=== PATIENT | male | born 1965 | race Caucasian/White ===

== ENCOUNTER 2024-11-07 04:06 | Inpatient (IN) | payer OTHER, SELFPAY ==
[2024-11-07] VITALS (16 sets, daily range): BP systolic 96–114; BP diastolic 63–82; PULSE 56–107; RESP 12–25; TEMP 36.6–36.9; O2SAT 96–100; BMI 33.3
--- NOTE | 2024-11-07 04:04 | PCM.HP.STD ---
HPI - General General Date of Admission: 11/07/24 Date of Service: 11/07/24 Chief Complaint: A-fib with RVR HPI Narrative AMALIA SERVIN, is a 59 M who presented initially to [facility] ED on the evening of 11/06 with chest discomfort and palpitations. He was found there to have new onset A-fib with RVR with rate in the 140s to 150s. Started on Cardizem drip with improvement in rate to the 90s to 100s but remained in A-fib. 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 I saw the patient at bedside this morning. Patient was laying back comfortably in bed, conversing normally, in no acute distress. He does report mild chest discomfort with palpitations currently and on the monitor he remains in A-fib with rate in the 90s to 100s. He is currently on the Cardizem drip at 5. Patient has no significant past medical history, is on no medications at home. He reports an episode similar to this about 1 month ago that lasted for 10 to 15 minutes and then resolved on its own. He denies any alcohol or tobacco use. At outside ED, his lab workup was benign with troponins negative x 2, normal BNP and normal TSH. CBC and BMP were unremarkable. [facility] Home Medications ?Medication ?Instructions ?Recorded ?Last Taken ?Type NK 11/07/24 Unknown History Allergy/AdvReac Type Severity Reaction Status Date / Time Penicillins Allergy Severe Anaphylaxis Verified 11/07/24 04:07 Social History Smoking Status: Never smoker ROS Constitutional Constitutional: Denies chills, fatigue, fever(s) or weakness Eyes Eyes: Denies change in vision Cardiovascular Cardiovascular: Reports chest pain, palpitations and rapid heart rate; Denies dyspnea on exertion, edema, lightheadedness or orthopnea Respiratory/Chest Respiratory/Chest: Denies cough, shortness of breath at rest or wheezing Gastrointestinal Gastrointestinal: Denies abdominal pain Neurologic Neurologic: Denies dizziness Vital Signs Vital Signs Vital Signs: Weight Weight: 105.3 kg Body Mass Index (BMI) 33.3 Physical Exam Const alert, oriented x3 and no apparent distress Constitutional Narrative: Pleasant middle-age male, class I obesity, sitting back comfortably in bed, conversing normally, in no acute distress. General Appearance: cooperative and comfortable HEENT normocephalic, head/scalp atraumatic, hearing grossly normal bilaterally, nasal mucous membranes and turbinates normal and moist oral mucous membranes Eyes PERRL, EOMs intact bilaterally and conjunctivae normal Neck full ROM Chest inspection of chest normal Resp normal respiratory effort, normal air movement, no use of accessory muscles and clear to auscultation bilaterally Cardio no murmurs and peripheral pulses 2+ throughout Cardio Narrative: A-fib, rate controlled. GI normal to inspection, nondistended, normoactive bowel sounds, soft to palpation, non-tender and non-distended Back/Spine normal ROM Extremity normal to inspection, full ROM and no pedal edema Skin no rashes or lesions noted Psych mental status grossly normal Results Lab / Micro Data 11/07/24 04:25 11/07/24 04:25 Assessment & Plan Assessment/Plan (1) Paroxysmal atrial fibrillation with RVR: PLAN: Plan Patient is a 59-year-old male who initially presented to [facility] ED on 11/06/2024 with chest discomfort and palpitations. Was found to have new onset A-fib with RVR and was transferred to [facility] on 11/07 for further management. 1. New onset A-fib with RVR ? Admit under inpatient status to PCU. Cardiology consulted. No significant past medical history. Presented with A-fib with RVR with rate to the 140s 150s. Rate improved to the 90s to 100s on Cardizem drip but remains in A-fib. Episode of chest discomfort with palpitations started about 30 minutes prior to his arrival to their ED. Appears patient may be a good cardioversion candidate but will defer this to cardiology. Will keep patient n.p.o. for now. Will continue Cardizem and heparin drips. 2. Class I obesity ? BMI 33 on admit. Complicates hospital course, care and prognosis. DVT prophylaxis: Not indicated, on heparin drip CODE STATUS: Full code, verified Expected disposition: Home, TBD Total clinical time spent by myself addressing the patient's medical issues, reviewing all the data, and collaborating with patient's care team: 55 minutes. Charges/Coding Visit Charges Inpatient E&M: 93529 Init Hosp L2
[2024-11-07] MEDS: Diltiazem 125 MG in Dextrose 5%-Water (100mL Bag) 100 ML IV (04:28)
[2024-11-07] MEDS: HEPARIN/D5w 25,000 UNITS 25,000 UNITS/250 ML IV.SOLN. 15 UNITS CONT INF (04:29)
[2024-11-07 04:45] LABS: Hematocrit 45.2 % (40-54); Hemoglobin 15.3 g/dL (13.0-16.5); Immature Granulocytes Count 0.020 X10^3/uL (0.0-0.0); Mean Corp Hgb Conc 33.8 g/dL (32-36); Mean Corpuscular Volume 91.7 fL (80-94); Mean Platelet Vol. 11.9 fl (6.2-12.0); NRBC Flagged by Analyzer 0 % (0-5); Platelet Count 222 K/mm3 (150-450); RBC Distribution Width CV 13.2 % (11.6-14.6); RBC Distribution Width SD 44.6 fl (35.1-43.9); Red Blood Count 4.93 M/mm3 (4.6-6.2); White Blood Count 7.7 K/mm3 (4.4-11.0)
[2024-11-07 05:24] LABS: Anion Gap 11 (5-15); BUN 16 mg/dL (4-19); BUN/Creat Ratio 18.3 RATIO (10-20); Calcium,Total 9.3 mg/dL (7.6-11.0); Carbon Dioxide 21.8 mmol/L (21.0-32.0); Chloride 108 mmol/L (98-108); Estimated Creatinine Clearance 112.40 ml/min (50-250); Glucose 124 mg/dL (70-99); Potassium 4.0 mmol/L (3.3-5.1)
[2024-11-07 05:32] LABS: Partial Thromboplast Time 34.1 Seconds (24.1-36.2)
[2024-11-07] MEDS: Heparin Injection (Vial) 5,000 UNIT/ML VIAL IV (06:19)
--- NOTE | 2024-11-07 07:30 | ECHOD_ITS ---
Reason For Study Reason For Study: Arrhythmia Procedure This was a 2D Doppler, Color Flow transthoracic echocardiogram. Exam performed in department. Left Ventricle Normal LV size. Moderate concentric left ventricular hypertrophy. Left ventricular systolic function is normal. The left ventricular ejection fraction is 55 %. No regional wall motion abnormalities noted. Right Ventricle Normal RV size. Normal systolic function. Atria Normal left atrium. Normal right atrium. Mitral Valve Normal mitral valve. Tricuspid Valve Normal tricuspid valve. Mild tricuspid valve insufficiency. Pulmonary artery systolic pressure is 28 mmHg. Aortic Valve Trisinus/trileaflet aortic valve. Pulmonic Valve Normal pulmonic valve. Great Vessels Mildly dilated aortic root. The pulmonary artery is normal size. Inferior vena cava collapse with respiration. Pericardium/Pleural No pericardial effusion. MMode/2D Measurements & Calculations LVIDd: 5.0 cm IVSd: 1.3 cm Ao root diam: 4.1 cm LVIDs: 3.5 cm LVPWd: 1.3 cm RVDd: 3.5 cm FS: 30.1 % LAV(MOD-bp): 61.1 ml LVAd ap4: 26.5 cm2 SV(MOD-sp4): 38.6 ml LAV(MOD-bp) Indexed: 27.5 ml/m2 LVLd ap4: 7.6 cm SI(MOD-sp4): 17.4 ml/m2 LAV(MOD-sp2): 62.6 ml EDV(MOD-sp4): 75.0 ml LAV(MOD-sp4): 55.3 ml EDV(sp4-el): 78.2 ml LVAs ap4: 16.5 cm2 LVLs ap4: 6.3 cm ESV(MOD-sp4): 36.4 ml ESV(sp4-el): 36.5 ml EF(MOD-sp4): 51.4 % EF(sp4-el): 53.4 % SV(sp4-el): 41.7 ml LA A4 area: 19.7 cm2 LA dimension(2D): 4.3 cm RA A4 area: 16.7 cm2 Doppler Measurements & Calculations MV E max galileo: 103.7 cm/sec MV V2 max: 104.3 cm/sec Ao V2 max: 109.8 cm/sec MV max P.4 mmHg Ao max P.9 mmHg MV V2 mean: 56.5 cm/sec MV mean P.7 mmHg MV V2 VTI: 22.2 cm LV V1 max: 105.1 cm/sec PA V2 max: 90.0 cm/sec TR max galileo: 251.2 cm/sec LV V1 max P.4 mmHg PA V2 mean: 67.7 cm/sec TR max P.2 mmHg ECHO/Echo Complete Interpretation Summary Normal LV size. Left ventricular systolic function is normal. The left ventricular ejection fraction is 55 %. Moderate concentric left ventricular hypertrophy. Ordering Physician: Mickey Jones Performed By: Pedro Cartagena and Student
--- NOTE | 2024-11-07 07:30 | CON.PCM.CA_ITS ---
Assessment & Plan Assessment/Plan (1) Paroxysmal atrial fibrillation with RVR: PLAN: Patient presents with his second episode of atrial fibrillation with rapid ventricular response rate. He was put on intravenous heparin as well as intravenous diltiazem and his rate is better controlled at this time. Recommendation will be to obtain an echocardiogram to assess his ventricular function Transition him to p.o. Eliquis Transition him to p.o. metoprolol and depending on what happens to his rate further recommendations will be made as well as the results of the echocardiogram. Above has been explained to him. At some point he may need interval cardioversion or chance that an ablation. HPI Consult Data Date of Consult: 11/07/24 HPI Narrative HPI Narrative: AMALIA SERVIN, is a 59 M who presents to the emergency room with palpitations and left arm discomfort. He says that he was fine until approximately a month ago when he started experiencing some palpitations as well as left arm discomfort. He waited for a few hours and this resolved and dissipated. He subsequently had another episode yesterday and so decided to present to the emergency room. In the emergency room he was noted to be in atrial fibrillation with a rapid ventricular response rate he was transferred from [place] to here. [facility] Home Medications ?Medication ?Instructions ?Recorded ?Last Taken ?Type NK 11/07/24 Unknown History Allergy/AdvReac Type Severity Reaction Status Date / Time Penicillins Allergy Severe Anaphylaxis Verified 11/07/24 04:07 Social History Smoking Status: Never smoker ROS Constitutional Constitutional: Denies fever(s) or weight loss Eyes Eyes: Reports systems reviewed and no addt'l complaints, except as documented ENT HEENT: Reports systems reviewed and no addt'l complaints, except as documented Cardiovascular Cardiovascular: Reports chest pain at rest, dyspnea at rest and palpitations; Denies chest pain with activity, dyspnea on exertion, edema or paroxysmal nocturnal dyspnea Respiratory/Chest Respiratory/Chest: Denies dyspnea on exertion, productive cough, shortness of breath at rest or shortness of breath with exertion Gastrointestinal Gastrointestinal: Denies change in bowel habits, nausea, vomiting or weight changes Genitourinary Genitourinary: Denies difficulty urinating Musculoskeletal Musculoskeletal: Denies joint stiffness or muscle weakness Integumentary Integumentary: Denies lesions Neurologic Neurologic: Denies dizziness or syncope Psychiatric Psychiatric: Denies anxiety Endocrine Endocrinology: Denies excessive sweating or fatigue Hematologic/Lymphatic Hematologic/Lymphatic: Denies anemia Allergic/Immunologic Allergic/Immunologic: Denies seasonal rhinorrhea Physical Exam Const alert, oriented x3 and no apparent distress General Appearance: cooperative HEENT hearing grossly normal bilaterally Head and Scalp: atraumatic Eyes EOMs intact bilaterally Neck General: normal visual inspection Chest inspection of chest normal and palpation of chest normal Resp normal respiratory effort Auscultation: clear to auscultation bilaterally Cardio S1 normal heart sound and S2 normal heart sound Jugular Venous Distention: JVD Rhythm: abnormal rhythm irregularly irregular GI normal to inspection, nondistended, normoactive bowel sounds Extremity normal capillary refill and no pedal edema Peripheral Pulses: Yes pulses 2+ throughout and femoral pulses present Skin no rashes or lesions noted Neuro oriented x3 and CN's II-XII intact bilaterally Psych Appearance: grossly normal and appropriate Risk Stratification Risk Stratification Applicable: No Objective Data Vital Signs: Vital Signs Temp Pulse Resp BP Pulse Ox O2 Del Method 98.2 F 88 25 H 102/73 97 Room Air 11/07/24 04:30 11/07/24 06:00 11/07/24 06:00 11/07/24 06:00 11/07/24 06:00 11/07/24 06:00 Oxygen Delivery Method Room Air Weight: 232 lb 2.348 oz Body Mass Index (BMI) 33.3 Intake & Output: Intake and Output for Last 24 Hours 11/05/24 11/06/24 11/07/24 23:59 23:59 23:59 Intake Total 35.67 / 35.67 Balance 35.67 / 35.67 Lab / Micro Data 11/07/24 04:25 11/07/24 04:25 Labs: Laboratory Results - last 24 hr 11/07/24 04:25: WBC 7.7, RBC 4.93, Hgb 15.3, Hct 45.2, MCV 91.7, MCH 31.0, MCHC 33.8, RDW Std Deviation 44.6 H, RDW Coeff of Tiffanie 13.2, Plt Count 222, MPV 11.9, Immature Gran % (Auto) 0.300, Neut % (Auto) 51.3, Lymph % (Auto) 38.4, [place] % (Auto) 6.8, Eos % (Auto) 2.0, Baso % (Auto) 1.2 H, Absolute Neuts (auto) 4.0, Absolute Lymphs (auto) 2.95, Nucleated RBC % 0, APTT 34.1, Sodium 140, Potassium 4.0, Chloride 108, Carbon Dioxide 21.8, Anion Gap 11, BUN 16, Creatinine 0.86, Estim Creat Clear Calc 112.40, Est GFR (MDRD) Non-Af 100, BUN/Creatinine Ratio 18.3, Glucose 124 H, Calcium 9.3 Cardiology Labs/Tests 11/07/24 04:25: WBC 7.7, RBC 4.93, Hgb 15.3, Hct 45.2, MCV 91.7, MCH 31.0, MCHC 33.8, Plt Count 222, MPV 11.9, Immature Gran % (Auto) 0.300, Neut % (Auto) 51.3, Lymph % (Auto) 38.4, [place] % (Auto) 6.8, Eos % (Auto) 2.0, Baso % (Auto) 1.2 H, Absolute Neuts (auto) 4.0, Nucleated RBC % 0, APTT 34.1, Sodium 140, Potassium 4.0, Chloride 108, Carbon Dioxide 21.8, Anion Gap 11, BUN 16, Creatinine 0.86, Est GFR (MDRD) Non-Af 100, BUN/Creatinine Ratio 18.3, Glucose 124 H, Calcium 9.3 Rhythm: EKG: ECHO: Stress Test: Cardiac Cath: PCI: CT Surgery: Holter monitor: EPS: PPM: CXR: Chest CT Scan:
--- NOTE | 2024-11-07 07:41 | PN.HOSP_ITS ---
Reason for Visit Reason for Visit: Diagnoses Paroxysmal atrial fibrillation (11/07/24) Subjective Subjective Feeling well. Since converted to NSR. Objective Data Objective Data Vital Signs: Vital Signs Temp Pulse Resp BP Pulse Ox O2 Del Method 36.8 C 88 25 H 102/73 97 Room Air 11/07/24 04:30 11/07/24 06:00 11/07/24 06:00 11/07/24 06:00 11/07/24 06:00 11/07/24 06:00 Oxygen Delivery Method Room Air Weight: 105.3 kg Body Mass Index (BMI) 33.3 Intake & Output: Intake and Output for Last 24 Hours 11/05/24 11/06/24 11/07/24 23:59 23:59 23:59 Intake Total 35.67 / 35.67 Balance 35.67 / 35.67 Lab / Micro Data 11/07/24 04:25 11/07/24 04:25 Labs: Laboratory Results - last 24 hr 11/07/24 04:25: WBC 7.7, RBC 4.93, Hgb 15.3, Hct 45.2, MCV 91.7, MCH 31.0, MCHC 33.8, RDW Std Deviation 44.6 H, RDW Coeff of Tiffanie 13.2, Plt Count 222, MPV 11.9, Immature Gran % (Auto) 0.300, Neut % (Auto) 51.3, Lymph % (Auto) 38.4, [place] % (Auto) 6.8, Eos % (Auto) 2.0, Baso % (Auto) 1.2 H, Absolute Neuts (auto) 4.0, Absolute Lymphs (auto) 2.95, Nucleated RBC % 0, APTT 34.1, Sodium 140, Potassium 4.0, Chloride 108, Carbon Dioxide 21.8, Anion Gap 11, BUN 16, Creatinine 0.86, Estim Creat Clear Calc 112.40, Est GFR (MDRD) Non-Af 100, BUN/Creatinine Ratio 18.3, Glucose 124 H, Calcium 9.3 Physical Exam Const alert and no apparent distress HEENT head/scalp atraumatic and moist oral mucous membranes Resp normal respiratory effort, no retractions, no use of accessory muscles and clear to auscultation bilaterally Cardio regular rate, regular rhythm, S1 normal heart sound and S2 normal heart sound GI normal to inspection, nondistended, normoactive bowel sounds, soft to palpation and non-tender Assessment & Plan Assessment/Plan (1) Paroxysmal atrial fibrillation with RVR: PLAN: converted to NSR. Suspect he has likely had intermittent afib. cardiology consult. check echo on apixaban and metoprolol tartrate 50 BID. PLAN: Plan Obesity class I: complicates care and recovery. VTE prophylaxis: not indicated as already anticoagulated. DW pt's at bedside. Charges/Coding Visit Charges Inpatient E&M: 82633 Subs Hosp L2
--- NOTE | 2024-11-07 09:51 | CASEMGMT ---
Dx: Afib with RVR LACE: 1 6-Clicks: 24 Medical record reviewed and patient evaluated for identification of discharge planning needs. Based on this review, at this time criteria are not present to indicate a need for discharge planning. Will remain available to assist with discharge planning needs as identified or requested.
[2024-11-07] MEDS: APIXABAN 5 MG TABLET PO (10:30)
[2024-11-07] MEDS: 0.9% Saline Lock 10 ML Syringe IV (10:37)
--- NOTE | 2024-11-07 10:53 | NURSING ---
educating patient and onafib converted in conversation called for ekg does not feel any different
--- NOTE | 2024-11-07 12:42 | CASEMGMT ---
Social Work - Initial Care Coordination Assessment SW?to room to meet with patient for initial transition planning/care coordination?assessment.?SW?introduced self and role at [facility].? Pt voices understanding and consents to?assessment.? Pt is A/Ox4 and answers all questions appropriately.?? Care providers, pharmacy, and demographics verified. PCP: Patariraquel Specialists: none Preferred Pharmacy: [facility] Insurance: [employer] Prescription Benefit:? yes Living Will/HPOA:?none. Information provided LNOK: Monica Manjarrez Living Arrangements: Pt lives with his in a one story home with 3 steps to enter. Pt is independent with all ADLs and IADLs. Transportation:? Pt drives, no concerns with transportation DME: ? none HHC/SNF: none prior PLAN: Pt plans to return home at time of discharge and has no discharge needs at this time. Pt present and agreeable with dc plan. MYRTLE Herrera
--- NOTE | 2024-11-07 15:35 | DS.PCM_ITS ---
Providers Date of Admission: 11/07/24 Primary Care Physician: Dr. Shawn Zuluaga MD Consultations 11/07/24 05:47 Consult: Cardiology Routine Consulting Provider: Mickey Jones Reason for Consult: new onset afib w/ rvr, consider DCCV? EMERGENT Consult: No Notified: Yes Date Notified: 11/07/24 Time Notified: 05:47 Method of Notification: Text Method of Consult:: In-Person Reason For Visit: AFIB RVR Diagnosis Discharge Diagnosis (1) Paroxysmal atrial fibrillation with RVR: Status: Acute Code(s): I48.0 - Paroxysmal atrial fibrillation Plan: converted to NSR. Suspect he has likely had intermittent afib. cardiology consult. check echo on apixaban and metoprolol tartrate 50 BID. Plan Obesity class I: complicates care and recovery. VTE prophylaxis: not indicated as already anticoagulated. DW pt's at bedside. Medications at Discharge Home Medications NK 11/07/24 apixaban 5 mg tablet (Eliquis) 5 mg PO BID #60 tabs 11/07/24 metoprolol tartrate 50 mg tablet 50 mg PO BID #60 tabs 11/07/24 Hospital Course Operations None Procedures 2-D Echocardiogram Summary of Care Provided Minutes Spent on Discharge: 32 Weight / BMI Weight Weight: 105.3 kg Body Mass Index (BMI) 33.3 ABG / Lab / Microbiology Data 11/07/24 04:25 11/07/24 04:25 Laboratory: Laboratory Results - last 24 hr 11/07/24 04:25: WBC 7.7, RBC 4.93, Hgb 15.3, Hct 45.2, MCV 91.7, MCH 31.0, MCHC 33.8, RDW Std Deviation 44.6 H, RDW Coeff of Tiffanie 13.2, Plt Count 222, MPV 11.9, Immature Gran % (Auto) 0.300, Neut % (Auto) 51.3, Lymph % (Auto) 38.4, [place] % (Auto) 6.8, Eos % (Auto) 2.0, Baso % (Auto) 1.2 H, Absolute Neuts (auto) 4.0, Absolute Lymphs (auto) 2.95, Nucleated RBC % 0, APTT 34.1, Sodium 140, Potassium 4.0, Chloride 108, Carbon Dioxide 21.8, Anion Gap 11, BUN 16, Creatinine 0.86, Estim Creat Clear Calc 112.40, Est GFR (MDRD) Non-Af 100, BUN/Creatinine Ratio 18.3, Glucose 124 H, Calcium 9.3 Radiography Diagnostic Testing: Radiology Impression Echocardiogram 11/07/24 07:30 Interpretation Summary Normal LV size. Left ventricular systolic function is normal. The left ventricular ejection fraction is 55 %. Moderate concentric left ventricular hypertrophy. Ordering Physician: Mickey Jones Performed By: Pedro Cartagena and Student D/C Instructions Discharge Diet: No restrictions Return to work on: 11/08/24 DC O2, CPAP, BIPAP Needs Home O2 Discharge instructions: No Meaningful Use Info Meaningful Use Meaningful Use Diagnoses (Choose all that apply): None applicable Ischemic Stroke Statin Dosing Therapy Reference: STATIN DOSE THERAPY REFERENCE: * Patients > 75 years receive moderate or high dose statin therapy. * Patients 75 years or YOUNGER should receive HIGH intensity statin dose unless contraindicated. You will be required to document reason for non-treatment if statin daily dose does not meet guidelines. HIGH DOSE STATIN THERAPY DAILY Atorvastatin > than or = to 40 mg Rosuvastatin > than or = to 20 mg Amlodipine + Atorvastatin > than or = to 2.5/40 mg Ezetimibe + Simvastatin 10/80 mg Simvastatin 80mg Discharge Plan Admission Admit Date/Time: 11/07/24 04:06 Primary Reason for Your Visit: atrial fibrillation Attending Provider: Aurelio Raines Primary Care Provider: Shawn Zuluaga Consulting Providers: Mickey Jones; Víctor Villafuerte Discharge Orders/Prescriptions Prescriptions: New metoprolol tartrate 50 mg Tablet 50 mg PO BID Qty: 60 0RF Eliquis 5 mg Tablet 5 mg PO BID Qty: 60 0RF No Action NK Referrals / Follow Up: [facility] [Provider Group] - Within 1 Month Shawn Zuluaga MD [Primary Care Provider] - Within 2 Weeks Disposition Disposition (needs filled in before D/C Order can be placed): Home, Self Care Charges/Coding Visit Charges Inpatient E&M: 35598 Disch Hosp >30min
--- NOTE | 2024-11-07 16:22 | CASEMGMT ---
Patient to discharge on Eliquis. ARTEMIO VILLATORO [facility], copay is $584.07 as patient has deductible. ARTEMIO VILLATORO in to patient's room and provided with $10 copay card. Patient denies further needs or concerns. Patient had no further questions.
== END 2024-11-07 18:07 | disposition home or self-care (01) | DRG 310 ==
PROVIDERS: Admitting Provider Hospitalist; PCP Family Medicine
DX: I48.0 Paroxysmal atrial fibrillation (principal); E66.811 Obesity, class 1; Z68.33 Body mass index [BMI] 33.0-33.9, adult
CPT/HCPCS: 36415; 80048; 85025; 85730; 93005; 93306; 94668; 97802; Q9957; A4216

== ENCOUNTER → 2024-12-27 | Outpatient (CLI) | payer OTHER, SELFPAY ==
--- OUTSIDE RECORDS SUMMARY | 2024-12-27 06:49 | XMS RPT_ITS | CCD ---
Author Organization [facility] [place] Care Team Providers Care Nail Puller Name Role Phone Cherise Mcdonald Unavailable Unavailable Dinh Hennessy Unavailable Unavailable Barb MCDONALD Attending Unavailable YAMILE GALARZA Attending Unavailable SHLOMO BETANCOURT N.P. Attending Unav cherelle Hennessy MD, Dinh Caballero Unavailable Physical Therapy, [facility] [place] Unavailable HlivkoNO LONGER HERE , Dr. Ronen emanuel Unavailable Krystle CIGAR INSPECTOR, Mary Unavailable Kang Sidhu PA-C Unavailable Cyrus CIGAR INSPECTOR, Curry Unavailable Unavailable Zaugg CIGAR INSPECTOR, Janny Unavailable Unavailable Unavailable Unavailable Dr. Dinh Hennessy MD Primary Care Provider Dr. Víctor Villafuerte DO Admit Provider Dr. Víctor Villafuerte DO Other Provider Dr. Mickey Jones MD Other Provider Dr. Aurelio Raines DO Attending Provider Dr. Miceky Jones MD Attending Provider [phone] FÉLIX MURRAY, DR NITA Marinelli Attending Marco Antonio emanuel PHYSICIAN, NONE Primary Care Unavailable DINH HENNESSY Consulting Unavailable SANJU COLON DO Admitting Unavailable DINH HENNESSY Referring Unavailable SANJU COLON DO Attending Unavailable SANJU COLON DO Primary Care Unavailable PROVIDER, UNKNOWN Consulting Unavailable PROVIDER, UNKNOWN Consulting Unavailable PROVIDER, UNKNOWN Consulting Unavailable DINH HENNESSY Consulting Unavailable KANG SIDHU Attending Unavailable KANG SIDHU Primary Care Unavailable KANG SIDHU Admitting Unavailable PROVIDER, UNKNOWN Consulting Unavailable PROVIDER, UNKNOWN Consulting Unavailable PROVIDER, UNKNOWN Consulting Unavailable DINH HENNESSY Consulting Unavailable KANG SIDHU Attending Unavailable KANG SIDHU Primary Care Unavailable KANG SIDHU Admitting Unavailable PROVIDER, UNKNOWN Consulting Unavailable PROVIDER, UNKNOWN Consulting Unavailable PROVIDER, UNKNOWN Consulting Unavailable Orthopedic Provider Unavailable Unavailable Kallie Dey Attending Provider [phone] Dr. Dinh Hennessy MD Referring Provider Dinh Gay Attending Provider [phone] Kang Claudio Primary Care Provider [phone] Víctor Villafuerte Admitting Unavailable Víctor Villafuerte Consulting Unavailable Víctor Villafuerte Attending Unavailable Zan, Dinh Primary Care Unavailable Mickey Jones Attending Unavailable Vacckayleen, Dinh Primary Care Unavailable Kallie Patricia NP Attending Unavailable Dinh Hennessy Primary Care Unavailable Víctor Villafuerte Admitting Unavailable Karen, Mickey Consulting Unavailable Dinh Hennessy Primary Care Unavailable Aurelio Raines Attending Unavailable Víctor Villafuerte Consulting Unavailable Dinh Cabrales NP Attending Unavailable Dinh Hennessy Referring Unavailable Kang Sidhu Primary Care Unavailable Allergies Allergy Classification Reported Allergen(s) Allergy Type Date of Onset Reaction(s) Facility (14 sources) Penicillins [facility]. (2 sources) Penicillins Allergy to substance 11-07-2024 Anaphylaxis [facility] (1 source) Penicillin Drug Allergy [facility] (1 source) Penicillins Drug allergy (disorder) 12-03-2024 [facility] Medications Current Medications Medication Drug Class(es) Dates Sig (Normalized) Sig (Original) apixaban 5 mg oral tablet (7 sources) Factor Xa Inhibitor Start: 11-07-2024 End: 12-03-2024 take 1 tablet by mouth twice daily Apixaban (Eliquis) 5 mg tablet Active 5 mg PO TWICE A DAY 60 1 December 03, 2024 2:49pm ibuprofen 200 mg oral tablet (1 source) Nonsteroidal Anti-inflammatory Drug Start: 12-03-2024 take 2 tablets by mouth once as needed Ibuprofen 200 mg tablet Active 400 mg PO ONCE as needed December 03, 2024 12:00am metoprolol tartrate 50 mg oral tablet (7 sources) beta-Adrenergic Ethan Start: 11-07-2024 End: 12-03-2024 take 1 tablet by mouth twice daily Metoprolol Tartrate 50 mg tablet Active 50 mg PO TWICE A DAY 180 3 December 03, 2024 2:49pm [place] (Nk) (1 source) Start: 11-07-2024 [place] (Nk) Active November 07, 2024 12:00am Completed/Discontinued Medications Medication Drug Class(es) Dates Sig (Normalized) Sig (Original) clindamycin 300 mg oral capsule (14 sources) Lincosamide Antibacterial Start: 10-26-19 End: 11-05-19 clindamycin HCL 300 mg capsule ; 1 Capsule 3 times per day for 10 days Quantity: 30 {Capsule} Refills: 0 Ordered: 25-Oct-2022 KAYLEE Sidhu Start: 25-Oct-2022 End: 04-Nov-2022 Status: Inactive doxycycline hyclate 100 mg oral tablet (13 sources) Tetracycline-clas s Drug Start: 03-01-20 End: 03-08-20 24 doxycycline hyclate 100 mg tablet ; 1 (one) tablet two times daily for 7 days Quantity: 14 {Tablet} Refills: 0 Ordered: 01-Mar-2024 KAYLEE Sidhu Start: 01-Mar-2024 End: 08-Mar-2024 Status: Inactive hydroCHLOROthiazide 25 mg oral tablet (14 sources) Thiazide Diuretic Start: 01-23-20 19 End: 03-01-20 24 hydroCHLOROthiazide 25 mg tablet ; 1 (one) Tablet qam for 0 days Quantity: 30 {Tablet} Refills: 5 Ordered: 01-Mar-2024 ARABELLA Bridges Start: 22-Jan-2019 End: 01-Mar-2024 Status: Inactive lisinopril 20 mg oral tablet (14 sources) Angiotensin Converting Enzyme Inhibitor Start: 12-01-19 18 End: 06-07-19 19 take 1 tablet by mouth once daily Lisinopril 20 MG Oral Tablet ; 1 (one) Tablet Tablet daily for 0 days Quantity: 30 {Tablet} Refills: 11 Ordered: 07-Jun-2018 MD Dinh Hennessy Start: 30-Nov-2017 End: 07-Jun-2018 Status: Inactive nystatin 100 unt/mg topical ointment (14 sources) Polyene Antifungal Start: 10-26-19 End: 03-01-20 24 nystatin 100,000 unit/gram topical ointment ; 1 application 2 times per day for 0 days Quantity: 30 {Gram} Refills: 0 Ordered: 01-Mar-2024 ARABELLA Bridges Start: 25-Oct-2022 End: 01-Mar-2024 Status: Inactive omeprazole 20 mg delayed release oral capsule (14 sources) Proton Pump Inhibitor Start: 09-28-19 End: 03-01-20 omeprazole 20 mg capsule,delayed release ; 1 (one) Capsule daily for 0 days Quantity: 30 {Capsule} Refills: 5 Ordered: 01-Mar-2024 ARABELLA Bridges Start: 27-Sep-2018 End: 01-Mar-2024 Status: Inactive Problems Active Problems Problem Classification Problem Date Documented Da te Episodic/Chronic Cardiac dysrhythmias (14 sources) Paroxysmal atrial fibrillation; Translations: [Paroxysmal atrial fibrillation with rapid ventricular response] Onset: 11-07-2024 Chronic Coronary atherosclerosis and other heart disease (14 sources) Coronary arteriosclerosis 02-29-2024 Chronic Comment on above: grandmother Esophageal disorders (20 sources) Gastroesophageal reflux disease; Translations: [Gastro-esophageal reflux disease without esophagitis] 03-02-2023 Chronic Essential hypertension (20 sources) Hypertensive disorder; Translations: [Essential (primary) hypertension] 03-02-2023 Chronic Genitourinary symptoms and ill-defined conditions (20 sources) Proteinuria; Translations: [Proteinuria, unspecified] 03-02-2023 Episodic Other aftercare (6 sources) Post-discharge follow-up; Translations: [Encounter for follow-up examination after completed treatment for conditions other than malignant neoplasm] 11-23-2024 Episodic Other connective tissue disease (20 sources) Prepatellar bursitis of right knee; Translations: [Prepatellar bursitis, right knee] 03-02-2023 Episodic Other eye disorders (20 sources) Pain of left eye; Translations: [Ocular pain, left eye] 03-02-2023 Episodic Other gastrointestinal disorders (20 sources) Acute constipation; Translations: [Constipation, unspecified] 03-02-2023 Episodic Other inflammatory condition of skin (20 sources) Intertrigo; Translations: [Erythema intertrigo] 03-02-2023 Episodic Other lower respiratory disease (20 sources) Angiotensin-converting -enzyme inhibitor adverse reaction; Translations: [Cough] 03-02-2023 Episodic Other lower respiratory disease (20 sources) Productive cough ; Translations: [Cough] 04-03-2021 Episodic Other lower respiratory disease (20 sources) Dyspnea on exertion; Translations: [Other forms of dyspnea] 03-02-2023 Episodic Other nervous system disorders (20 sources) Numbness of foot ; Translations: [Other disturbances of skin sensation] 03-02-2023 Episodic Other non-traumatic joint disorders (20 sources) Hip pain; Translations: [Pain in right hip] 03-02-2023 Episodic Other non-traumatic joint disorders (20 sources) Pain in left knee; Translations: [Pain in joint, lower leg] 11-30-2017 Episodic Other non-traumatic joint disorders (20 sources) Pain in right shoulder; Translations: [Pain in joint, shoulder region] 03-21-2024 Episodic Other nutritional; endocrine; and metabolic disorders (20 sources) Body mass index 30+ - obesity; Translations: [Body mass index (BMI) 34.0-34.9, adult] 02-29-2024 Chronic Other nutritional; endocrine; and metabolic disorders (20 sources) Obesity; Translations: [Obesity, unspecified] 03-02-2023 Chronic Other nutritional; endocrine; and metabolic disorders (14 sources) Obese class I; Translations: [Obesity, unspecified] 02-29-2024 Chronic Other skin disorders (20 sources) Skin tag; Translations: [Other hypertrophic disorders of the skin] 03-21-2024 Episodic Other upper respiratory infections (20 sources) Sinusitis; Translations: [Chronic sinusitis, unspecified] 03-01-2024 Chronic Other upper respiratory infections (20 sources) Streptococcal sore throat; Translations: [Streptococcal pharyngitis] 03-02-2023 Episodic Residual codes; unclassified (20 sources) Daytime somnolence; Translations: [Other hypersomnia] 03-02-2023 Chronic Residual codes; unclassified (20 sources) Edema of lower extremity; Translations: [Localized edema] 03-02-2023 Episodic Residual codes; unclassified (14 sources) Snuff user; Translations: [Other specified health status] 02-29-2024 Episodic Skin and subcutaneous tissue infections (20 sources) Cellulitis; Translations: [Cellulitis, unspecified] 03-02-2023 Episodic Spondylosis; intervertebral disc disorders; other back problems (1 source) Degeneration of cervical intervertebral disc; Translations: [Other cervical disc degeneration, unspecified cervical region] 12-03-2024 Chronic Spondylosis; intervertebral disc disorders; other back problems (20 sources) Chronic low back pain; Translations: [Lumbago with sciatica, right side] 03-02-2023 Episodic Unclassified (1 source) Unknown / UNK(Unknown) Onset: Unclassified (14 sources) Back pain - The onset of the back pain has been acute and has been occurring in a persistent pattern for 2 months. The course has been increasing. The pain is characterized as piercing, shooting and burning. The pain is located in the lower back and radiates to the right thigh and left thigh. The symptoms are aggravated by exertion and have no relieving factors. The pain has been associated with hip pain. 04-03-2021 Past or Other Problems Problem Classification Problem Date Documented Date Episodic/Chronic Unclassified (1 source) ABD PAIN,ILIAC COMPRESSION~ Onset: 02-11-2018 Unclassified (1 source) PRE CTA HYPERTENSION Onset: 01-26-2018 Unclassified (14 sources) Cough - The cough has been occurring in a persistent pattern for 1 week. The course has been constant. The cough is characterized as productive of mucoid sputum. The amount of sputum is less than a half a cup per day. The cough occurs mostly in the mold filler. The cough is aggravated by exposure to dust. Associated symptoms include hoarseness. 03-01-2024 Unclassified (14 sources) Knee pain - The knee pain has been occurring in a persistent pattern for 1 month. The course has been increasing. The knee pain is moderate to severe in both knees. The knee pain is characterized as a sharp stabbing. The knee pain is described as being located in the entire knee. The knee pain is aggravated by physical activity. There were no relieving factors. The symptoms have been associated with joint swelling. 03-02-2023 Unclassified (2 sources) Multiple c/o - Pt has unhealed sore on left middle finger and is red and gaulded in groin. 10-25-2022 Unclassified (2 sources) [ADDITIONAL REASON] Cold Symptoms - Symptoms include sore throat (Tenderness in back of throat) and dry cough. The onset was 1 week(s) ago. The patient describes this as mild. 10-25-2022 Unclassified (14 sources) Cough - The onset of the cough has been gradual and has been occurring for 6 months. The course has been recurrent. The cough is characterized as dry. The cough occurs all the time. Associated symptoms include dysphagia and a long history of smoking, while there is no chest pain, dyspnea, fever, nasal congestion or runny nose. Note for Cough: -In March tx as GERD. He has tried Tums, Maalox, omeprazole and it is not improving. He reports that his tongue james and it is now hard to swallow. 06-07-2018 Unclassified (14 sources) Cough - The onset of the cough has been gradual and has been occurring for 4 months. The course has been recurrent. The cough is characterized as dry. The cough occurs all the time. Associated symptoms include dysphagia and a long history of smoking, while there is no chest pain, dyspnea, fever, nasal congestion or runny nose. 03-22-2018 Unclassified (13 sources) Leg swelling - The onset of the leg swelling has been gradual and has been occurring in a persistent pattern for weeks. The course has been constant. The leg swelling is described as moderate. The leg swelling is described as being located in the left calf and right calf. The symptoms have been associated with pain, while the symptoms have not been associated with erythema, shortness of breath, chest pain or decreased range of motion. Note for Leg swelling: -His initial pain was in the left knee. No known injury. Now there is edema in the calf and some red itchy areas. He also has pain in the right knee. He did go to [employer] and [facility] told him the right leg was a result of previous surgery and there is nothing she can do for it. 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 Did take blood pressure meds in . 12-01-2017 Unclassified (12 sources) Cold Symptoms - Symptoms include sore throat (Tenderness in back of throat) and dry cough. The onset was 1 week(s) ago. The patient describes this as mild. 10-25-2022 Unclassified (12 sources) [ADDITIONAL REASON] Multiple c/o - Pt has unhealed sore on left middle finger and is red and gaulded in groin. 10-25-2022 Unclassified (11 sources) Shoulder pain - The shoulder pain has been occurring in a persistent pattern for 6 months. The course has been worsening. The pain is characterized as a mild to moderate dull aching. The pain is described as being located in the right shoulder and is aggravated by any movement, overhead activity, lifting and throwing. There are no relieving factors. The symptoms have been associated with painful ROM and decreased ROM. Previous evaluations have been completed by a chiropractor. Note for Shoulder pain: Tingling in fingers on occasion with excessive use. Patient notes a history of rotator cuff repair of the left shoulder surgically in 1990. 03-21-2024 Unclassified (11 sources) [ADDITIONAL REASON] Skin lesion - Note for Skin lesion: Patient notes concern for a large skin tag of his abdomen under his waist line that he would like to have evaluated. He denies pain or dysfunction due to the lesion, he states that it will occasionally get caught while getting dressed but is otherwise not noticeable. Patient denies bleeding. 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 Did take blood pressure meds in . 12-01-2017 Unclassified (1 source) [ADDITIONAL REASON] Leg swelling - The onset of the leg swelling has been gradual and has been occurring in a persistent pattern for weeks. The course has been constant. The leg swelling is described as moderate. The leg swelling is described as being located in the left calf and right calf. The symptoms have been associated with pain, while the symptoms have not been associated with erythema, shortness of breath, chest pain or decreased range of motion. Note for Leg swelling: -His initial pain was in the left knee. No known injury. Now there is edema in the calf and some red itchy areas. He also has pain in the right knee. [facility] told him the right leg was a result of previous surgery and there is nothing she can do for it. 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 11-23-2024 Unclassified (1 source) [ADDITIONAL REASON] Follow up from hospital stay - Name of Hospital: [facility]. Date of Admission: 11/07/24. The patient was hospitalized for AFib. New medications include Eliquis, metoprolol tartrate (Pt compliant with medications). Patient was discharged to home. Current Symptoms: chest pain (Occasional sharp pain and pressure, some anxiety). 11-23-2024 Unclassified (3 sources) [ADDITIONAL REASON] Follow up from hospital stay - Name of Hospital: [facility]. Date of Admission: 11/07/24. The patient was hospitalized for AFib. New medications include Eliquis, metoprolol tartrate (Pt compliant with medications). Patient was discharged to home. Current Symptoms: chest pain (Occasional sharp pain and pressure, some anxiety). Note for Follow up from hospital stay: Patient states that he is feeling well but has experienced increased fatigue and tiredness since hospital discharge and starting new medication. He states that he does get intermittent sharp pain in his chest and shoulder which rapidly resolves and does not seem to be exacerbated by activity. He states that he has not experienced palpitations, dizziness, rapid heart rate, or other symptoms since discharge. 11-23-2024 Unclassified (1 source) Skin lesion - Note for Skin lesion: Patient notes concern for a large skin tag of his abdomen under his waist line that he would like to have evaluated. He denies pain or dysfunction due to the lesion, he states that it will occasionally get caught while getting dressed but is otherwise not noticeable. Patient denies bleeding. 03-21-2024 Unclassified (1 source) [ADDITIONAL REASON] Shoulder pain - The shoulder pain has been occurring in a persistent pattern for 6 months. The course has been worsening. The pain is characterized as a mild to moderate dull aching. The pain is described as being located in the right shoulder and is aggravated by any movement, overhead activity, lifting and throwing. There are no relieving factors. The symptoms have been associated with painful ROM and decreased ROM. Previous evaluations have been completed by a chiropractor. Note for Shoulder pain: Tingling in fingers on occasion with excessive use. Patient notes a history of rotator cuff repair of the left shoulder surgically in 1990. 03-21-2024 Results Test Name Value Interpretation Reference Range Facility Cardiology Visit Reporton Cardiology Visit Report [facility] [address] [place] [address] OFFICE VISIT Date of Service: 12/03/24 MR#: [id number] Acct: [id number] Name: AMALIA SERVIN Rep #: [id number] : 1965 Provider: SINCERE arizmendi Age/Sex: 59/M Location: [facility] [place] Status: Signed HPI HPI History of Present Illness Details: This is a 59-year-old male who presents to the office today for a posthospital follow-up. He was evaluated [facility] in October 2024 for new onset atrial fibrillation with RVR. He presented to the hospital with palpitations and left arm discomfort. A month prior to presentation he had been noting palpitations. He was noted be in atrial fibrillation with RVR. He converted to sinus rhythm. Echocardiogram showed LV function 55%, moderate concentric LVH, normal left atrial size, normal right atrial size, and pulmonary artery systolic pressure of 28 mmHg. He was discharged on Eliquis and metoprolol tartrate. He acknowledges sharp, midsternal chest discomfort 3-4 times since recent hospitalization. This is considered to be brief. He acknowledges palpitation that he describes as pounding. He acknowledges bilateral lower extremity edema. He acknowledges shortness of breath with activity and orthopnea. He denies shortness of breath at rest, cough, or PND. He denies lightheadedness, dizziness, near- syncope, syncope or weakness. He acknowledges fatigue. Intake Vital Signs 11/07/24 11:00 12/03/24 13:56 Height 5 ft 10 in 5 ft 10 in Weight: 234 lb BMI 33.5 BP 124/79 H Blood Pressure Location Lt brachial Position Sitting Respiration 16 Pulse 60 Pulse Source NIBP Intake Visit Reasons: S/P [facility] 11/07 Grinding Supervisor Required: No Accompanied by: Is patient in pain?: No Allergies Penicillins Allergy (Severe, Verified 12/03/24 14:03) Anaphylaxis Medications ???Medication ???Instructions ???Recorded ???Confirmed ???Type apixaban 5 mg tablet (Eliquis) 5 mg PO BID #60 tabs 12/03/2408/24 Rx ibuprofen 200 mg tablet 400 mg PO ONCE PRN 12/03/24 History metoprolol tartrate 50 mg tablet 50 mg PO BID #180 tabs 12/03/24 Rx Ejection fraction %: 55 Have you fallen in the past year?: [facility] (Updated 12/03/24 @ 14:07 by Pamela Contreras) DDD (degenerative disc disease), cervical Paroxysmal atrial fibrillation Paroxysmal atrial fibrillation with RVR Surgical History (Updated 12/03/24 @ 14:07 by Pamela Contreras) History of right knee surgery History of cholecystectomy History of shoulder surgery Family History (Updated 12/03/24 @ 14:09 by Pamela Contreras) Mother Cancer CHF (congestive heart failure) Grandfather Myocardial infarction Grandmother Heart disease Myocardial infarction CVA (cerebral vascular accident) Sister Cardiomyopathy Social History (Updated 12/03/24 @ 14:10 by Pamela Contreras) Smoking Status: Never smoker Smokeless tobacco user: snuff alcohol intake: current substance use type: does not use caffeine: Yes Type: carbonated beverages Number of servings: 4 ROS Const Const: Positive for fatigue and other (3-4 episodes of flushing); Negative for weakness Eyes Eyes: Negative for change in vision ENT ENT: Negative for dizziness or balance problems Cardio Chest Pain: Yes Frequency: other (3-4 times since discharge) Character: sharp Onset: at rest and other (driving) Location: mid sternal Duration: brief Palpitations: Yes feels like its: pounding Edema: Bilateral Muscle aches with walking: None Resp Respiratory: Positive for SOB with activity and SOB orthopnea SOB lying down; Negative for SOB at rest GI GI: Negative nausea or heartburn : Negative for hematuria or frequent nighttime urination/ nocturia Musc Musc: Negative for balance problems Skin Skin: Negative non-healing lesions or rash Neuro Neuro: Negative for dizziness, lightheadedness, near syncope, syncope or weakness Endo Endo: Positive for fatigue Allergy Allergy/Immunology: Negative for rash Cardiology Exam Const Appearance: cooperative, healthy appearing, comfortable and no acute distress Nutritional Appearance: well nourished and obese Orientation: alert, awake and oriented x3 Head Head: normal to inspection Ears: hearing grossly normal bilaterally Nose: external nose normal Face and Sinus: face symmetric Mouth: moist mucous membranes Eyes General: appearance normal, both eyes and all related structures Eyelids: eyelids normal EOM: EOM intact bilaterally Neck Neck: normal visual inspection and no JVD Carotids: normal carotid upstroke Chest Chest inspection: normal inspection of the chest, symmetric chest movement and normal respiratory effort; Negative cough Auscultation: Bilateral: Clear to Auscultation Cardio (more content not included)... Normal [facility] CERVICAL SP COMPLETE, 4 OR 5 VIEWSon 11-23-2024 CERVICAL SP COMPLETE, 4 OR 5 VIEWS [place] [address] Patient: AMALIA SERVIN Phone#: : 1965 Age: 59 Gender: M Pt. Type: Out Account: [id number] Location: [facility] Ordering: KANG SIDHU Exam Date: 11/23/2024/16:09 Family Phys: Charge Code: 563556 Physician: [place] Order #: [id number] Dose#: PROCEDURE: X-RAY CERVICAL SPINE W/ AP, LATERAL, ODONTOID, AND OLBIQUES VIEWS COMPARISON: None. INDICATIONS: Posterior pain into both shoulders. FINDINGS: BONES: Vertebral bodies are maintained in height and alignment. No subluxation. The visualized portion of the dens is intact. The lateral masses are symmetric. There is osseous foraminal narrowing at C3-4, C4-5, C5-6, C6-7 and C7-T1 DISC SPACES: There is moderate disc height loss at C5-6 and C6-7. There is mild disc height loss at C3-4 and C7-T1. PARASPINOUS: Negative. No paraspinous abnormality is seen. OTHER: Negative. CONCLUSION: 1. Multilevel degenerative changes resulting in multilevel osseous foraminal narrowing Dictated by: Nimisha Vidales MD on 11/23/2024 at 16:41 Approved by: Nimisha Vidales MD on 11/23/2024 at 16:44 Normal [facility] Absolute lymphocyte countOrd ered By: Víctor Villafuerte on 11-07-2024 Lymphocytes Auto (Unsp spec) [#/Vol] 2.95 10*3/uL 0.83-4.51 [facility] Absolute neutrophil countOrd ered By: Víctor Villafuerte on 11-07-2024 Neutrophils (Bld) [#/Vol] 4.0 10*3/uL 2.0-7.7 [facility] Activated partial thrombopla stin time (aPTT) in platelet poor plasma by coagulation aOrdered By: Víctor Villafuerte on 11-07-2024 aPTT Coag (PPP) [Time] 34.1 s 24.1-36.2 [facility] Anion gap in Serum or Plasma Ordered By: Víctor Villafuerte on 11-07-2024 Anion gap [Moles/Vol] 11 mmol/L 5- [facility] Automated lymphocyte count a s percentage of total leukocytesOrdered By: Víctor Villafuerte on 11-07-2024 Lymphocytes/100 WBC Auto (Unsp spec) 38.4 % - [facility] BUN/creatinine ratioOrdered By: Víctor Villafuerte on 11-07-2024 Urea nitrogen/Creatinine [Mass ratio] 18.3 mg/mg 10- [facility] Basic Metabolic Profile (BMP )on 11-07-2024 BUN/CRE 18.3 RATIO Normal - [facility] Comment on above: Performed By: #### L 100.0100, L500.2500 #### [facility] [address] [place], [address] Calcium [Mass/Vol] 9.3 mg/dL Normal 7.6-11.0 [facility] Comment on above: Performed By: #### L 100.0100, L500.2500 #### [facility] [address] [place], [address] Chloride [Moles/Vol] 108 mmol/L Normal 98-108 [facility] Comment on above: Performed By: #### L 100.0100, L500.2500 #### [facility] [address] [place], [address] CO2 [Moles/Vol] 21.8 mmol/L Normal 21.0-32.0 [facility] Comment on above: Performed By: #### L 100.0100, L500.2500 #### [facility] [address] [place], [address] Creatinine [Mass/Vol] 0.86 mg/dL Normal 0.70-1.20 [facility] Comment on above: Performed By: #### L 100.0100, L500.2500 #### [facility] [address] [place], [address] ECRCL 112.40 ml/min Normal 50-250 [facility] Comment on above: Performed By: #### L 100.0100, L500.2500 #### [facility] [address] [place], [address] GAP 11 Normal 5-15 [facility] Comment on above: Performed By: #### L 100.0100, L500.2500 #### [facility] [address] [place], [address] GFR/1.73 sq M.predicted among non-blacks MDRD (S/P/Bld) [Vol rate/Area] 100 mL/min/{1.73_m2} Normal >60 [facility] Comment on above: Result Comment: mL/m in/1.73m2 CKD-EPI Creatinine Equation (2020) Performed By: #### L 100.0100, L500.2500 #### [facility] [address] [place], [address] Glucose [Mass/Vol] 124 mg/dL High 70-99 [facility] Comment on above: Performed By: #### L 100.0100, L500.2500 #### [facility] [address] [place], [address] Potassium [Moles/Vol] 4.0 mmol/L Normal 3.3-5.1 [facility] Comment on above: Performed By: #### L 100.0100, L500.2500 #### [facility] [address] [place], [address] Sodium [Moles/Vol] 140 mmol/L Normal 133-145 [facility] Comment on above: Performed By: #### L 100.0100, L500.2500 #### [facility] [address] [place], [address] Urea nitrogen [Mass/Vol] 16 mg/dL Normal 4-19 [facility] Comment on above: Performed By: #### L 100.0100, L500.2500 #### [facility] [address] [place], [address] Basophil percentageOrdered B y: Víctor Stovallrobbie on 11-07-2024 Basophils/100 WBC (Bld) 1.2 % High 0-1 [facility] CBC W/Diff, Automatedon 07-0 Absolute Lymph 2.95 X10 3/uL Normal 0.83-4.51 [facility] Comment on above: Performed By: #### L 100.0100, L500.2500 #### [facility] [address] [place], [address] Absolute Neut 4.0 X10 3/uL Normal 2.0-7.7 [facility] Comment on above: Performed By: #### L 100.0100, L500.2500 #### [facility] [address] [place], [address] Basophils/100 WBC (Bld) 1.2 % High 0-1 [facility] Comment on above: Performed By: #### L 100.0100, L500.2500 #### [facility] [address] [place], [address] Eosinophils/100 WBC (Bld) 2.0 % Normal 0-5 [facility] Comment on above: Performed By: #### L 100.0100, L500.2500 #### [facility] [address] [place], [address] Erythrocyte distribution width (RBC) [Ratio] 13.2 % Normal 11.6-14.6 [facility] Comment on above: Performed By: #### L 100.0100, L500.2500 #### [facility] [address] [place], [address] Hematocrit (Bld) [Volume fraction] 45.2 % Normal 40-54 [facility] Comment on above: Performed By: #### L 100.0100, L500.2500 #### [facility] [address] [place], [address] Hemoglobin (Bld) [Mass/Vol] 15.3 g/dL Normal 13.0-16.5 [facility] Comment on above: Performed By: #### L 100.0100, L500.2500 #### [facility] [address] [place], [address] IG% 0.300 Normal 0.0-0.9 [facility] Comment on above: Result Comment: IG% - Immature Granulocytes (promyelocytes, myelocytes and metamyelocytes) > 1% indicates that a LEFT SHIFT is Present. Performed By: #### L 100.0100, L500.2500 #### [facility] [address] [place], [address] Lymphocytes/100 WBC (Bld) 38.4 % Normal 19-41 [facility] Comment on above: Performed By: #### L 100.0100, L500.2500 #### [facility] [address] [place], [address] MCH (RBC) [Entitic mass] 31.0 pg Normal 27.0-32.0 [facility] Comment on above: Performed By: #### L 100.0100, L500.2500 #### [facility] [address] [place], [address] MCHC (RBC) [Mass/Vol] 33.8 g/dL Normal 32-36 [facility] Comment on above: Performed By: #### L 100.0100, L500.2500 #### [facility] [address] [place], [address] MCV (RBC) [Entitic vol] 91.7 fL Normal 80-94 [facility] Comment on above: Performed By: #### L 100.0100, L500.2500 #### [facility] [address] [place], [address] Monocytes/100 WBC (Bld) 6.8 % Normal 0-10 [facility] Comment on above: Performed By: #### L 100.0100, L500.2500 #### [facility] [address] [place], [address] Neutrophils/100 WBC (Bld) 51.3 % Normal 47-70 [facility] Comment on above: Performed By: #### L 100.0100, L500.2500 #### [facility] [address] [place], [address] Nucleated RBC (Bld) [#/Vol] 0 10*3/uL Normal 0-5 [facility] Comment on above: Performed By: #### L 100.0100, L500.2500 #### [facility] [address] [place], [address] Platelet mean volume (Bld) [Entitic vol] 11.9 fL Normal 6.2-12.0 [facility] Comment on above: Performed By: #### L 100.0100, L500.2500 #### [facility] [address] [place], [address] Platelets (Bld) [#/Vol] 222 10*3/uL Normal 150-450 [facility] Comment on above: Performed By: #### L 100.0100, L500.2500 #### [facility] [address] [place], [address] RBC (Bld) [#/Vol] 4.93 10*6/uL Normal 4.6-6.2 [facility] Comment on above: Performed By: #### L 100.0100, L500.2500 #### [facility] [address] [place], [address] RDW SD 44.6 fl High 35.1-43.9 [facility] Comment on above: Performed By: #### L 100.0100, L500.2500 #### [facility] [address] [place], [address] WBC (Bld) [#/Vol] 7.7 10*3/uL Normal 4.4-11.0 [facility] Comment on above: Performed By: #### L 100.0100, L500.2500 #### [facility] [address] [place], [address] Carbon dioxide, total [Moles /volume] in Central venous bloodOrdered By: Víctor Villafuerte on 11-07-2024 CO2 [Moles/Vol] 21.8 mmol/L 21.0-32.0 [facility] Chloride assayOrdered By: Willy Villafuerte on 11-07-2024 Chloride [Moles/Vol] 108 mmol/L 98-108 [facility] Consultation - Cardiologyon 11-07-2024 Consultation - Cardiology [facility] Medical Records Department [address] [place] [address] Consultation - Cardiology 11/07/24 0730 MR#: [id number] Acct: [id number] Name: AMALIA SERVIN Rep #: [id number] : 1965 59 From: Mickey Jones MD PCP: Dr. Dinh Hennessy MD Status:ADM IN Location: [place] [address]-1 Assessment Plan Assessment/Plan (1) Paroxysmal atrial fibrillation with RVR: PLAN: Patient presents with his second episode of atrial fibrillation with rapid ventricular response rate. He was put on intravenous heparin as well as intravenous diltiazem and his rate is better controlled at this time. Recommendation will be to obtain an echocardiogram to assess his ventricular function Transition him to p.o. Eliquis Transition him to p.o. metoprolol and depending on what happens to his rate further recommendations will be made as well as the results of the echocardiogram. Above has been explained to him. At some point he may need interval cardioversion or chance that an ablation. HPI Consult Data Date of Consult: 11/07/24 HPI Narrative HPI Narrative: AMALIA SERVIN, is a 59 M who presents to the emergency room with palpitations and left arm discomfort. He says that he was fine until approximately a month ago when he started experiencing some palpitations as well as left arm discomfort. He waited for a few hours and this resolved and dissipated. He subsequently had another episode yesterday and so decided to present to the emergency room. In the emergency room he was noted to be in atrial fibrillation with a rapid ventricular response rate he was transferred [place] here. [facility] Home Medications ???Medication ???Instructions ???Recorded ???Last Taken ???Type NK 11/07/24 Unknown History Allergy/AdvReac Type Severity Reaction Status Date / Time Penicillins Allergy Severe Anaphylaxis Verified 11/07/24 04:07 Social History Smoking Status: Never smoker ROS Constitutional Constitutional: Denies fever(s) or weight loss Eyes Eyes: Reports systems reviewed and no addt'l complaints, except as documented ENT HEENT: Reports systems reviewed and no addt'l complaints, except as documented Cardiovascular Cardiovascular: Reports chest pain at rest, dyspnea at rest and palpitations; Denies chest pain with activity, dyspnea on exertion, edema or paroxysmal nocturnal dyspnea Respiratory/Chest Respiratory/Chest: Denies dyspnea on exertion, productive cough, shortness of breath at rest or shortness of breath with exertion Gastrointestinal Gastrointestinal: Denies change in bowel habits, nausea, vomiting or weight changes Genitourinary Genitourinary: Denies difficulty urinating Musculoskeletal Musculoskeletal: Denies joint stiffness or muscle weakness Integumentary Integumentary: Denies lesions Neurologic Neurologic: Denies dizziness or syncope Psychiatric Psychiatric: Denies anxiety Endocrine Endocrinology: Denies excessive sweating or fatigue Hematologic/Lymphati c Hematologic/Lymphati c: Denies anemia Allergic/Immunologic Allergic/Immunologic : Denies seasonal rhinorrhea Physical Exam Const alert, oriented x3 and no apparent distress General Appearance: cooperative HEENT hearing grossly normal bilaterally Head and Scalp: atraumatic Eyes EOMs intact bilaterally Neck General: normal visual inspection Chest inspection of chest normal and palpation of chest normal Resp normal respiratory effort Auscultation: clear to auscultation bilaterally Cardio S1 normal heart sound and S2 normal heart sound Jugular Venous Distention: JVD Rhythm: abnormal rhythm irregularly irregular GI normal to inspection, nondistended, normoactive bowel sounds Extremity normal capillary refill and no pedal edema Peripheral Pulses: Yes pulses 2+ throughout and femoral pulses present Skin no rashes or lesions noted Neuro oriented x3 and CN's II-XII intact bilaterally Psych Appearance: grossly normal and appropriate Risk Stratification Risk Stratification Applicable: No Objective Data Vital Signs: Vital Signs Temp Pulse Resp BP Pulse Ox O2 Del Method 98.2 F 88 25 H 102/73 97 Room Air 11/07/24 04:30 11/07/24 06:00 11/07/24 06:00 11/07/24 06:00 11/07/24 06:00 11/07/24 06:00 Oxygen Delivery Method Room Air Weight: 232 lb 2.348 oz Body Mass Index (BMI) 33.3 Intake Output: Intake and Output for Last 24 Hours 11/05/24 11/06/24 11/07/24 23:59 23:59 23:59 Intake Total 35.67 / 35.67 Balance 35.67 / 35.67 Lab / Micro Data 11/07/24 04:25 11/07/24 04:25 Labs: Laboratory Results - last 24 hr 11/07/24 04:25: WBC 7.7, RBC 4.93, Hgb 15.3, Hct 45.2, MCV 91.7, MCH 31.0, MCHC 33.8, RDW Std Deviation 44.6 H, RDW Coeff of Tiffanie 13.2, Plt Count 222, MPV 11.9, Immatu (more content not included)... Normal [facility] ED MED ADMINISTRATION DETAIL on 11-07-2024 ED MED ADMINISTRATION DETAIL [employer] Medication Administration Record [place] [address] [place] [address] [phone] 11/06/2024 Patient: AMALIA SERVIN Sex: Male : 1965 Age: 59y MEASUREMENTS: Wt: 106.6 kg, Ht/Kedar: 70.0 in, BMI: 33.72 ALLERGIES: Penicillins Medication Ordered Medication Administration Date/Time Diltiazem 22:46 11/06 Diltiazem (Cardizem) IVP 15 mg given via Site# 1. Given (Cardizem) IVP 15 Allergies verified and confirmed 5 rights. IV patency established. IV 22:46 11/06/2024 mg (NOW x1, HIGH site checked: no pain, redness, or swelling. IV flushed thoroughly Char Encarnacion R.N. ALERT pre-medication administration. Information reviewed with patient Scanned MEDICATION) and spouse including reason for taking this medication, signs of allergic reaction and precautions. Verbalizes understanding. Medication Wastage: 10 mg wasted. - 22:47 Char Encarnacion R.N. 22:46 07 Medication Co-sign: Verified dosage, concentration and rate. - 22:47 Andreea Holbrook R.N. 1 of 4 [employer] Medication Ordered Medication Administration Date/Time Diltiazem 22:47 11/06 Diltiazem (Cardizem) Drip IV 125mg/100ml NS 125 Started (Cardizem) Drip IV mg started in bag#1 100 mL at 5 mg/hr diluted in sodium chloride 22:47 11/06/2024 125mg/100ml NS IVPB 0.9 % 100 mL via Site# 1. Allergies verified and confirmed 5 Char Encarnacion R.N. 125 mg diluted in rights. Via IV pump. IV patency established. IV site checked: no Scanned sodium chloride pain, redness, or swelling. IV flushed thoroughly pre-medication IVPB 0.9 % 100 mL administration. Information reviewed with patient. Verbalizes at 5 mg/hr (NOW x1, understanding. - 22:53 Char Encarnacion R.N. HIGH ALERT MEDICATION, and 22:47 11/06 Medication Co-sign: Verified dosage, concentration then titrate per and rate. - 22:53 Andreea Holbrook R.N. protocol, After IV Admixture Total 23:07 11/06 Medication Rate Changed: bag #1 increased to 10 Volume = 125ml) mg/hr via IV pump. Confirmed 5 Rights. IV patency established. IV site checked: no pain, redness, or swelling. (Verified rate change with ARTEMIO Doran.) - 23: Char Encarnacion R.N. 02:53 11/07 Medication Continued: at the rate of 10 mg/hr. 100 mL remaining in bag #1. IV patency established. IV site checked: no pain, redness, or swelling. - 03:03 Ade Cordero R.N. IV NS 0.9 % 1000 22:11/06 IV NS 0.9 % 1000 mL started in bag#1 1000 mL at Started mL at 999 mL/hr 999 mL/hr via Site# 1. Allergies verified and confirmed 5 rights. IV 22:53 11/06/2024 (NOW x1) patency established. IV site checked: no pain, redness, or swelling. Char Encarnacion R.N. IV flushed thoroughly pre-medication administration. Information Stopped reviewed with patient including reason for taking this medication, 02:55 11/07/2024 signs of allergic reaction and precautions. Verbalizes Ade Cordero R.N. understanding. - :53 Char Encarnacion R.N. Scanned :11/07 Medication Discontinued: bag #1 infused. Total amount infused: 1000 mL. IV patency established. IV site checked: no pain, redness, or swelling. IV flushed thoroughly post-medication administration. - 03:05 Ade Cordero R.N. 2 of 4 [employer] Medication Ordered Medication Administration Date/Time Heparin IVP 4000 00:11/07 Heparin IVP 4000 unit given over 1 minute(s) via Site# Given unit (NOW x1, Refer 2. Allergies verified and confirmed 5 rights. IV patency established. 00:38 11/07/2024 to Heparin IV site checked: no pain, redness, or swelling. IV flushed thoroughly Ade Cordero R.N. Nomogram for pre-medication administration. Information reviewed with patient Scanned Dosing/Titration, including reason for taking this medication. Verbalizes HIGH ALERT understanding. Medication Wastage: 1000 unit wasted. - 00:40 MEDICATION, Ade Cordero R.N. Round to nearest 50-100 units) 00:38 07/09 Medication Co-sign: Verified dosage, concentration and rate. - 00:40 Andreea Holbrook R.N. Order Comments: 00:18 11/07/2024 (Cardiac Max dose 4000 units DVT/PE Max dose 8750 units) Sanju Colon D.O. 3 of 4 [employer] Medication Ordered Medication Administration Date/Time Heparin Drip IV 00:40 07 Heparin Drip IV Started (CARDIAC) (CARDIAC) 43842btzdk/250ml 00:40 11/07/2024 25779iufyp/250ml Premix 58812 unit started in Ade Cordero R.N. Premix 71726 unit bag#1 250 mL at 1000 unit/hr Scanned at 1000 unit/hr over 1 hour(s) via Site# 2. (refer to heparin Allergies verified and confirmed nomogram/titration, 5 rights. Via IV pump. IV patency HIGH ALERT established. IV site checked: no MEDICATION, NOW pain, redness, or swelling. IV x1) flushed thoroughly pre-medication administration. Information reviewed with patient. Verbalizes understanding. - 00:44 Ade Cordero R.N. 00:40 07 Medication Co-sign: Verified dosage, concentration and rate. - 00:44 Andreea Proctor (more content not included)... Normal [facility] ED NURSES CLINICAL NOTEon ED NURSES CLINICAL NOTE Nurse Narrative Nurse Clinical Narrative [address] [address] [phone] 11/06/2024 22:23:00 Patient: AMALIA SERVIN Sex: Male : 1965 Age: 59y Disposition: Transfer to [facility] Disposition Decision Time: 02:53 11/07/2024 Departure Time: 03:01 11/07/2024 TRIAGE Arrived by private vehicle. Historian: (patient). Accompanied by family. Primary physician ([facility]). Triage time: 22:11/06/2024. Acuity: LEVEL 2. Chief Complaint: CHEST DISCOMFORT. Onset. (30 minutes ago). SEPSIS SCREEN: NEGATIVE. SIRS criteria negative: heart rate greater than 90. -- 22:38 11/06/24 EDT Andreea Holbrook R.N. 22:37 11/06/24. BP: 117/95 MAP: 102. HR: 178. RR: 18. O2 saturation: 98% Temperature: 98.1 F. Winona Coma Scale: 15 - eyes open - spontaneous (4); best verbal response - oriented (5); best motor response - obeys commands (6). -- 22:37 11/06/24 EDT Andreea Holbrook R.N. 22:42 11/06/24. Pain level now 5/10. -- 22:57 11/06/24 EDT Andreea Holbrook R.N. Measurements: 22:38 11/06/24 Wt: 106.6 kg, Ht/Kedar: 70.0 in, BMI: 33.72 -- 22:38 11/06/24 EDT Andreea Holbrook R.N. Medications: no known home medications -- 22:36 11/06/24 EDT Andreea Holbrook R.N. 1 of 5 Nurse Narrative 22:11/06/24. Preferred Pharmacy: ; [facility]). -- 22:38 11/06/24 EDT Andreea Holbrook R.N. Allergies: Penicillins -- 22:35 11/06/24 EDT Andreea Holbrook R.N. Problems: no known problem -- 22:35 11/06/24 EDT Andreea Holborok R.N. Surgeries: Cholecystectomy -- 22:36 11/06/24 EDT Andreea Holbrook R.N. Shoulder Surgery -- 22:36 11/06/24 EDT Andreea Holbrook R.N. Knee Surgery -- 22:36 11/06/24 EDT Andreea Holbrook R.N. History 22:29 11/06/24. SOCIAL HX: Never smoker. No alcohol use or drug use. The patient has not traveled outside the [place] Infectious disease exposure: No infectious disease exposure. ABUSE ASSESSMENT: The patient answered yes to the question(s) Do you feel safe in your home? and no to the question(s) Are you afraid to go home?. Abuse denied. SELF HARM ASSESSMENT: Self harm assessment was performed. The patient answered no to the question(s) Have you recently felt down, depressed, or hopeless? and Do you have thoughts of harming or killing yourself?. FALL RISK ASSESSMENT: Fall risk assessment completed. No risk factors identified. -- 22:38 11/06/24 EDT Andreea Holbrook R.N. Interventions 22:29 11/06/24. Advanced care plan discussed with patient. Patient does not have advanced directive. -- 22:38 11/06/24 EDT Andreea Holbrook R.N. 2 of 5 Nurse Narrative PHYSICAL ASSESSMENT 23:33 11/06/24. GENERAL / NEURO / PSYCH: Alert. Oriented X 4. ( chest pressure 5/10 , started 1 hour BILLING CLINICIAN). HEENT: Mucous membranes are pink. RESPIRATORY: Respirations not labored. Chest nontender. Breath sounds within normal limits. CVS: Normal sinus rhythm noted. Cardiac rhythm: atrial fibrillation. Pulses within normal limits. Capillary refill less than 2 seconds. GI / : Abdomen soft and nontender. EXTREMITIES: No lower extremity edema. SKIN: Skin is warm and dry. Normal skin turgor. Skin is non-tender. -- 23:48 11/06/24 EDT Ade Cordero R.N. NURSING PROGRESS NOTES 22:35 11/06/24. Site #1 started in the right antecubital space with an 18g angiocath with aseptic technique and good blood return; 1 attempt. Blood drawn: rainbow set tube(s). Saline lock flushed with 5 mL saline. -- 22:46 11/06/24 EDT Char Encarnacion R.N. 22:45 11/06/24. 12-LEAD EKG: EKG time: (22:24 11/06/2024). 12-Lead EKG was performed by me and shown to the ED physician. -- 22:47 11/06/24 EDT Shari Garza 22:46 11/06/24. Diltiazem (Cardizem) IVP 15 mg given via Site# 1. Allergies verified and confirmed 5 rights. IV patency established. IV site checked: no pain, redness, or swelling. IV flushed thoroughly pre-medication administration. Information reviewed with patient and spouse including reason for taking this medication, signs of allergic reaction and precautions. Verbalizes understanding. Medication Wastage: 10 mg wasted. -- 22:47 11/06/24 EDT Char Encarnacion R.N. 22:46 11/06/24. Diltiazem (Cardizem) IVP: Medication Co-sign. Verified dosage, concentration and rate. -- 22:47 11/06/24 EDT Andreea Holbrook R.N. 22:47 11/06/24. Diltiazem (Cardizem) Drip IV 125mg/100ml NS 125 mg started in bag#1 100 mL at 5 mg/hr diluted in sodium chloride IVPB 0.9 % 100 mL via Site# 1. Allergies verified and confirmed 5 rights. Via IV pump. IV patency established. IV site checked: no pain, redness, or swelling. IV flushed thoroughly pre-medication administration. Information reviewed with patient. Verbalizes understanding. -- 22:53 11/06/24 EDT Char Encarnacion R.N. 22:47 11/06/24. Diltiazem (Cardizem) Drip IV 125mg/100ml NS: Medication Co-sign. Verified (more content not included)... [facility] ED ORDER SHEET (CPOE ONLY)on 11-07-2024 ED ORDER SHEET (CPOE ONLY) Order Sheet Order Sheet [address] [place] [address] [id number] 11/06/2024 Patient: AMALIA SERVIN Sex: Male : 1965 Age: 59y MEASUREMENTS: Wt: 106.6 kg, Ht/Kedar: 70.0 in, BMI: 33.72 ALLERGIES: Penicillins MEDICATION/IV/DRIP/F LUID ORDERS Order Description Priority Entered Acknowledged Completed Diltiazem (Cardizem) IVP15 mg 22:36 11/06/2024 22:47 (NOW x1, HIGH ALERT Sanju Colon D.O. 11/06/2024 MEDICATION) Char Encarnacion R.N. Diltiazem (Cardizem) Drip IV 22:36 11/06/2024 22:53 125mg/100ml NS125 mg diluted Sanju Colon D.O. 11/06/2024 in sodium chloride IVPB 0.9 % Char Encarnacion, 100 mL at 5 mg/hr (NOW x1, R.N. HIGH ALERT MEDICATION, and then titrate per protocol, After IV Admixture Total Volume = 125ml) IV NS 0.9 %1000 mL at 999 22:37 11/06/2024 22:53 mL/hr (NOW x1) Sanju Colon D.O. 11/06/2024 Char Encarnacion R.N. Reason for ordering with alerts: Clinical consideration given --22:37 11/06/2024 Sanju Colon D.O. Heparin [id number] unit (NOW x1, 00:18 11/07/2024 00:40 1 of 4 Order Sheet Refer to Heparin Nomogram for Sanju Colon D.O. 11/07/2024 Dosing/Titration, HIGH ALERT Ade Cordero R.N. MEDICATION, Round to nearest 50-100 units) Order Comments: 00:18 11/07/2024: (Cardiac Max dose 4000 units DVT/PE Max dose 8750 units) Sanju Colon D.O. Heparin Drip IV (CARDIAC) 00:18 11/07/2024 00:44 23843ydxse/250ml [id number] Sanju Colon D.O. 11/07/2024 unit at 1000 unit/hr (refer to Ade Cordero R.N. heparin nomogram/titration, HIGH ALERT MEDICATION, NOW x1) Order Comments: 00:18 11/07/2024: (Max initial rate 1000 units/hr Round to nearest 50-100 units) Sanju Colon D.O. LAB ORDERS Order Description Priority Entered Acknowledged Collected Completed CBC w Diff Stat Stat 22:35 11/06/2024 22:44 11/06/2024 23:27 11/06/2024 Alexa Borrero Alisha Whytsell, R.N. R.NKatrina BNP Stat Stat 22:35 11/06/2024 22:44 11/06/2024 23:27 11/06/2024 Alexa Borrero Alisha Whytsell, R.N. R.N. CMP Stat Stat 22:35 11/06/2024 22:44 11/06/2024 23:27 11/06/2024 Alexa Borrero Alisha Whytsell, R.N. RKatrinaN. PT with INR Stat Stat 22:35 11/06/2024 22:44 11/06/2024 23:27 11/06/2024 Alexa Borrero Alisha Whytsell, R.N. R.N. PTT Stat Stat 22:35 11/06/2024 22:44 11/06/2024 23:27 11/06/2024 Alexa Borrero Alisha Whytsell, R.N. R.NKatrina D-Dimer Stat Stat 22:35 11/06/2024 22:44 11/06/2024 23:27 11/06/2024 Alexa Borrero Alisha Whytsell, R.N. RKatrinaNKatrina 2 of 4 Order Sheet EKG - ED Stat Stat 22:35 11/06/2024 23:11 11/06/2024 23:27 11/06/2024 Sanju Colon D.O. Andreea He R.N. R.N. Troponin-I Protocol Stat 22:35 11/06/2024 22:44 11/06/2024 23:27 11/06/2024 (STAT 1hr) (Sched: q1h Sanju Colon D.O. Andreea Navarro, X2); Stat 1 of 2 R.N. R.N. Troponin-I Protocol Stat 22:35 11/06/2024 23:48 11/06/2024 23:48 11/06/2024 (STAT 1hr) (Sched: q1h Alexa Borrero R.N. Anne Rutt, R.N. X2); Stat 2 of 2 TSH Stat Stat 22:53 11/06/2024 23:21 11/06/2024 23:48 11/06/2024 Alexa Borrero Anne Rutt, R.NKatrina R.Duncan DIAGNOSTIC STUDY ORDERS Order Description Priority Entered Acknowledged Completed Chest 1V Stat Stat 22:35 11/06/2024 22:44 23:48 Sanju Colon D.O. 11/06/2024 11/06/2024 Ade Navarro R.N. R.NKatrina Reason for Study: Chest Pain STAFF ORDERS Order Description Priority Entered Acknowledged Collected Completed Vital signs every 15 22:35 11/06/2024 22:44 11/06/2024 23:48 11/06/2024 minutes Alexa Borrero Anne Rutt, R.N. R.NKatrina Wheel Aligner 22:35 11/06/2024 22:44 11/06/2024 23:27 11/06/2024 Alexa Borrero Alisha Whytsell, R.N. R.N. Oxygen titrate to 92% 22:35 11/06/2024 22:44 11/06/2024 23:27 11/06/2024 Alexa Borrero Alisha Whytsell, 3 of 4 Order Sheet R.N. R.N. Obtain Old EKG 22:35 11/06/2024 Cancelled: Unable to Collect Sanju Colon D.O. 23:51 EDT Ade Cordero R.N. Repeat EKG in 45 Min 22:35 11/06/2024 00:44 11/07/2024 Alexa Borrero R.N. [Electronically signed by Sanju Colon D.O. (11/07/2024 03:07 EDT)] 4 of 4 [facility] ED PHYSICIAN CLINICAL REPORT on 11-07-2024 ED PHYSICIAN CLINICAL REPORT Narrative Physician Clinical Narrative [facility] [address] [place] [address] [id number] 11/06/2024 22:23:00 Patient: AMALIA SERVIN Sex: Male : 1965 Age: 59y Disposition: Transfer to [facility] Disposition Decision Time: 02:53 11/07/2024 Departure Time: 03:01 11/07/2024 Measurements Wt: 106.6 kg, Ht/Kedar: 70.0 in, BMI: 33.72 Initial Vital Sign Measured Time BP MAP HR RR O2Sat ETCO2 Temp Pain GCS RTS 22:37 11/06/2024 117/95 102 178 18 98% 98.1 F 15 Time Seen: 22:24 11/06/2024. Arrived- By private vehicle. Historian- patient. Independent historian- family. HISTORY OF PRESENT ILLNESS Chief Complaint: CHEST PAIN. It is described as burning and it is described as located in the central chest area and radiating to the left arm. This started today and is still present. At its maximum, severity described as 3 / 10. When seen in the E.D., severity described as 2 / 10. No nausea, vomiting, difficulty breathing or diaphoresis. Similar symptoms previously. Patient has had similar symptoms once. ( Had similar episode 1-1/2 months ago that occurred mL of the night. Patient laid down and when he woke up in the morning symptoms were gone he went to work. Did not seek medical treatment.). Recent medical care: Not recently seen/assessed. REVIEW OF SYSTEMS of 13 Narrative GI: No abdominal pain or black stools. ENDO/HEME/LYMPH: No enlarged lymph nodes. THROAT: No sore throat. NEUROLOGICAL: No fainting episodes or headache. CVS: No pedal edema or calf pain. RESPIRATORY: No cough. CONSTITUTIONAL: No fever or chills. MUSCULOSKELETAL: No joint pain. SKIN: No skin rash. EYES: No blurred vision. PAST HISTORY See nurses notes. no known problem Surgeries: Cholecystectomy Knee Surgery Shoulder Surgery Medications: no known home medications Allergies: Penicillins SOCIAL HISTORY Never smoker. No alcohol use or drug use. ADDITIONAL NOTES The nursing notes have been reviewed. PHYSICAL EXAM Appearance: Alert. Oriented X3. No acute distress. Eyes: Pupils equal, round and reactive to light. ENT: Nose normal. Pharynx normal. Neck: Normal inspection. Neck supple. CVS: Tachycardia. Abnormal rhythm, which is irregularly irregular. Pulses normal. Respiratory: No respiratory distress. Breath sounds normal. Chest nontender. Abdomen: Soft and nontender. Bowel sounds normal. 2 of 13 Narrative Skin: Skin warm and dry. No rash. Extremities: Extremities exhibit normal ROM. No lower extremity edema. Neuro: Oriented X 3. No motor deficit. No sensory deficit. LABS, X-RAYS, AND EKG 12-LEAD EKG: EKG time: 22:24 11/06/2024. Atrial fibrillation (narrow-complex) (172 ventricular rate). The study has been interpreted contemporaneously by me. The EKG appears to be a good tracing. Interpretation time: 22:25 11/06/2024. 12-LEAD EKG #2: EKG time: 00:26 11/07/2024. Atrial fibrillation (narrow-complex) (98 ventricular rate). Left axis deviation. Non-specific ST segment / T wave abnormalities. The study has been interpreted contemporaneously by me. The EKG appears to be a good tracing. Interpretation time: 00:27 11/07/2024. Chest X-ray: No acute disease. Views: PA. Technique: good. The X-rays were independently viewed by me. Interpretation time: 00:13 11/07/2024. Laboratory Tests: APTT Final PACHECO: 11/06/2024 22:26:00 EDT MsgRcvd: 11/06/2024 23:09 EDT Lab Test Result Reference Status Received Comments 11/06/2024 23:09 PTT 32.3 sec 25.4 - 38.4 Final EDT CBC + DIFF Final PACHECO: 11/06/2024 22:26:00 EDT MsgRcvd: 11/06/2024 22:58 EDT Lab Test Result Reference Status Received Comments 11/06/2024 22:58 CBC-COMPLETE CBC + DIFF Final EDT BLOOD COUNT 11/06/2024 22:58 WBC 9.5 x 10/UL 4.5 - 10.8 Final EDT 11/06/2024 22:58 RBC 5.63 x 10/UL 4.50 - 6.00 Final EDT 3 of 13 Narrative Lab Test Result Reference Status Received Comments 11/06/2024 22:58 HEMOGLOBIN 17.2 g/dl 13.0 - 17.5 Final EDT 11/06/2024 22:58 HEMATOCRIT 50.8 % 40.0 - 52.0 Final EDT 11/06/2024 22:58 MCV 90 fl 81 - 98 Final EDT 11/06/2024 22:58 MCH 31 pg 27 - 33 Final EDT 11/06/2024 22:58 MCHC 34 X10 3 32 - 36 Final EDT 11/06/2024 22:58 RDW/CV 13.3 % 12.0 - 15.6 Final EDT 11/06/2024 22:58 PLATELET 263 x10/UL 150 - 450 Final EDT 11/06/2024 22:58 AUTOMATED MPV 9.2 fl 6.4 - 10.5 Final EDT DIFFERENTIAL 11/06/2024 22:58 NEUT % 51.1 % 46.0 - 76.0 Final EDT 11/06/2024 22:58 LYMPH % 38.9 % 20.0 - 45.0 Final EDT 11/06/2024 22:58 MONOS % 7.5 % 0.0 - 10.0 Final EDT 11/06/2024 22:58 EO % 2.2 % 0.0 - 7.0 Final EDT 11/06/2024 22:58 BASO % 0.4 % 0.0 - 2.0 Final EDT 4 of 13 Narrative Lab Test Result Reference Status Received Comments 3.68 x10/UL 0 (more content not included)... [facility] ED SUPER BILLon 11-07-2024 ED [facility] BILL [place] [id number] [facility] [place] [address] [phone] 11/06/2024 Patient: AMALIA SERVIN Sex: Male : 1965 Age: 59y Facility Professional Category Item Description Code Code Quantity Fee Total Drugs Normal Saline 789841 1 $0.00 $0.00 1000cc (801103) Nurse/E/M EMERGENCY 679271 1 $0.00 $0.00 DEPT VISIT HIGH SEVERITYNCJ (03277-69) Nurse/IV/IM/Infusion s Drip/IVPB 233755 4 $0.00 $0.00 additional hour (73472) Nurse/IV/IM/Infusion s Drip/IVPB initial 528372 2 $0.00 $0.00 (03487) Nurse/IV/IM/Infusion s IVP additional 542147 2 $0.00 $0.00 push (46307) Grand $0.00 Total Providers Sanju Colon D.O. 1 of 2 Superbil Chief Complaint CHEST PAIN. Principal Diagnosis Chest pain characterized as discomfort. New onset atrial fibrillation with uncontrolled rate. ICD-10 Codes I48.91: Unspecified atrial fibrillation R07.89: Other chest pain 2 of 2 [facility] ED VISIT SUMMARYon ED VISIT SUMMARY Visit Overview Visit Overview [place] [id number] [place] [address] [phone] 11/06/2024 Patient: AMALIA SERVIN Sex: Male : 1965 Age: 59y 11/07/2024 03:07 AM EDT ED Arrival:22:23 11/06/2024 EDT Status: Recent Travel:no Language:eng Adv Directive:No Isolation Status: Ethnicity:N Fall Risk:no risk Infectious Disease Exposure:no Measurements:5'10 / 177.8 Self-Harm Status:risk Sepsis Screen:negative cm 235.0 lb / 106.6 kg Chief Complaint:CHEST DISCOMFORT, (30 minutes ago), and ([facility]) ALLERGIES Penicillins HOME MEDICATIONS None PAST MEDICAL HISTORY / PROBLEMS None See nurses notes 1 of 3 Visit Overview PAST SURGICAL HISTORY Cholecystectomy Knee Surgery Shoulder Surgery SOCIAL HISTORY Smoking status: No Alcohol use: No Drug use: No ED COURSE MEDICATIONS GIVEN IN EMERGENCY DEPARTMENT 22:46 11/06/24 Diltiazem (Cardizem) IVP 15 mg Diltiazem (Cardizem) Drip IV 125mg/100ml NS 125 mg diluted in sodium chloride IVPB 22:47 11/06/24 0.9 % 100 mL 5 mg/hr 22:53 11/06/24 IV NS 0.9 % 1000 mL 999 mL/hr 00:38 11/07/24 Heparin IVP 4000 unit over 1 minute(s) Heparin Drip IV (CARDIAC) 63882gyysz/250ml Premix 49906 unit 1000 unit/hr over 1 00:40 11/07/24 hour(s) IV SITE INFORMATION 22:35 11/06/24 Site #1 right AC, 18g. Saline lock. 23:24 11/06/24 Site #2 left forearm, 20g. Saline lock. INTAKE OUTPUT REASSESMENT (most recent) 23:33 11/06/24. GENERAL / NEURO / PSYCH: Alert. Oriented X 4. ( chest pressure 5/10 , started 1 hour BILLING CLINICIAN). HEENT: Mucous membranes are pink. RESPIRATORY: Respirations not labored. Chest nontender. Breath sounds within normal limits. CVS: Normal sinus rhythm noted. Cardiac rhythm: atrial fibrillation. Pulses within normal limits. Capillary refill less than 2 seconds. GI / : Abdomen soft and nontender. EXTREMITIES: No lower extremity edema. SKIN: Skin is warm and dry. Normal skin turgor. Skin is non-tender. 2 of 3 Visit Overview VITAL SIGNS First Vitals Last Vitals Temp 22:37 11/06/24 98.1 F Temp 02:50 11/07/24 BP 22:37 11/06/24 117/95 BP 02:50 11/07/24 HR 22:37 11/06/24 178 HR 02:50 11/07/24 97 RR 22:37 11/06/24 18 RR 02:50 11/07/24 O2 Sat 22:37 11/06/24 98% O2 Sat 02:50 11/07/24 95% Pain 22:37 11/06/24 Pain 02:50 11/07/24 ETCO2 22:37 11/06/24 ETCO2 02:50 11/07/24 GCS 22:37 11/06/24 15 GCS 02:50 11/07/24 RTS 22:37 11/06/24 RTS 02:50 11/07/24 PROCEDURES NURSING INTERVENTIONS LABS / STUDIES LABS / STUDIES ORDERED BNP CBC w Diff Chest 1V CMP D-Dimer EKG - ED PT with INR PTT Troponin-I Protocol (STAT 1hr) Troponin-I Protocol (STAT 1hr) TSH CLINICAL IMPRESSION CHEST PAIN CHARACTERIZED DISCOMFORT NEW ONSET ATRIAL FIBRILLATION WITH UNCONTROLLED RATE 3 of 3 [facility] ED VITALS FLOW SHEETon 11-07 ED VITALS FLOW SHEET Vitals Vital Sign Flow Sheet [facility] [address] [place] [address] [id number] 11/06/2024 [id number] Sex: Male : 1965 Age: 59y Measurements Wt: 106.6 kg, Ht/Kedar: 70.0 in, BMI: 33.72 Measured Time BP MAP HR RR O2Sat ETCO2 Temp Pain GCS RTS 02:50 11/07/2024 97 95% 02:45 11/07/2024 81 95% 02:40 11/07/2024 92 96% 02:35 11/07/2024 76 96% 02:11/07/2024 76 97% 02:11/07/2024 121/75 89 69 02:11/07/2024 78 96% 02:11/07/2024 79 96% 02:11/07/2024 80 96% 02:11/07/2024 112/82 89 82 02:11/07/2024 74 95% 02:05 11/07/2024 77 95% 02:00 11/07/2024 104 93% 01:57 11/07/2024 107/75 84 80 01:55 11/07/2024 79 95% 1 of 3 Vitals Measured Time BP MAP HR RR O2Sat ETCO2 Temp Pain GCS RTS 01:50 11/07/2024 78 96% 01:45 11/07/2024 80 95% 01:42 11/07/2024 112/78 86 87 01:40 11/07/2024 111 94% 01:35 11/07/2024 96 94% 01:30 11/07/2024 85 93% 01:11/07/2024 101/70 76 72 01:11/07/2024 76 93% 01:11/07/2024 84 94% 01:11/07/2024 75 93% 01:11/07/2024 107/72 78 100 01:10 11/07/2024 80 95% 01:05 11/07/2024 85 96% 01:00 11/07/2024 87 94% 00:57 11/07/2024 107/62 69 87 00:55 11/07/2024 85 94% 00:50 11/07/2024 91 96% 00:45 11/07/2024 85 97% 00:42 11/07/2024 101/71 79 84 00:30 11/07/2024 94 94% 00:27 11/07/2024 126/73 80 85 00:25 11/07/2024 83 95% 00:20 11/07/2024 79 92% 00:15 11/07/2024 85 95% 00:12 11/07/2024 115/70 85 83 2 of 3 Vitals Measured Time BP MAP HR RR O2Sat ETCO2 Temp Pain GCS RTS 00:10 11/07/2024 94 93% 00:05 11/07/2024 78 93% 00:00 11/07/2024 98 96% 23:57 11/06/2024 120/78 92 89 23:55 11/06/2024 90 95% 23:50 11/06/2024 87 96% 23:45 11/06/2024 83 97% 23:43 11/06/2024 109/72 80 78 23:40 11/06/2024 81 96% 23:35 11/06/2024 118 94% 23:30 11/06/2024 87 92% 23:27 11/06/2024 124/69 86 80 23:25 11/06/2024 94 93% 23:20 11/06/2024 102 94% 23:15 11/06/2024 72 94% 22:42 11/06/2024 5 22:37 11/06/2024 117/95 102 178 18 98% 98.1 F 15 3 of 3 [facility] Echo Completeon 11-07-2024 Echo Complete [facility] [address] [facility] [place] [address] Echo Complete 11/07/24922 MR#: [id number] Acct: [id number] Name: AMALIA SERVIN Rep #: [id number] : 1965 59 From: Mickey Jones MD Attending Dr: Dr. Aurelio Raines, DO Status: ADM IN Ordering Dr: Mickey Jones MD Date: 11/07/24 Location: U Sex: M C Admitted: 11/07/24 Reason For Study Reason For Study: Arrhythmia Procedure This was a 2D Doppler, Color Flow transthoracic echocardiogram. Exam performed in department. Left Ventricle Normal LV size. Moderate concentric left ventricular hypertrophy. Left ventricular systolic function is normal. The left ventricular ejection fraction is 55 %. No regional wall motion abnormalities noted. Right Ventricle Normal RV size. Normal systolic function. Atria Normal left atrium. Normal right atrium. Mitral Valve Normal mitral valve. Tricuspid Valve Normal tricuspid valve. Mild tricuspid valve insufficiency. Pulmonary artery systolic pressure is 28 mmHg. Aortic Valve Trisinus/trileaflet aortic valve. Pulmonic Valve Normal pulmonic valve. Great Vessels Mildly dilated aortic root. The pulmonary artery is normal size. Inferior vena cava collapse with respiration. Pericardium/Pleural No pericardial effusion. MMode/2D Measurements Calculations LVIDd: 5.0 cm IVSd: 1.3 cm Ao root diam: 4.1 cm LVIDs: 3.5 cm LVPWd: 1.3 cm RVDd: 3.5 cm FS: 30.1 % LAV(MOD-bp): 61.1 ml LVAd ap4: 26.5 cm2 SV(MOD-sp4): 38.6 ml LAV(MOD-bp) Indexed: 27.5 ml/m2 LVLd ap4: 7.6 cm SI(MOD-sp4): 17.4 ml/m2 LAV(MOD-sp2): 62.6 ml EDV(MOD-sp4): 75.0 ml LAV(MOD-sp4): 55.3 ml EDV(sp4-el): 78.2 ml LVAs ap4: 16.5 cm2 LVLs ap4: 6.3 cm ESV(MOD-sp4): 36.4 ml ESV(sp4-el): 36.5 ml EF(MOD-sp4): 51.4 % EF(sp4-el): 53.4 % SV(sp4-el): 41.7 ml LA A4 area: 19.7 cm2 LA dimension(2D): 4.3 cm RA A4 area: 16.7 cm2 Doppler Measurements Calculations MV E max galileo: 103.7 cm/sec MV V2 max: 104.3 cm/sec Ao V2 max: 109.8 cm/sec MV max P.4 mmHg Ao max P.9 mmHg MV V2 mean: 56.5 cm/sec MV mean P.7 mmHg MV V2 VTI: 22.2 cm LV V1 max: 105.1 cm/sec PA V2 max: 90.0 cm/sec TR max galileo: 251.2 cm/sec LV V1 max P.4 mmHg PA V2 mean: 67.7 cm/sec TR max P.2 mmHg ECHO/Echo Complete Interpretation Summary Normal LV size. Left ventricular systolic function is normal. The left ventricular ejection fraction is 55 %. Moderate concentric left ventricular hypertrophy. Ordering Physician: Mickey Jones Performed By: Pedro Cartagena and Student 11/07/24 1623 Date Mickey Jones MD CC: Dr. Mickey Jones MD; Dr. Aurelio Raines DO; Dr. Dinh Hennessy MD Date Dictated: 11/07/24922 Date Transcribed: 11/07/241622 Automation Clerk: Signed Normal [facility] Echocardiogram study reportO rdered By: Mickey Jones on 11-07-2024 Study report [facility] [address] [place] [id number] Echo Complete 11/07/24922 MR#: [id number] Acct: [id number] Name: AMALIA SERVIN Rep #:[id number] : 1965 59 From: Mickey Trotter Attending Dr: Dr. Aurelio Raines DO Status: ADM IN Ordering Dr: Mickey Jones MD Date: 01/24 Location: [facility] Sex: M C Admitted: 11/07/24 Reason For Study Reason For Study: Arrhythmia Procedure This was a 2D Doppler, Color Flow transthoracic echocardiogram. Exam performed in department. Left Ventricle Normal LV size. Moderate concentric left ventricular hypertrophy. Left ventricular systolic function is normal. The left ventricular ejection fraction is 55 %. No regional wall motion abnormalities noted. Right Ventricle Normal RV size. Normal systolic function. Atria Normal left atrium. Normal right atrium. Mitral Valve Normal mitral valve. Tricuspid Valve Normal tricuspid valve. Mild tricuspid valve insufficiency. Pulmonary artery systolic pressure is 28 mmHg. Aortic Valve Trisinus/trileaflet aortic valve. Pulmonic Valve Normal pulmonic valve. Great Vessels Mildly dilated aortic root. The pulmonary artery is normal size. Inferior vena cava collapse with respiration. Pericardium/Pleural No pericardial effusion. MMode/2D Measurements & Calculations LVIDd: 5.0 cm IVSd: 1.3 cm Ao root diam: 4.1 cm LVIDs: 3.5 cm LVPWd: 1.3 cm RVDd: 3.5 cm FS: 30.1 % LAV(MOD-bp): 61.1 ml LVAd ap4: 26.5 cm2 SV(MOD-sp4): 38.6 ml LAV(MOD-bp) Indexed: 27.5 ml/m2 LVLd ap4: 7.6 cm SI(MOD-sp4): 17.4 ml/m2 LAV(MOD-sp2): 62.6 ml EDV(MOD-sp4): 75.0 ml LAV(MOD-sp4): 55.3 ml EDV(sp4-el): 78.2 ml LVAs ap4: 16.5 cm2 LVLs ap4: 6.3 cm ESV(MOD-sp4): 36.4 ml ESV(sp4-el): 36.5 ml EF(MOD-sp4): 51.4 % EF(sp4-el): 53.4 % SV(sp4-el): 41.7 ml LA A4 area: 19.7 cm2 LA dimension(2D): 4.3 cm RA A4 area: 16.7 cm2 Doppler Measurements & Calculations MV E max galileo: 103.7 cm/sec MV V2 max: 104.3 cm/sec Ao V2 max: 109.8 cm/sec MV max P.4 mmHg Ao max P.9 mmHg MV V2 mean: 56.5 cm/sec MV mean P.7 mmHg MV V2 VTI: 22.2 cm LV V1 max: 105.1 cm/sec PA V2 max: 90.0 cm/sec TR max galileo: 251.2 cm/sec LV V1 max P.4 mmHg PA V2 mean: 67.7 cm/sec TR max P.2 mmHg ECHO/Echo Complete Interpretation Summary Normal LV size. Left ventricular systolic function is normal. The left ventricular ejection fraction is 55 %. Moderate concentric left ventricular hypertrophy. Ordering Physician: Mickey Jones Performed By: Pedro Cartagena and Student 11/07/241622 Date _ Mickey Jones MD CC: Dr. Mickey Jones MD; Dr. Aurelio Raines DO; Dr. Dinh Hennessy MD ~ Date Dictated: 11/07/24922 Date Transcribed: 11/07/241622 Automation Clerk: Signed [facility] Work Phone: Eosinophil percentageOrdered By: Víctor Villafuerte on 11-07-2024 Eosinophils/100 WBC (Bld) 2.0 % 0-5 [facility] Erythrocyte distribution wid th ratioOrdered By: Víctor Villafuerte on 11-07-2024 Erythrocyte distribution width (RBC) [Ratio] 13.2 % 11.6-14.6 [facility] Erythrocyte distribution wid th standard deviationOrdered By: Víctor Villafuerte on 11-07-2024 Erythrocyte distribution width (RBC) [Ratio] 44.6 fl High 35.1-43.9 [facility] Glomerular filtration rate ( GFR) estimation/1.73 sq m using serum, plasma, or whole bOrdered By: Víctor Villafuerte on 11-07-2024 GFR/1.73 sq M.predicted among non-blacks MDRD (S/P/Bld) [Vol rate/Area] 100 mL/min/{1.73_m2} >60 [facility] Comment on above: mL/min/1.73m2 CKD-EP I Creatinine Equation (2020) H AND P Exam - [facility] 11-07-2024 H&P Exam - Hospitalist [facility] Medical Records Department [address] [place] [address] H P Exam - Hospitalist 11/07/24 0404 MR#: [id number] Acct: [id number] Name: AMALIA SERVIN Rep #: [id number] : 1965 59 From: Víctor Villafuerte DO PCP: Dr. Dinh Hennessy MD Status:ADM IN Location: [place] [id number] HPI - General General Date of Admission: 11/07/24 Date of Service: 11/07/24 Chief Complaint: A-fib with RVR HPI Narrative AMALIA SERVIN, is a 59 M who presented initially to [facility] ED on the evening of 11/06 with chest discomfort and palpitations. He was found there to have new onset A-fib with RVR with rate in the 140s to 150s. Started on Cardizem drip with improvement in rate to the 90s to 100s but remained in A-fib. No cardiology services available there so patient was transferred here on the mold filler of 11/07 for further management. I saw the patient at bedside this morning. Patient was laying back comfortably in bed, conversing normally, in no acute distress. He does report mild chest discomfort with palpitations currently and on the monitor he remains in A-fib with rate in the 90s to 100s. He is currently on the Cardizem drip at 5. Patient has no significant past medical history, is on no medications at home. He reports an episode similar to this about 1 month ago that lasted for 10 to 15 minutes and then resolved on its own. He denies any alcohol or tobacco use. At outside ED, his lab workup was benign with troponins negative x 2, normal BNP and normal TSH. CBC and BMP were unremarkable. [facility] Home Medications ???Medication ???Instructions ???Recorded ???Last Taken ???Type NK 11/07/24 Unknown History Allergy/AdvReac Type Severity Reaction Status Date / Time Penicillins Allergy Severe Anaphylaxis Verified 11/07/24 04:07 Social History Smoking Status: Never smoker ROS Constitutional Constitutional: Denies chills, fatigue, fever(s) or weakness Eyes Eyes: Denies change in vision Cardiovascular Cardiovascular: Reports chest pain, palpitations and rapid heart rate; Denies dyspnea on exertion, edema, lightheadedness or orthopnea Respiratory/Chest Respiratory/Chest: Denies cough, shortness of breath at rest or wheezing Gastrointestinal Gastrointestinal: Denies abdominal pain Neurologic Neurologic: Denies dizziness Vital Signs Vital Signs Vital Signs: Weight Weight: 105.3 kg Body Mass Index (BMI) 33.3 Physical Exam Const alert, oriented x3 and no apparent distress Constitutional Narrative: Pleasant middle-age male, class I obesity, sitting back comfortably in bed, conversing normally, in no acute distress. General Appearance: cooperative and comfortable HEENT normocephalic, head/scalp atraumatic, hearing grossly normal bilaterally, nasal mucous membranes and turbinates normal and moist oral mucous membranes Eyes PERRL, EOMs intact bilaterally and conjunctivae normal Neck full ROM Chest inspection of chest normal Resp normal respiratory effort, normal air movement, no use of accessory muscles and clear to auscultation bilaterally Cardio no murmurs and peripheral pulses 2+ throughout Cardio Narrative: A-fib, rate controlled. GI normal to inspection, nondistended, normoactive bowel sounds, soft to palpation, non-tender and non- distended Back/Spine normal ROM Extremity normal to inspection, full ROM and no pedal edema Skin no rashes or lesions noted Psych mental status grossly normal Results Lab / Micro Data 11/07/24 04:25 11/07/24 04:25 Assessment Plan Assessment/Plan (1) Paroxysmal atrial fibrillation with RVR: PLAN: Plan Patient is a 59-year-old male who initially presented to [facility] ED on 11/06/2024 with chest discomfort and palpitations. Was found to have new onset A-fib with RVR and was transferred to [facility] on 11/07 for further management. 1. New onset A-fib with RVR ??? Admit under inpatient status to PCU. Cardiology consulted. No significant past medical history. Presented with A-fib with RVR with rate to the 140s 150s. Rate improved to the 90s to 100s on Cardizem drip but remains in A-fib. Episode of chest discomfort with palpitations started about 30 minutes prior to his arrival to their ED. Appears patient may be a good cardioversion candidate but will defer this to cardiology. Will keep patient n.p.o. for now. Will continue Cardizem and heparin drips. 2. Class I obesity ??? BMI 33 on admit. Complicates hospital course, care and prognosis. DVT prophylaxis: Not indicated, on heparin drip CODE STATUS: Full code, verified Expected disposition: Home, TBD Total clinical time spent by myself addressing the patient's medical issues, reviewing all the data, and collaborating with patient's care team: 55 minutes. Charges/C (more content not included)... Normal [facility] Hematocrit Auto (Bld) [Volum e fraction]Ordered By: Víctor Villafuerte on 11-07-2024 Hematocrit (Bld) [Volume fraction] 45.2 % 40-54 [facility] Hemoglobin measurementOrdere d By: Víctor Villafuerte on 11-07-2024 Hemoglobin (Bld) [Mass/Vol] 15.3 g/dL 13.0-16.5 [facility] Immature granulocytes/100 WB C Auto (Bld)Ordered By: Víctor Villafuerte on 11-07-2024 Immature granulocytes/100 WBC (Bld) 0.300 % 0.0-0.9 [facility] Comment on above: IG% - Immature Granu locytes (promyelocytes, myelocytes and metamyelocytes) > 1% indicates that a LEFT SHIFT is Present. MCV (mean corpuscular volume ) determinationOrdered By: Víctor Villafuerte on 11-07-2024 MCV (RBC) [Entitic vol] 91.7 fL 80-94 [facility] Mean corpuscular hemoglobin (MCH) determinationOrdered By: Víctor Villafuerte on 11-07-2024 MCH (RBC) [Entitic mass] 31.0 pg 27.0-32.0 [facility] Mean corpuscular hemoglobin concentration (MCHC) determinationOrdered By: Víctor Villafuerte on 11-07-2024 MCHC (RBC) [Mass/Vol] 33.8 g/dL 32-36 [facility] Mean platelet volume determi nationOrdered By: Víctor Villafuerte on 11-07-2024 Platelet mean volume (Bld) [Entitic vol] 11.9 fL 6.2-12.0 [facility] Monocyte percentageOrdered B y: Víctor Villafuerte on 11-07-2024 Monocytes/100 WBC (Bld) 6.8 % 0-10 [facility] Neutrophil percentageOrdered By: Víctor Villafuerte on 11-07-2024 Neutrophils/100 WBC (Bld) 51.3 % 47-70 [facility] Nucleated red blood cell per centageOrdered By: Víctor Villafuerte on 11-07-2024 Nucleated RBC/100 WBC (Bld) [Ratio] 0 % 0-5 [facility] Partial Thromboplast Timeon 11-07-2024 aPTT Coag (Bld) [Time] 34.1 s Normal 24.1-36.2 [facility] Comment on above: Performed By: #### L 140.2072 #### [facility] Laboratory [address] [place], [place], [id number] Platelet countOrdered By: Willy Villafuerte on 11-07-2024 Platelets (Bld) [#/Vol] 222 10*3/uL 150-450 [facility] Potassium measurement (mass/ volume)Ordered By: Víctor Villafuerte on 11-07-2024 Potassium (Unsp spec) [Mass/Vol] 4.0 mmol/L 3.3-5.1 [facility] RBC Auto (Bld) [#/Vol]Ordere d By: Víctor Villafuerte on 11-07-2024 RBC (Bld) [#/Vol] 4.93 10*6/uL 4.6-6.2 [facility] Serum creatinine measurement (mass/volume)Ordered By: Víctor Villafuerte on 11-07-2024 Creatinine [Mass/Vol] 0.86 mg/dL 0.70-1.20 [facility] Serum glucose measurement (m ass/volume)Ordered By: Víctor Villafuerte on 11-07-2024 Glucose [Mass/Vol] 124 mg/dL High 70-99 [facility] Serum or plasma calcium josé antonio urement (mass/volume)Ordered By: Víctor Villafuerte on 11-07-2024 Calcium [Mass/Vol] 9.3 mg/dL 7.6-11.0 [facility] Serum or plasma urea nitroge n measurement (mass/volume)Ordered By: Víctor Villafuerte on 11-07-2024 Urea nitrogen [Mass/Vol] 16 mg/dL 4-19 [facility] Sodium levelOrdered By: Bart Villafuerte on 11-07-2024 Sodium [Moles/Vol] 140 mmol/L 133-145 [facility] White blood cell (WBC) count Ordered By: Víctor Villafuerte on 11-07-2024 WBC (Bld) [#/Vol] 7.7 10*3/uL 4.4-11.0 [facility] APTTon 11-06-2024 aPTT Coag (Bld) [Time] 32.3 s Normal 25.4 - 38.4 [facility] Comment on above: Performed By: #### 2 17665 #### [facility],[address] [place] [address] CBC + DIFFon 11-06-2024 Baso # 0.03 x10EE3/UL Normal 0.00 - 0.10 [facility] Comment on above: Performed By: #### 2 26764 #### [facility],[address] [place] [address] Basophils/100 WBC (Bld) 0.4 % Normal 0.0 - 2.0 [facility] Comment on above: Performed By: #### 2 54538 #### [facility],[address] [place] [address] CBC + DIFF Normal [facility] Comment on above: Result Comment: CBC- COMPLETE BLOOD COUNT Performed By: #### 2 06763 #### [facility],[address] [place] [address] EO # 0.21 x10EE3/UL Normal 0.00 - 0.50 [facility] [facility] Comment on above: Performed By: #### 2 83399 #### [facility],[address] [place] [address] Eosinophils/100 WBC (Bld) 2.2 % Normal 0.0 - 7.0 [facility] Comment on above: Performed By: #### 2 11328 #### [facility],[address] [place] [address] Erythrocyte distribution width (RBC) [Ratio] 13.3 % Normal 12.0 - 15.6 [facility] Comment on above: Performed By: #### 2 67599 #### [facility],[address] [place] [address] Hematocrit (Bld) [Volume fraction] 50.8 % Normal 40.0 - 52.0 [facility] Comment on above: Performed By: #### 2 41019 #### [facility],[address] [place], [place] [id number] Hemoglobin (Bld) [Mass/Vol] 17.2 g/dL Normal 13.0 - 17.5 [facility] Comment on above: Performed By: #### 2 81153 #### [facility],[address] [place] [address] Lymph # 3.68 x10EE3/UL High 0.80 - 2.80 [facility] [facility] Comment on above: Performed By: #### 2 34217 #### [facility],[address] [place] [address] Lymphocytes/100 WBC (Bld) 38.9 % Normal 20.0 - 45.0 [facility] Comment on above: Performed By: #### 2 62961 #### [facility],[address] [place] [address] MANUAL DIFF N/A Normal [facility] Comment on above: Performed By: #### 2 16056 #### [facility],[address] [place], [place] [id number] MCH (RBC) [Entitic mass] 31 pg Normal 27 - 33 [facility] Comment on above: Performed By: #### 2 71969 #### [facility],[address] [place] [address] 17059 MCHC 34 X10 3 Normal 32 - 36 [facility] Comment on above: Performed By: #### 2 27182 #### [facility],[address] [place] [address] 57160 MCV (RBC) [Entitic vol] 90 fL Normal 81 - 98 [facility] Comment on above: Performed By: #### 2 73360 #### [facility],[address] [place] [address] 86988 [place] # 0.71 x10EE3/UL Normal 0.20 - 1.00 [facility] [facility] Comment on above: Performed By: #### 2 21518 #### [facility],[address] [place] [address] 27285 MONOS % 7.5 % Normal 0.0 - 10.0 [facility] Comment on above: Performed By: #### 2 96637 #### [facility],[address] [place] [address] 11330 Morphology Bradley (Bld) [Interp] N/A Normal [facility] Comment on above: Performed By: #### 2 22340 #### [facility],[address] [place] [address] 86031 Neut # 4.84 x10EE3/UL Normal 1.50 - 7.10 [facility] [facility] Comment on above: Performed By: #### 2 13684 #### [facility],[address] [place] [address] 50076 Neutrophils/100 WBC (Bld) 51.1 % Normal 46.0 - 76.0 [facility] Comment on above: Performed By: #### 2 28219 #### [facility],[address] [place] [address] 21282 PLATELET 263 x10EE3/UL Normal 150 - 450 [facility] Comment on above: Performed By: #### 2 93148 #### [facility],[address] [place] [address] 46135 Platelet mean volume (Bld) [Entitic vol] 9.2 fL Normal 6.4 - 10.5 [facility] Comment on above: Result Comment: AUTO MATED DIFFERENTIAL Performed By: #### 2 72254 #### [facility],[address] [place] [address] 34634 RBC 5.63 x 10EE6/UL Normal 4.50 - 6.00 [facility] Comment on above: Performed By: #### 2 30769 #### [facility],[address] [place] [address] 12921 WBC 9.5 x 10EE3/UL Normal 4.5 - 10.8 [facility] Comment on above: Performed By: #### 2 50267 #### [facility],[address] [place] [address] 89305 CHEST 1 VIEWon 11-06-2024 CHEST [address] [address] Patient: AMALIA SERVIN Phone#: : 1965 Age: 59 Gender: M Pt. Type: ER Account: [id number] Location: [facility] Ordering: SANJU COLON Exam Date: 11/06/2024/22:42 Family Phys: DINH HENNESSY Charge Code: 031943 Physician: [place] Order #: [id number] Dose#: PROCEDURE: X-RAY CHEST 1 VIEW COMPARISON: [facility], XR, CHEST 2 VIEWS, 03/24/2018, 17:12. INDICATIONS: chest pain FINDINGS: LUNGS: Normal. No significant pulmonary parenchymal abnormalities. VASCULATURE: Normal. Unremarkable pulmonary vasculature. CARDIAC: Normal. No cardiac silhouette abnormality or cardiomegaly. MEDIASTINUM: Normal. No visible mass or adenopathy. PLEURA: Normal. No effusion or pleural thickening. BONES: Normal. No fracture or visible bony lesion. OTHER: Monitoring leads project across the thorax CONCLUSION: No acute disease. No significant change has occurred. Dictated by: Nimisha Vidales MD on 11/07/2024 at 8:55 Approved by: Nimisha Vidales MD on 11/07/2024 at 8:57 Normal [facility] CMP with eGFRon 11-06-2024 AGE 59 years Normal [facility] Comment on above: Performed By: #### 2 48830 #### [facility],[address] [place] [address] 33439 Albumin [Mass/Vol] 4.0 g/dL Normal 3.4 - 5.0 [facility] Comment on above: Performed By: #### 2 03146 #### [facility],[address] [place] [address] 68038 Albumin/Globulin [Mass ratio] 1.1 {ratio} Normal 0.9 - 1.6 [facility] Comment on above: Performed By: #### 2 41301 #### [facility],[address] [place] [address] 46577 ALK PHOS 86 U/L Normal 46 - 116 [facility] Comment on above: Performed By: #### 2 95096 #### [facility],[address] [place] [address] 37866 ALT [Catalytic activity/Vol] 43 U/L Normal 16 - 63 [facility] Comment on above: Performed By: #### 2 91521 #### [facility],[address] [place] [address] 01443 Anion gap [Moles/Vol] 11 mmol/L Normal 10 - 20 [facility] Comment on above: Performed By: #### 2 22948 #### [facility],[address] [place] [address] 53982 AST [Catalytic activity/Vol] 18 U/L Normal 15 - 37 [facility] Comment on above: Performed By: #### 2 38035 #### [facility],[address] [place] [address] 32243 B/C RATIO 19 ratio Normal 0 - 30 [facility] Comment on above: Performed By: #### 2 20606 #### [facility],[address] [place] [address] 04908 Bilirubin [Mass/Vol] 0.4 mg/dL Normal 0.2 - 1.0 [facility] Comment on above: Performed By: #### 2 97641 #### [facility],[address] [place] [address] 77151 Calcium [Mass/Vol] 9.4 mg/dL Normal 8.5 - 10.1 [facility] Comment on above: Performed By: #### 2 26459 #### [facility],[address] [place] [address] 85344 Chloride [Moles/Vol] 103 mmol/L Normal 98 - 107 [facility] Comment on above: Performed By: #### 2 61511 #### [facility],[address] [place] [address] 79759 CMP with eGFR Normal [facility] Comment on above: Result Comment: COMP REHENSIVE METABOLIC PANEL Performed By: #### 2 18377 #### [facility],[address] [place], [place] [id number] CO2 [Moles/Vol] 29.1 mmol/L Normal 21.0 - 32.0 [facility] Comment on above: Performed By: #### 2 57503 #### [facility],[address] [place] [address] Creatinine [Mass/Vol] 0.95 mg/dL Normal 0.70 - 1.30 [facility] Comment on above: Performed By: #### 2 92786 #### [facility],[address] [place] [address] GFR/1.73 sq M.predicted among non-blacks MDRD (S/P/Bld) [Vol rate/Area] mL/min/{1.73_m2} Normal 60 - 999 [facility] Comment on above: Performed By: #### 2 41411 #### [facility],[address] [place] [address] Result Comment: ACCO RDING TO THE NATIONAL KIDNEY DISEASE EDUCATION PROGRAM(NKDE), A NORMAL eGFR IS A VALUE GREATER THAN OR EQUAL TO 60 ML/MIN/1.73 SQ METERS. CHRONIC KIDNEY DISEASE: <60mL/MIN/1.73 SQ METERS KIDNEY FAILURE: <15mL/MIN/1.73 SQ METERS THIS TEST SHOULD ONLY BE USED FOR PATIENTS 18 YEARS OF AGE AND OLDER. Globulin (S) [Mass/Vol] 3.6 g/dL Normal 1.5 - 3.8 [facility] Comment on above: Performed By: #### 2 90808 #### [facility],[address] [place] [address] Glucose [Mass/Vol] 110 mg/dL High 74 - 106 [facility] Comment on above: Performed By: #### 2 75365 #### [facility],[address] [place] [address] 70510 Potassium [Moles/Vol] 3.7 mmol/L Normal 3.5 - 5.1 [facility] Comment on above: Performed By: #### 2 98010 #### [facility],[address] [place] [address] 44953 Protein [Mass/Vol] 7.6 g/dL Normal 6.4 - 8.2 [facility] Comment on above: Performed By: #### 2 34463 #### [facility],[address] [place], [place] [address] Sodium [Moles/Vol] 139 mmol/L Normal 136 - 145 [facility] Comment on above: Performed By: #### 2 49003 #### [facility],[address] [place], [place] [address] Urea nitrogen [Mass/Vol] 18 mg/dL Normal 7 - 18 [facility] Comment on above: Performed By: #### 2 65098 #### [facility],[address] [place] [address] 75659 D-DIMER, QUANTITATIVEon 07-0 -2024 D-DIMER QUANT <200 Normal 0 - 230 [facility] Comment on above: Performed By: #### 2 31298 #### [facility],[address] [place] [address] 80155 D-DIMER, QUANTITATIVE Normal [facility] Comment on above: Result Comment: ARJUN T D-DIMER Performed By: #### 2 65971 #### [facility],[address] [place] [address] 64524 NT-proBNPon 11-06-2024 Natriuretic peptide B (Bld) [Mass/Vol] 56 pg/mL Normal 0 - 125 [facility] Comment on above: Performed By: #### 2 59686 ####[facility],[address] [place], [place] [address] PROTHROMBIN TIME AND INRon 0 11-06-2024 INR Coag (PPP) [Relative time] 0.9 {INR} Normal 0.8 - 1.2 [facility] Comment on above: Result Comment: T HE HEMOSIL THROMBOPLASTIN REAGENT USED IN THE PROTHROMBIN TIME TEST INTERACTS WITH THE DRUG CUBICIN (DAPTOMYCIN) AND WILL RESULT IN FALSELY ELEVATED PT / INR RESULTS INR INTERPRETATION INR INDICATION PREVENTION AND TREATMENT OF THROMBOEMBOLISM ASSOCIATED WITH: 2.0 - 3.0 ATRIAL FIBRILLATION, BIOPROSTHETIC HEART VALVES, PULMONARY EMBOLISM, VENOUS THROMBOSIS, SYSTEMIC EMBOLISM POST MYOCARDIAL INFARCTION 2.5 - 3.5 MECHANICAL HEART VALVES Performed By: #### 2 25351 ####[facility],[address] [place] [address] PROTHROMBIN TIME AND INR Normal [facility] Comment on above: Result Comment: PROT HROMBIN TIME AND INR Performed By: #### 2 92488 ####[facility],[address] [place] [address] PT-COUMADIN 10.5 sec Normal 9.3 - 14.1 [facility] Comment on above: Performed By: #### 2 52618 ####[facility],[address] [place], [place] [id number] TROPONINon 11-06-2024 HS TROPONIN 17.5 pg/mL Normal 0.0 - 76.2 [facility] Comment on above: Performed By: #### 2 85979 #### [facility],[address] [place], [place] [address] HS TROPONIN 15.9 pg/mL Normal 0.0 - 76.2 [facility] Comment on above: Performed By: #### 2 20077 #### [facility],[address] [place], [place] [id number] TSHon 11-06-2024 TSH Qn 3.21 m[IU]/L Normal 0.35 - 3.74 [facility] Comment on above: Performed By: #### 2 75252 #### [facility],[address] [place] [address] 69818 SHOULDER COMPLETE RTon 03-20 SHOULDER COMPLETE RT [address] [address] Patient: AMALIA SERVIN Phone#: : 1965 Age: 58 Gender: M Pt. Type: Out Account: [id number] Location: 052 Ordering: KANG SIDHU Exam Date: 03/20/2024/16:58 Family Phys: Charge Code: 865068 Physician: [place] Order #: [id number] Dose#: PROCEDURE: X-RAY SHOULDER COMPLETE RT MIN 2 VIEWS COMPARISON: None. INDICATIONS: Right shoulder pain. FINDINGS: BONES: Humeral head is normal in contour. Joint space is maintained. No fracture or dislocation. Normal alignment. There are degenerative changes of the lower thoracic spine. SOFT TISSUES: Negative. No visible soft tissue swelling. EFFUSION: None visible. OTHER: Negative. CONCLUSION: 1. Unremarkable right shoulder radiograph Dictated by: Nimisha Vidales MD on 03/20/2024 at 17:21 Approved by: Nimisha Vidales MD on 03/20/2024 at 17:26 Normal [facility] COMPREHENSIVE METABOLIC PANE Teodoro 10-26-2022 Albumin [Mass/Vol] 4.3 g/dL Normal 3.6-5.1 [facility] Comment on above: Performed By: #### 1 3319, 5362 #### [facility] [address], [address] [place], [place] [id number] [employer] Supervisor: Thaddeus Carr MD Albumin/Globulin [Mass ratio] 1.6 {ratio} Normal 1.0-2.5 [facility] Comment on above: Performed By: #### 1 5520, 5331 #### [facility] [address], [address] [place] [phone] [employer] Supervisor: Thaddeus Carr MD ALP [Catalytic activity/Vol] 74 U/L Normal 35-144 [facility] Comment on above: Performed By: #### 1 3801, 5363 #### [facility] of [address], [address] [place] [address] [employer] Supervisor: Thaddeus Carr MD ALT [Catalytic activity/Vol] 21 U/L Normal 9-46 [facility] Comment on above: Performed By: #### 1 023, 5363 #### [facility] of [address], [address] [place] [address] [employer] Supervisor: Thaddeus Carr MD AST [Catalytic activity/Vol] 18 U/L Normal 10-35 [facility] Comment on above: Performed By: #### 1 023, 5363 #### [facility] of [place] [address] [employer] Supervisor: Thaddeus Carr MD Bilirubin [Mass/Vol] 0.7 mg/dL Normal 0.2-1.2 [facility] Comment on above: Performed By: #### 1 230, 5363 #### [facility] of [place] [address] [employer] Supervisor: Thaddeus Carr MD BUN/CREATININE RATIO NOT APPLICABLE Normal 6-22 [facility] Comment on above: Performed By: #### 1 023, 5363 #### [facility] of [place] [address] [employer] Supervisor: Thaddeus Carr MD Calcium [Mass/Vol] 9.7 mg/dL Normal 8.6-10.3 [facility] Comment on above: Performed By: #### 1 023, 5363 #### [facility] of [place] [address] [employer] Supervisor: Thaddeus Carr MD Chloride [Moles/Vol] 104 mmol/L Normal 98-110 [facility] Comment on above: Performed By: #### 1 023, 5363 #### [facility] of [place] [address] [employer] Supervisor: Thaddeus Carr MD CO2 [Moles/Vol] 28 mmol/L Normal 20-32 [facility] Comment on above: Performed By: #### 1 230, 5363 #### [facility] [place] [address] [employer] Supervisor: Thaddeus Carr MD Creatinine [Mass/Vol] 0.86 mg/dL Normal 0.70-1.30 [facility] Comment on above: Performed By: #### 1 230, 5363 #### [facility] [address], [address] [place] [address] [employer] Supervisor: Thaddeus Carr MD GFR/1.73 sq M.predicted among non-blacks MDRD (S/P/Bld) [Vol rate/Area] 101 mL/min/{1.73_m2} Normal > OR = 60 [facility] Comment on above: Result Comment: The eGFR is based on the CKD-EPI 2020 equation. To calculate the new eGFR from a previous Creatinine or Cystatin C result, go to https://www.kidney.org/professionals/ kdoqi/gfr%5Fcalculator Performed By: #### 1 230, 5363 #### [facility] [address], [address] [place] [address] [employer] Supervisor: Thaddeus Carr MD Globulin (S) [Mass/Vol] 2.7 g/dL Normal 1.9-3.7 [facility] Comment on above: Performed By: #### 1 230, 5363 #### [facility] [address], [address] [place] [address] [employer] Supervisor: Thaddeus Carr MD Glucose [Mass/Vol] 105 mg/dL High 65-99 [facility] Comment on above: Result Comment: Fasting reference interval For someone without known diabetes, a glucose value between 100 and 125 mg/dL is consistent with prediabetes and should be confirmed with a follow-up test. Performed By: #### 1 230, 5363 #### [facility] [address], [address] [place] [address] [employer] Supervisor: Thaddeus Carr MD Potassium [Moles/Vol] 4.3 mmol/L Normal 3.5-5.3 [facility] Comment on above: Performed By: #### 1 230, 5363 #### [facility] [address], [address] [place] [address] [employer] Supervisor: Thaddeus aCrr MD Protein [Mass/Vol] 7.0 g/dL Normal 6.1-8.1 [facility] Comment on above: Performed By: #### 1 1, 5363 #### [facility] [address], [address] [place] [address] [employer] Supervisor: Thaddeus Carr MD Sodium [Moles/Vol] 139 mmol/L Normal 135-146 [facility] Comment on above: Performed By: #### 1 0231, 5363 #### [facility] [place] [address] [employer] Supervisor: Thaddeus Carr MD Urea nitrogen [Mass/Vol] 15 mg/dL Normal 7-25 [facility] Comment on above: Performed By: #### 1 023, 5363 #### [facility] [place] [address] [employer] Supervisor: Thaddeus Carr MD PSA, TOTALon 10-26-2022 PSA, TOTAL 0.93 ng/mL Normal < OR = 4.00 [facility] Comment on above: Result Comment: The total PSA value from this assay system is standardized against the WHO standard. The test result will be approximately 20% lower when compared to the equimolar-standardized total PSA (Tomi Tafton). Comparison of serial PSA results should be interpreted with this fact in mind. This test was performed using the Siemens chemiluminescent method. Values obtained from different assay methods cannot be used interchangeably. PSA levels, regardless of value, should not be interpreted as absolute evidence of the presence or absence of disease. Performed By: #### 1 023, 5363 #### [facility] [place] [address] [employer] Supervisor: Thaddeus Carr MD Laboratory - Chemistry and C hemistry - challengeon 10-25-2022 Albumin [Mass/Vol] 4.3 g/dL Normal 3.6 - 5.1 g/dL [facility]. Albumin/Globulin [Mass ratio] 1.6 {ratio} Normal 1.0 - 2.5 [facility].; [facility], [facility]. ALP [Catalytic activity/Vol] 74 U/L Normal 35 - 144 U/L [facility], [facility].; [facility]. ALT [Catalytic activity/Vol] 21 U/L Normal 9 - 46 U/L [facility].; [facility], [facility]. AST [Catalytic activity/Vol] 18 U/L Normal 10 - 35 U/L [facility], [facility].; [facility]. Bilirubin [Mass/Vol] 0.7 mg/dL Normal 0.2 - 1 .2 mg/dL [facility], [facility].; [facility], [facility]. Bilirubin Ql (U) small Abnormal [facility], [facility].; [facility], [facility]. Calcium [Mass/Vol] 9.7 mg/dL Normal 8.6 - 10. 3 mg/dL [facility], [facility].; [facility], [facility]. Chloride [Moles/Vol] 104 mmol/L Normal 98 - 11 0 mmol/L [facility], [facility].; [facility], [facility]. CO2 [Moles/Vol] 28 mmol/L Normal 20 - 32 mmol/L [facility], [facility].; [employer] [facility], [facility]. Creatinine [Mass/Vol] 0.86 mg/dL Normal 0.70 - 1.30 mg/dL [facility], [facility].; [facility], [facility]. GFR/1.73 sq M.predicted among non-blacks MDRD (S/P/Bld) [Vol rate/Area] 101 mL/min/{1.73_m2} Normal [facility], [facility].; [employer] [facility] Glucose [Mass/Vol] 105 mg/dL Abnormal 65 - 99 mg/dL [facility], [facility].; [employer] [facility] Ketones Ql (U) 15 mg/dL Abnormal [facility], [facility].; [facility] [employer] pH (U) 5.5 [pH] Normal [facility], [facility].; [facility] Potassium [Moles/Vol] 4.3 mmol/L Normal 3.5 - 5.3 mmol/L [facility]; [facility] Protein [Mass/Vol] 7.0 g/dL Normal 6.1 - 8.1 g/dL [facility]; [facility] Sodium [Moles/Vol] 139 mmol/L Normal 135 - 146 mmol/L [facility]; [facility] Specific gravity (U) [Rel density] 1.030 Abnormal [facility]; [facility] Urea nitrogen [Mass/Vol] 15 mg/dL Normal 7 - 25 mg/d L [facility]; [facility] Urobilinogen Qn (U) 0.2 mg/dL Normal [facility]; [employer] [facility] Laboratory - Hematology and Cell countson 10-25-2022 Hemoglobin Ql (U) trace, hemolyzed Abnormal [facility]; [facility] Laboratory - Microbiology an d Antimicrobial susceptibilityon 10-25-2022 S. pyogenes Ag EIA Ql (Throat) Positive Abnormal [facility]; [facility] Laboratory - Specimen inform ationon 10-25-2022 Appearance (U) clear Normal [facility]; [employer] [facility] Color (U) darren Normal [facility]; [facility] Laboratory - Urinalysison Glucose Test strip (U) [Mass/Vol] Negative Normal [facility]; [employer] [facility] Leukocyte esterase Test strip Ql (U) Negative Normal [facility]; [employer] [facility] Nitrite Ql (U) Negative Normal [facility] Protein Ql (U) 30 mg/dL Abnormal [facility]; [employer] [facility] No Panel Informationon 10-25 BUN/CREATININE RATIO NOT APPLICABLE Normal 6 - 22 [facility]; [facility] GLOBULIN 2.7 Normal 1.9 - 3.7 [facility] [employer] PSA, TOTAL 0.93 ng/mL Normal [employer] [employer] [employer] ESOPHOGRAMon 07-13-2018 ESOPHOGRAM [place] [address] Name: AMALIA SERVIN Phys: YAMILE GALARZA M.D. : 65 Age: 53 Sex: M Acct: [id number] Loc: RAD Exam Date: 07/13/18 Status: REG CLI Radiology No.: [id number] Unit Number: [id number] Exam # Type/Exam [id number] RAD / ESOPHOGRAM XR ESOPHAGRAM, air-contrast with barium pill Clinical Statement: Dysphagia, trouble swallowing, coughing During and following a barium meal, the esophagus was examined by the air contrast method under fluoroscopic control and with films. 2.6 minutes of fluoroscopic time was utilized for the procedure. 84.666 mGy There was no obstruction to the flow of contrast material. The esophagus is normal in course and caliber, but uncoordinated, nonpropulsive tertiary contraction waves resulting in a to-and-fro motion of the swallowed barium in the esophagus were noted. No hiatal hernia was seen, but spontaneous gastroesophageal reflux was produced during the examination. The esophagus demonstrates no narrowing, dilatation, filling defects, ulceration, or displacement. The swallowed barium pill passed to the stomach without becoming dislodged. IMPRESSION: Mild to moderate gastroesophageal reflux. Moderate tertiary contraction waves, which can be seen with a presbyesophagus, underlying inflammation, reflux disease, diffuse esophageal spasm, various neuromuscular disorders, or connective tissue disorders. Statistically, most likely due to underlying inflammation, reflux disease or diffuse esophageal spasm. No stricture. Professional interpretation provided by [facility], [place] on RAC-PC-60. Thank you for this referral. < > Reported By: MARGAUX YUNG D.O. Signed In [employer] By: MARGAUX YUNG D.O. << Signature on File>> Reported By: MARGAUX YUNG D.O. Signed By: MARGAUX YUNG D.O. Tests performed at: [place] [address] Normal [facility] AMYLASEon 06-15-2018 Amylase enzyme act/vol 40 U/L Normal 28-100 [facility] Comment on above: Performed By: #### L 100.0005, L100.0340, L100.0350 #### ML - LABORATORY [address] [place] [address] 26495 CBCon 06-15-2018 Basophils #/vol (Bld) 0.10 x10(3) Normal 0.00-0.10 [facility] Comment on above: Performed By: #### L 200.0010 #### ML [facility] [address] [place] [address] 64435 Basophils/100 WBC (Bld) 1.0 % Normal 0.0-1.0 [facility] Comment on above: Performed By: #### L 200.0010 #### ML [facility] [address] [place] [address] 41280 Eosinophils #/vol (Bld) 0.20 x10(3) Normal 0.00-0.54 [facility] Comment on above: Performed By: #### L 200.0010 #### ML [facility] [address] [place] [address] 51159 Eosinophils/100 WBC (Bld) 2.7 % Normal 0.5-4.9 [facility] Comment on above: Performed By: #### L 200.0010 #### ML [facility] [address] [place] [address] 46799 Erythrocyte distribution width Ratio (RBC) 13.2 % Normal 12.7-15.3 [facility] Comment on above: Performed By: #### L 200.0010 #### ML [facility] [address] [place] [address] 82468 Hematocrit Volume Fraction (Bld) 46.7 % Normal 42.0-51.0 [facility] Comment on above: Performed By: #### L 200.0010 #### ML [facility] [address] [place] [address] 38084 Hemoglobin mass conc (Bld) 16.2 g/dL Normal 14.0-17.2 [facility] Comment on above: Performed By: #### L 200.0010 #### ML - LABORATORY [address] [place] [address] 89519 Lymphocytes #/vol (Bld) 2.40 x10(3) Normal 1.00-3.50 [facility] Comment on above: Performed By: #### L 200.0010 #### ML - LABORATORY [address] [place] [address] 33831 Lymphocytes/100 WBC (Bld) 38.9 % Normal 16.0-48.0 [facility] Comment on above: Performed By: #### L 200.0010 #### ML - LABORATORY [address] [place] [address] 18071 MCH Entitic mass (RBC) 31.6 pg Normal 28.8-32.2 [facility] Comment on above: Performed By: #### L 200.0010 #### ML - LABORATORY [address] [place] [address] 47895 MCHC mass conc (RBC) 34.6 g/dL Normal 33.0-36.0 [facility] Comment on above: Performed By: #### L 200.0010 #### ML - LABORATORY [address] [place] [address] 08679 MCV Entitic volume (RBC) 91.3 fL Normal 80.0-94.0 [facility] Comment on above: Performed By: #### L 200.0010 #### ML - LABORATORY [address] [place] [address] 91537 Monocytes #/vol (Bld) 0.50 x10(3) Normal 0.30-0.80 [facility] Comment on above: Performed By: #### L 200.0010 #### ML - LABORATORY [address] [place] [address] 21120 Monocytes/100 WBC (Bld) 7.5 % Normal 4.3-11.2 [facility] Comment on above: Performed By: #### L 200.0010 #### ML - LABORATORY [address] [place] [address] 89839 Neutrophils #/vol (Bld) 3.10 x10(3) Normal 1.40-6.50 [facility] Comment on above: Performed By: #### L 200.0010 #### ML - LABORATORY [address] [place] [address] 38055 Neutrophils/100 WBC (Bld) 49.9 % Normal 45.0-73.0 [facility] Comment on above: Performed By: #### L 200.0010 #### ML - LABORATORY [address] [place] [address] 52407 Platelet mean volume Entitic volume (Bld) 10.7 fL High 7.4-9.2 [facility] Comment on above: Performed By: #### L 200.0010 #### ML - LABORATORY [address] [place] [address] 86170 Platelets #/vol (Bld) 233 X10(3) Normal 150-450 [facility] Comment on above: Performed By: #### L 200.0010 #### ML - LABORATORY [address] [place] [address] 78015 RBC #/vol (Bld) 5.12 x10(6) Normal 4.80-5.50 [facility] Comment on above: Performed By: #### L 200.0010 #### ML [facility] [address] [place] [address] 91843 WBC #/vol (Bld) 6.2 x10(3) Normal 4.5-10.0 [facility] Comment on above: Performed By: #### L 200.0010 #### ML [facility] [address] [place] [address] 64213 CMPon 06-15-2018 A:G RATIO 1.74 Normal 1.1-2.5 [facility] Comment on above: Performed By: #### L 100.0005, L100.0340, L100.0350 #### [facility] - LABORATORY [address] [place] [address] 25228 Albumin mass conc 4.7 g/dL Normal 3.5-5.2 [facility] Comment on above: Performed By: #### L 100.0005, L100.0340, L100.0350 #### [facility] - LABORATORY [address] [place] [address] 51893 ALK. PHOS 70 U/L Normal 40-130 [facility] Comment on above: Performed By: #### L 100.0005, L100.0340, L100.0350 #### ML - LABORATORY [address] [place] [address] 53006 ALT enzyme act/vol 33 U/L Normal 5-41 [facility] Comment on above: Performed By: #### L 100.0005, L100.0340, L100.0350 #### ML - LABORATORY [address] [place] [address] 41696 Anion gap molar conc 14.8 mmol/L Low 15-22 [facility] Comment on above: Performed By: #### L 100.0005, L100.0340, L100.0350 #### ML - LABORATORY [address] [place] [address] 04619 AST enzyme act/vol 29 U/L Normal 5-40 [facility] Comment on above: Performed By: #### L 100.0005, L100.0340, L100.0350 #### ML - LABORATORY [address] [place] [address] 17242 Bilirubin Ql (U) 0.5 mg/dL Normal 0.2-1.2 [facility] Comment on above: Performed By: #### L 100.0005, L100.0340, L100.0350 #### - LABORATORY [address] [place] [address] 21729 Calcium mass conc 10.2 mg/dL High 8.6-10.0 [facility] Comment on above: Performed By: #### L 100.0005, L100.0340, L100.0350 #### ML - LABORATORY [address] [place] [address] 58839 Chloride molar conc 97 mmol/L Low 98-107 [facility] Comment on above: Performed By: #### L 100.0005, L100.0340, L100.0350 #### - LABORATORY [address] [place] [address] 34565 CO2 molar conc 29 mmol/L Normal 22-29 [facility] Comment on above: Performed By: #### L 100.0005, L100.0340, L100.0350 #### ML - LABORATORY [address] [place] [address] 85291 Creatinine mass conc 0.81 mg/dL Normal 0.70-1.20 [facility] Comment on above: Performed By: #### L 100.0005, L100.0340, L100.0350 #### ML - LABORATORY [address] [place] [address] 72168 eGFR if AFR MARIELLA > 60 ml/min/1.73m2 Normal [facility] Comment on above: Result Comment: eGFR >= 60 Indicates normal kidney function. * eGFR IS AN ESTIMATE * (AFR MARIELLA = ) (non-AFR AM = NON-) MDRD calculation used in the eGFR should not be used to dose medications. For further limitations of the eGFR please refer to the Physician Website or the National Kidney Disease Education Program website (www.nkdep.nih.gov). Performed By: #### L 100.0005, L100.0340, L100.0350 #### [facility] [address] [place] [address] 00854 eGFR nonAFR Mariella > 60 ml/Min/1.73m2 Normal [facility] Comment on above: Performed By: #### L 100.0005, L100.0340, L100.0350 #### ML [facility] [address] [place] [address] Globulin mass conc (S) 2.7 g/dL Normal 1.5-4.5 [facility] Comment on above: Performed By: #### L 100.0005, L100.0340, L100.0350 #### - LABORATORY [address] [place] [address] Glucose mass conc 94 mg/dL Normal 74-106 [facility] Comment on above: Performed By: #### L 100.0005, L100.0340, L100.0350 #### ML - LABORATORY [address] [place] [address] 96999 Potassium molar conc 3.8 mmol/L Normal 3.5-5.0 [facility] Comment on above: Performed By: #### L 100.0005, L100.0340, L100.0350 #### ML - LABORATORY [address] [place] [address] 33307 Protein mass conc 7.4 g/dL Normal 6.4-8.3 [facility] Comment on above: Performed By: #### L 100.0005, L100.0340, L100.0350 #### [facility] - LABORATORY [address] [place] [address] 35182 Sodium molar conc 137 mmol/L Normal 135-145 [facility] Comment on above: Performed By: #### L 100.0005, L100.0340, L100.0350 #### ML - LABORATORY [address] [place] [address] 62935 Urea nitrogen mass conc 18 mg/dL Normal 6-20 [facility] Comment on above: Performed By: #### L 100.0005, L100.0340, L100.0350 #### ML - LABORATORY [address] [place] [address] 02958 LIPASEon 06-15-2018 Lipase enzyme act/vol 19 U/L Normal 13-60 [facility] Comment on above: Performed By: #### L 100.0005, L100.0340, L100.0350 #### [facility] - LABORATORY [address] [place] [address] ANGIO ABD AND PEL W/POST PROCon 02-11-2018 CT ANGIO ABD AND PEL W/POST PROC CT ANGIO ABD & PEL W/POST PROCOrdering Physician: Tenzin Mcdonald MD02/11/2018 7:37 AMCTA ANGIOGRAM OF THE ABDOMINAL AORTA AND ITS BRANCHES:Clinical Statement: Abdominal pain. Iliac compression.Comparis on: NoneTECHNIQUE: Helical CT acquisition of the abdomen and pelvis obtainedboth before and after the intravenous administration of 100 cc of lowosmolar contrast. Noncontrasted images are formatted in the axialprojection. Contrasted images are formatted in the axial and coronalprojection as well as processed on the [employer] independent [employer]-Dimaging workstation.FINDINGS : Scans to the lung bases and cardiac apex arenoncontributory. The liver, pancreas, spleen, and both adrenal glandsare within normal limits for this phase of contrast enhancement.Surgical clips are present in the gallbladder fossa. Both kidneys arenormal in size and contour with no mass or hydronephrosis. Bothkidneys enhance with contrast appropriately. There is no free air orfluid within the abdomen or pelvis. The included loops of bowel aregrossly unremarkable on this nonenteric contrasted study. The prostateand seminal vesicles are grossly unremarkable. The bladder isincompletely distended with no perivesical inflammation. The includedbones demonstrate degenerative change without an obvious bonedestructive lesion. Tiny umbilical hernia containing fat only.The abdominal aorta is widely patent to the level of its bifurcation.The celiac artery, superior mesenteric artery and inferior mesentericartery are patent. There are single renal arteries bilaterally whichare widely patent. Left renal vein is preaortic in position. Bothcommon iliac arteries, both internal iliac arteries and both externaliliac arteries are widely patent as are the common femoral arteries.IMPRESSION: 1. Negative examination of the aorta and aortofemoral segments.2. Please see above for incidental findings and complete details. ---- Electronic Signature on File ----Signed By: Carlos Hernandez [email or web address] Radiology/PACS/PACs. htmDictated: 02/11/2018 1:35 PMSigned: 02/11/2018 1:41 PM Reported By: CARLOS HERNANDEZ M.D. Signed By: CARLOS HERNANDEZ M.D. [facility] Anion gap molar conc 19.4 mmol/L Normal 15-22 [facility] Comment on above: Performed By: #### L 100.0010 #### [facility] - [facility] [address] [place] [address] Calcium mass conc 9.5 mg/dL Normal 8.6-10.0 [facility] Comment on above: Performed By: #### L 100.0010 #### ML - LABORATORY [address] [place] [address] 93923 Chloride molar conc 103 mmol/L Normal 98-107 [facility] Comment on above: Performed By: #### L 100.0010 #### ML - LABORATORY [address] [place] [address] 22761 CO2 molar conc 23 mmol/L Normal 22-29 [facility] Comment on above: Performed By: #### L 100.0010 #### ML - LABORATORY [address] [place] [address] 80180 Creatinine mass conc 0.85 mg/dL Normal 0.70-1.20 [facility] Comment on above: Performed By: #### L 100.0010 #### ML - LABORATORY [address] [place] [address] 46794 eGFR if AFR MARIELLA > 60 ml/min/1.73m2 Normal [facility] Comment on above: Result Comment: eGFR >= 60 Indicates normal kidney function. * eGFR IS AN ESTIMATE * (AFR MARIELLA = ) (non-AFR AM = NON-) MDRD calculation used in the eGFR should not be used to dose medications. For further limitations of the eGFR please refer to the Physician Website or the National Kidney Disease Education Program website (www.nkdep.nih.gov). Performed By: #### L 100.0010 #### ML - LABORATORY [address] [place] [address] 55510 eGFR nonAFR Mariella > 60 ml/Min/1.73m2 Normal [facility] Comment on above: Performed By: #### L 100.0010 #### ML - LABORATORY [address] [place] [address] 85674 Glucose mass conc 102 mg/dL Normal 74-106 [facility] Comment on above: Performed By: #### L 100.0010 #### [facility] - [facility] [address] [place] [address] Potassium molar conc 4.4 mmol/L Normal 3.5-5.0 [facility] Comment on above: Performed By: #### L 100.0010 #### ML - LABORATORY [address] [place] [address] 96537 Sodium molar conc 141 mmol/L Normal 135-145 [facility] Comment on above: Performed By: #### L 100.0010 #### [facility] - [facility] [address] [place] [address] Urea nitrogen mass conc 19 mg/dL Normal 6-20 [facility] Comment on above: Performed By: #### L 100.0010 #### ML - [facility] [address] [place] [address] 12079 Laboratory - Chemistry and C hemistry - challengeon 11-30-2017 Glucose Glucometer (BldC) [Moles/Vol] 90 Normal 60 - 120 [facility] Vital Signs Date Time Vital Sign Value Performing Clinician Facility 12-03-2024 13:56-0400 Body height 177.[address] Dinh Hennessy MD Work Phone: [facility] 12-03-2024 13:56-0400 Body mass index (BMI) [Ratio] 33.5 kg/m2 Dr. Dinh Hennessy MD Work Phone: [facility] 12-03-2024 13:56-0400 Body weight 106.[address] Dinh Hennessy MD Work Phone: [facility] 12-03-2024 13:56-0400 Diastolic blood pressure 79 mm[Hg] Dr. Dinh Hennessy MD Work Phone: [facility] 12-03-2024 13:56-0400 Heart rate 60 /min Dr. Dinh Hennessy MD Work Phone: [facility] 12-03-2024 13:56-0400 Respiratory rate 16 /min Dr. Dinh Hennessy MD Work Phone: [facility] 12-03-2024 13:56-0400 Systolic blood pressure 124 mm[Hg] Dr. Dinh Hennessy MD Work Phone: [facility] 11-23-2024 14:48-0400 Body height 176.53 cm Curry Cyrus [facility]. 11-23-2024 14:48-0400 Body mass index (BMI) [Ratio] 33.62 kg/m2 Curry Cyrus [facility].; [facility]. 11-23-2024 14:48-0400 Body surface area Derived from formula 2.21 m2 [facility] 11-23-2024 14:48-0400 [facility] 11-23-2024 14:48-0400 Diastolic blood pressure 71 mm[Hg] Curry Cyrus [facility].; [facility]. Comment on above: Patient Position: Sitting; Cuff Location : Left Arm; Cuff Size: Standard 11-23-2024 14:48-0400 Heart rate 65 /min [facility]. Comment on above: Pattern: Regular 11-23-2024 14:48-0400 Systolic blood pressure 116 mm[Hg] Curry Cyrus [facility].; [facility]. Comment on above: Patient Position: Sitting; Cuff Location : Left Arm; Cuff Size: Standard 11-07-2024 17:28-0400 Body temperature 98.4 [degF] Dr. Dinh Hennessy MD Work Phone: [facility] 11-07-2024 17:28-0400 Diastolic blood pressure 80 mm[Hg] Dr. Dinh Hennessy MD Work Phone: [facility] 11-07-2024 17:28-0400 Heart rate 62 /min Dr. Dinh Hennessy MD Work Phone: [facility] 11-07-2024 17:28-0400 Respiratory rate 15 /min Dr. Dinh Hennessy MD Work Phone: [facility] 11-07-2024 17:28-0400 SaO2% (BldA) [Mass fraction] 98 % Dr. Dinh Hennessy MD Work Phone: [facility] 11-07-2024 17:28-0400 Systolic blood pressure 114 mm[Hg] Dr. Dinh Hennessy MD Work Phone: [phone] [place] [address] 11-07-2024 11:00-0400 Body height 177.[address] Dinh Hennessy MD Work Phone: [phone] [address] 11-07-2024 11:00-0400 Body weight 105.[address] Dinh Hennessy MD Work Phone: [phone] [address] 11-07-2024 03:45-0400 Body mass index (BMI) [Ratio] 33.3 kg/m2 Dr. Dinh Hennessy MD Work Phone: [facility] 03-26-2024 16:06-0500 Body height 176.53 cm Curry Bridges LPN [facility]. 03-26-2024 16:06-0500 Body mass index (BMI) [Ratio] 34.35 kg/m2 Curry Bridges LPN [facility], [facility].; [facility], [facility]. 03-26-2024 16:06-0500 Body surface area Derived from formula 2.23 m2 Curry Bridges LPN [facility], [facility].; [facility]. 03-26-2024 16:06-0500 Body weight 107.05 kg Curry Bridges [employer] [facility].; [facility]. 03-26-2024 16:06-0500 Diastolic blood pressure 85 mm[Hg] Curry Bridges LPN [facility]. Comment on above: Patient Position: Sitting; Cuff Location : Left Arm; Cuff Size: Standard 03-26-2024 16:06-0500 Heart rate 103 /min Curry Bridges LPN [facility], [facility].; [facility], [employer]. Comment on above: Pattern: Regular 03-26-2024 16:06-0500 Systolic blood pressure 128 mm[Hg] Curry Bridges LPN [facility] [employer] [facility], [employer]. Comment on above: Patient Position: Sitting; Cuff Location : Left Arm; Cuff Size: Standard 03-20-2024 15:14-0500 Body height 176.53 cm Curry Bridges LPN [facility], [facility].; [facility], [employer]. 03-20-2024 15:14-0500 Body mass index (BMI) [Ratio] 34.35 kg/m2 Curry Bridges CIGAR INSPECTOR [facility], [facility].; [employer] [facility], [employer]. 03-20-2024 15:14-0500 Body surface area Derived from formula 2.23 m2 Curry Bridges CIGAR INSPECTOR [facility], [facility].; [employer] [facility], [facility]. 03-20-2024 15:14-0500 Body weight 107.05 kg Curry Bridges LPN [facility], [facility].; [employer] [facility], [employer]. 03-20-2024 15:14-0500 Diastolic blood pressure 77 mm[Hg] Curry Bridges LPN [facility], [facility].; [employer] [facility], [employer]. Comment on above: Patient Position: Sitting; Cuff Location : Left Arm; Cuff Size: Standard 03-20-2024 15:14-0500 Heart rate 80 /min Curry Bridges LPN [facility], [facility].; [employer] [facility], [employer]. Comment on above: Pattern: Regular 03-20-2024 15:14-0500 Inhaled oxygen concentration 21 % Curry Bridges CIGAR INSPECTOR [facility], [facility].; [employer] [facility], [employer]. Comment on above: Room air 03-20-2024 15:14-0500 SaO2% (BldA) [Mass fraction] 100 % Curry Bridges LPN [facility] [employer] 03-20-2024 15:14-0500 Systolic blood pressure 138 mm[Hg] Curryallan Bridges ARABELLA [facility]. Comment on above: Patient Position: Sitting; Cuff Location : Left Arm; Cuff Size: Standard 03-01-2024 08:43-0400 Body height 176.53 cm Curry Bridges LPN [facility].; [facility]. 03-01-2024 08:43-0400 Body mass index (BMI) [Ratio] 34.06 kg/m2 Curry Bridges LPN [facility], [facility].; [facility]. 03-01-2024 08:43-0400 Body surface area Derived from formula 2.22 m2 Curry Bridges LPN [facility].; [facility], [facility]. 03-01-2024 08:43-0400 Body temperature 97.1 [degF] Curry Bridges [facility].; [facility], [facility]. 03-01-2024 08:43-0400 Body weight 106.14 kg Curry Bridges CIGAR INSPECTOR [facility], [facility].; [facility]. 03-01-2024 08:43-0400 Diastolic blood pressure 76 mm[Hg] Curry Bridges [facility], [facility].; [employer] [facility]. Comment on above: Patient Position: Sitting; Cuff Location : Left Arm; Cuff Size: Standard 03-01-2024 08:43-0400 Heart rate 73 /min Curry Bridges LPN [facility], [facility].; [employer] Comment on above: Pattern: Regular 03-01-2024 08:43-0400 Inhaled oxygen concentration 21 % Curry Bridges [facility], [facility].; [employer] [facility]. Comment on above: Room air 03-01-2024 08:43-0400 SaO2% (BldA) [Mass fraction] 99 % Curry Bridges [facility], [facility].; [employer] [facility]. 03-01-2024 08:43-0400 Systolic blood pressure 127 mm[Hg] Curry Bridges LPN [facility], [facility].; [employer] Comment on above: Patient Position: Sitting; Cuff Location : Left Arm; Cuff Size: Standard 03-02-2023 13:02-0400 Body weight 104.33 kg Curry Bridges LPN [facility] [employer] [facility], [employer]. 03-02-2023 13:02040 Diastolic blood pressure 74 mm[Hg] Curry Bridges LPN [facility] [employer], [employer]. Comment on above: Patient Position: Sitting; Cuff Location : Left Arm; Cuff Size: Standard 03-02-2023 13:02040 Heart rate 80 /min Curry Bridges LPN [facility] [employer], [employer]. Comment on above: Pattern: Regular 03-02-2023 13:02040 Systolic blood pressure 120 mm[Hg] Curry Bridges LPN [facility] [employer] Comment on above: Patient Position: Sitting; Cuff Location : Left Arm; Cuff Size: Standard 10-25-2022 15:13-0400 Body temperature 99 [degF] Curry Bridges CIGAR INSPECTOR [facility] [employer] 10-25-2022 15:130400 Body weight 103.42 kg Curry Bridges LPN [facility] [employer], [employer]. 10-25-2022 15:130400 Diastolic blood pressure 88 mm[Hg] Curry Bridges LPN [facility] [employer], [employer]. Comment on above: Patient Position: Sitting; Cuff Location : Left Arm; Cuff Size: Standard 10-25-2022 15:130400 Heart rate 91 /min Curry Bridges ARABELLA [facility] [employer] Comment on above: Pattern: Regular 10-25-2022 15:13-0400 Inhaled oxygen concentration 21 % Curry Bridges CIGAR INSPECTOR [facility] [employer], [employer]. Comment on above: Room air 10-25-2022 15:13-0400 SaO2% (BldA) [Mass fraction] 96 % Curryallan Bridges ARABELLA [facility] [employer] 10-25-2022 15:13-0400 Systolic blood pressure 144 mm[Hg] Curryallan Bridges ARABELLA [facility] [employer], [employer]. Comment on above: Patient Position: Sitting; Cuff Location : Left Arm; Cuff Size: Standard 04-03-2021 14:03-0500 Body height 176.53 cm Janny Soria CIGAR INSPECTOR [employer] [facility], [facility].; [employer] 04-03-2021 14:03-0500 Body mass index (BMI) [Ratio] 36.39 kg/m2 Janny Maryjaneugg CIGAR INSPECTOR [employer] [facility], [facility] [employer], [facility]. 04-03-2021 14:03-0500 Body surface area Derived from formula 2.28 m2 Janny Zaugg CIGAR INSPECTOR [employer], [facility]. 04-03-2021 14:030500 Body weight 113.4 kg Janny Wesleyugg CIGAR INSPECTOR [employer] [facility], [facility].; [employer], [employer]. 04-03-2021 14:03-0500 Diastolic blood pressure 85 mm[Hg] Janny Wesleyugg CIGAR INSPECTOR [employer] [facility], [facility].; [employer], [employer]. Comment on above: Patient Position: Sitting; Cuff Location : Left Arm; Cuff Size: Standard 04-03-2021 14:03-0500 Heart rate 93 /min Janny Soria CIGAR INSPECTOR [employer] [facility], [facility].; [employer], [employer]. Comment on above: Pattern: Regular 04-03-2021 14:03-0500 Systolic blood pressure 148 mm[Hg] Janny Wesleyugg CIGAR INSPECTOR [employer] [facility], [facility].; [employer], [employer]. Comment on above: Patient Position: Sitting; Cuff Location : Left Arm; Cuff Size: Standard 06-07-2018 16:04-0500 Body height 176.53 cm Mary Krystle CIGAR INSPECTOR Work Phone: [employer], [employer], [employer]. 06-07-2018 16:04-0500 Body mass index (BMI) [Ratio] 36.24 kg/m2 Mary Krystle CIGAR INSPECTOR Work Phone: [employer], [employer].; [employer], [employer]. 06-07-2018 16:04-0500 Body surface area Derived from formula 2.28 m2 [facility] SANCHEZN Work Phone: [employer] 06-07-2018 16:04-0500 Body weight 112.95 kg Mary Dalton LPN Work Phone: [employer] 06-07-2018 16:04-0500 Diastolic blood pressure 89 mm[Hg] Mary Dalton CIGAR INSPECTOR Work Phone: [employer]. Comment on above: Patient Position: Sitting; Cuff Location : Left Arm; Cuff Size: Large 06-07-2018 16:04-0500 Heart rate 81 /min Mary Krystle CIGAR INSPECTOR Work Phone: [employer]; [employer] Comment on above: Pattern: Regular 06-07-2018 16:04-0500 Systolic blood pressure 141 mm[Hg] Mary Dalton CIGAR INSPECTOR Work Phone: [employer]. Comment on above: Patient Position: Sitting; Cuff Location : Left Arm; Cuff Size: Large 03-22-2018 15:53-0500 Body height 176.53 cm Mary Dalton LPN Work Phone: [employer] 03-22-2018 15:53-0500 Body mass index (BMI) [Ratio] 36.83 kg/m2 Mary Krystle CIGAR INSPECTOR Work Phone: [employer] 03-22-2018 15:53-0500 Body surface area Derived from formula 2.29 m2 Mary Krystle CIGAR INSPECTOR Work Phone: [employer] 03-22-2018 15:53-0500 Body weight 114.76 kg Mary Dalton CIGAR INSPECTOR Work Phone: [employer] 03-22-2018 15:53-0500 Diastolic blood pressure 89 mm[Hg] Mary Andrey CIGAR INSPECTOR Work Phone: [employer]. Comment on above: Patient Position: Sitting; Cuff Location : Left Arm; Cuff Size: Large 03-22-2018 15:53-0500 Heart rate 80 /min Mary Andrey CIGAR INSPECTOR Work Phone: [employer]. Comment on above: Pattern: Regular 03-22-2018 15:53-0500 Systolic blood pressure 142 mm[Hg] Mary Andrey CIGAR INSPECTOR Work Phone: [employer]. Comment on above: Patient Position: Sitting; Cuff Location : Left Arm; Cuff Size: Large 11-30-2017 15:30-0400 Body height 176.53 cm Mary Krystle CIGAR INSPECTOR Work Phone: [employer] 11-30-2017 15:30-0400 Body mass index (BMI) [Ratio] 34.93 kg/m2 [facility] CIGAR INSPECTOR Work Phone: [employer] 11-30-2017 15:30-0400 Body surface area Derived from formula 2.24 m2 Mary Krystle CIGAR INSPECTOR Work Phone: [employer] 11-30-2017 15:30-0400 Body weight 108.86 kg Mary Krystle CIGAR INSPECTOR Work Phone: [employer] 11-30-2017 15:30-0400 Diastolic blood pressure 100 mm[Hg] Mary Krystle CIGAR INSPECTOR Work Phone: [employer]. Comment on above: Patient Position: Sitting; Cuff Location : Left Arm; Cuff Size: Large 11-30-2017 15:30-0400 Heart rate 87 /min Mary Krystle CIGAR INSPECTOR Work Phone: [employer] Comment on above: Pattern: Regular 11-30-2017 15:30-0400 Systolic blood pressure 148 mm[Hg] Mary Dalton LPN Work Phone: [facility]; [employer] Comment on above: Patient Position: Sitting; Cuff Location : Left Arm; Cuff Size: Large Encounters Encounter Date Encounter Type Care Provider Facility Start: 12-03-2024 End: 12-03-2024 Patient encounter procedure Dinh RodriguezMahad [facility] Work Phone: Start: 12-03-2024 End: 12-03-[address] Dinh Hennessy MD Work Phone: [employer] [facility] Start: 11-26-2024 End: 11-26-2024 Orders Dinh Hennessy MD Work Phone: [employer] Start: 11-23-2024 End: 11-23-2024 ambulatory DINH HENNESSY [facility] Start: 11-23-2024 Follow-up encounter Dinh clarke MD Work Phone: [employer] Start: 11-23-2024 End: 11-23-2024 Office outpatient visit 25 minutes Dinh Hennessy MD Work Phone: [employer] Start: 11-09-2024 End: 11-09-2024 Telephone follow-up Dinh Hennessy MD [facility] Start: 11-08-2024 Non-patient / Non-visit Kallie Price [facility] Work Phone: Start: 11-08-2024 ambulatory Kallie Guzman ty:[facility] Start: 11-07-2024 ambulatory Mickey Jones Facility:[facility] Start: 11-07-2024 Non-patient / Non-visit Dr. Mickey Jones MD -[facility] Start: 11-07-2024 ambulatory Víctor Villafuerte Fac ility:[facility] Start: 11-07-2024 End: 11-07-2024 Evaluation and management of inpatient Dr. Aurelio Raines DO -Pro[facility] Unit Work Phone: Start: 11-07-[address] NITA Trotter Facility:[facility] Start: 11-06-2024 End: 11-07-2024 Emergency department patient visit [facility] Start: 03-26-2024 End: 03-26-2024 Procedure Dinh Hennessy MD Work Phone: [employer] Start: 03-20-2024 End: 03-20-2024 ambulatory [facility] Start: 03-20-2024 End: 03-21-2024 Office outpatient visit 25 minutes Dinh Hennessy MD Work Phone: [employer] Start: 03-01-2024 End: 03-01-2024 Office outpatient visit 15 minutes Dinh Hennessy MD Work Phone: [employer] Start: 03-01-2024 Review Dinh watkins MD Work Phone: [employer] Start: 03-02-2023 End: 03-02-2023 Office outpatient visit 15 minutes Dinh Hennessy MD Work Phone: [employer] Start: 10-25-2022 End: 10-25-2022 Office outpatient visit 25 minutes Dinh Hennessy MD Work Phone: [employer] Start: 04-03-2021 End: 04-03-2021 Patient encounter procedure Dinh Hennessy MD Work Phone: [employer] Start: 07-13-2018 Patient encounter procedure YAMILE GALARZA Facility:[facility] Start: 07-07-2018 End: 07-07-2018 Orders Dinh Hennessy MD Work Phone: [employer] Start: 07-05-2018 End: 07-05-2018 Historical Summary Dinh Hennessy MD Work Phone: [employer] Start: 06-15-2018 Patient encounter procedure SHLOMO Goldie ALMONTEDARYL Facility:[facility] Start: 06-07-2018 End: 06-07-2018 Patient encounter procedure Dinh Hennessy MD Work Phone: [employer] Start: 03-22-2018 End: 03-22-2018 Patient encounter procedure Dinh Hennessy MD Work Phone: [employer] Start: 02-11-2018 Patient encounter Cherise Mcdonald Fac ility:[facility] Start: 01-26-2018 Patient encounter procedure Barb MCDONALD Facility:[facility] Start: 12-06-2017 End: 12-06-2017 Historical Summary Dinh Hennessy MD Work Phone: [employer] Start: 12-05-2017 End: 12-05-2017 Historical Summary Dinh Hennessy MD Work Phone: [employer] Start: 11-30-2017 End: 12-01-2017 Patient encounter procedure Dinh Hennessy MD Work Phone: [employer] Procedures Date Procedure Procedure Detail Performing Clinician Start: 11-23-2024 End: 11-26-2024 Radex spine cervical 4 or 5 views Kang Sidhu PA-C Work Phone: Start: 11-07-[address] 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 heath Turner epeat 10 yr Start: 03-22-2018 End: 03-22-2018 Flu immunize order/admin Dinh singleton MD Work Phone: Start: 03-22-2018 End: 03-27-2018 Radiologic exam chest 2 views Dinh Hennessy MD Work Phone: Start: 12-05-2017 End: 12-05-2017 Echocardiography Janny Soria LPN Comment on above: 12/05/17 ECHO nl.. EF 60% Start: 12-05-2017 End: 12-05-2017 venous doppler Janny Soria LPN Comment on above: 12/05/17 venous dopple r neg blat LE Start: 11-30-2017 End: 12-07-2017 Echo tthrc r-t 2d w/wom-mode compl spec&colr d Dinh Hennessy MD Work Phone: Start: 11-30-2017 End: 12-05-2017 Dup-scan lxtr art/artl bpgs uni/lmtd study Dinh Hennessy MD Work Phone: Start: 11-30-2017 End: 11-30-2017 Body mass index documented Dinh meadows MD Work Phone: Start: 05-02-2003 End: 05-02-2003 Knee surgery Janny Soria LPN Comment on above: Had fracture of femu r and torn ACL--repaired and has plate and screws Cholecystectomy Janny chávez LPN Operative procedure on shoulder Janny Soria LPN Plan of Treatment Date Care Activity Detail Author Start: 12-03-2024 Evaluation of diagnostic study results [facility] Start: 11-23-2024 Patient encounter procedure Medical; Hospital F/U - hosp d/c 11/07 [facility], [facility] Start: 23-Nov-2024 15:00-04:00 KAYLEE Sidhu Appointment Request [facility] Start: 11-23-2024 Radex spine cervical 4 or 5 views Cervical Spine x-ray ([id number]) Start: 23-Nov-2024 [facility] [employer] [facility]; [employer] Start: 11-07-2024 Patient discharge [facility] Start: 11-07-2024 End: 11-07-2024 Care planning and problem solving actions [facility] Start: 11-07-2024 Referral to refinery operator [facility] Start: 11-07-2024 Verification routine [facility] Start: 11-07-2024 Admission procedure [facility] Start: 11-07-2024 Ambulation without limitation [facility] Start: 11-07-2024 Assessment of risk of venous thromboembolism [facility] Start: 11-07-2024 Incentive spirometry [facility] Start: 11-07-2024 Insertion of catheter into peripheral vein [facility] Start: 11-07-2024 Measuring intake and output [facility] Start: 11-07-2024 Oxygen therapy [facility] Start: 11-07-2024 Providing care according to standard [facility] Start: 11-07-2024 Referral to service [facility] Start: 11-07-2024 [facility] Start: 11-07-2024 Following clinical pathway protocol [facility] Start: 11-07-2024 Patient referral to dietitian [facility] Start: 03-26-2024 Triamcinolone acet inj NOS Kenalog injection, 40mg/ml ([id number]) Start: 26-Mar-2024 Intent [employer] [facility] [employer] Start: 03-20-2024 Radex shoulder complete minimum 2 views Shoulder x-ray, Right Complete ([id number]) Start: 20-Mar-2024 Intent [employer] Start: 04-03-2021 Radex spine lumbosacral minimum 4 views Lumbar Spine x-ray ([id number]) Start: 03-Apr-2021 Intent [facility] [employer] Start: 07-07-2018 End: 07-11-2018 Polysom 6/>yrs sleep 4/> addl jasmin attnd Sleep Study Date: 07-Jul-2018 [facility] Radionuclide imaging of perfusion of myocardium under exercise stress [facility] Immunizations Immunization Date Immunization Notes Care Provider Fa cility 03-04-2018 influenza virus vaccine, unspecified formulation Dinh Hennessy MD Work Phone: [facility] [employer] 03-04-2018 influenza, injectabl e, quadrivalent, contains preservative Dinh Hennessy MD Work Phone: [facility] [employer] Comment on above: at work Payers Date Payer Category Payer Self-pay 2024 Unknown [id number] 2017 Unknown [id number] 1965 Unknown [id number] 2.16. [id number] 1965 Unknown [id number] 2.16.8 [id number] 1965 Unknown [id number] 1965 Unknown [id number] .16.8 [id number] Unknown [id number] 2.16.8 [id number] Unknown [id number] 2.16.8 [id number] Unknown [id number] 2.16.8 [id number] Unknown [id number] 2.16.8 [id number] Unknown [employer] Unknown [id number] 2.16.8 [id number] Unknown [id number] 2.16.8 [id number] Unknown [id number] 2.16.8 [id number] Unknown [id number] 2.16.8 [id number] Unknown [id number] 2.16.8 [id number] Social History Date Type Detail Facility Tobacco Use: Tobacco Use: ; N ever smoker. [facility], [facility].; [facility] Start: 1965 Male [facility] Start: 11-07-2024 End: 12-03-2024 Never smoked tobacco [facility] ospital Goals Date Patient Goal Desired Activity /State Functional Status Date Assessment Result Facility 11-07-2024 Functional status Ambulates;Bathroom Priv ilege [facility] Work Phone: Mental Status Date Assessment Result Facility 11-07-2024 Cognitive function Voice/Name [facility] Work Phone: Clinical Notes 11-07-2024 Note Date & Type Note Facility 11-07-2024 Discharge summary Note Date/Time November 07, 2024 4:53p m [facility] Medical Records Department [address] [place] [id number] Discharge Summary 11/07/24 1535 MR#: [id number] Acct: [id number] Name: AMALIA SERVIN Rep #:[id number] : 1965 59 From: Aurelio Raines DO PCP: Dr. Dinh Hennessy MD Status:A DM IN [facility] Prov[facility] Date of Admission: 11/07/24 Primary Care Physician: Dr. Dinh Hennessy MD Consultations 11/07/24 05:47 Consult: Cardiology Routine Consulting Provider: Mickey Jones Reason for Consult: new onset afib w/ rvr, consider DCCV? EMERGENT Consult: No MD Notified: Yes Date Notified: 11/07/24 Time Notified: 05:47 Method of Notification: Text Method of Consult:: In-Person Reason For Visit: AFIB RVR Diagnosis Discharge Diagnosis (1) Paroxysmal atrial fibrillation with RVR: Status: Acute Code(s): I48.0 - Paroxysmal atrial fibrillation Plan: converted to NSR. Suspect he has likely had intermittent afib. cardiology consult. check echo on apixaban and metoprolol tartrate 50 BID. Plan Obesity class I: complicates care and recovery. VTE prophylaxis: not indicated as already anticoagulated. DW pt's at bedside. Medications at Discharge Home Medications NK 11/07/24 apixaban 5 mg tablet (Eliquis) 5 mg PO BID #60 tabs 11/07/24 metoprolol tartrate 50 mg tablet 50 mg PO BID #60 tabs 11/07/24 Hospital Course Operations None Procedures 2-D Echocardiogram Summary of Care Provided Minutes Spent on Discharge: 32 Weight / BMI Weight Weight: 105.3 kg Body Mass Index (BMI) 33.3 ABG / Lab / Microbiology Data 11/07/24 04:25 11/07/24 04:25 Laboratory: Laboratory Results - last 24 hr 11/07/24 04:25: WBC 7.7, RBC 4.93, Hgb 15.3, Hct 45.2, MCV 91.7, MCH 31.0, MCHC 33.8, RDW Std Deviation 44.6 H, RDW Coeff of Tiffanie 13.2, Plt Count 222, MPV 11.9, Immature Gran % (Auto) 0.300, Neut % (Auto) 51.3, Lymph % (Auto) 38.4, [place] % (Auto) 6.8, Eos % (Auto) 2.0, Baso % (Auto) 1.2 H, Absolute Neuts (auto) 4.0, Absolute Lymphs (auto) 2.95, Nucleated RBC % 0, APTT 34.1, Sodium 140, Potassium4.0, Chloride 108, Carbon Dioxide 21.8, Anion Gap 11, BUN 16, Creatinine 0.86, Estim Creat Clear Calc 112.40, Est GFR (MDRD) Non-Af 100, BUN/Creatinine Ratio 18.3, Glucose 124 H, Calcium 9.3 Radiography Diagnostic Testing: Radiology Impression Echocardiogram 11/07/24 07:30 Interpretation Summary Normal LV size. Left ventricular systolic function is normal. The left ventricular ejection fraction is 55 %. Moderate concentric left ventricular hypertrophy. Ordering Physician: Mickey Jones Performed By: Pedro Cartagena and Student D/C Instructions Discharge Diet: No restrictions Return to work on: 11/08/24 DC O2, CPAP, BIPAP Needs Home O2 Discharge instructions: No Meaningful Use Info Meaningful Use Meaningful Use Diagnoses (Choose all that apply): None applicable Ischemic Stroke Statin Dosing Therapy Reference: STATIN DOSE THERAPY REFERENCE: * Patients > 75 years receive moderate or high dose statin therapy. * Patients 75 years or YOUNGER should receive HIGH intensity statin dose unless contraindicated. You will be required to document reason for non-treatment if statin daily dose does not meet guidelines. HIGH DOSE STATIN THERAPY DAILY Atorvastatin > than or = to 40 mg Rosuvastatin > than or = to 20 mg Amlodipine + Atorvastatin > than or = to 2.5/40 mg Ezetimibe + Simvastatin 10/80 mg Simvastatin 80mg Discharge Plan Admission Admit Date/Time: 11/07/24 04:06 Primary Reason for Your Visit: atrial fibrillation Attending Provider: Aurelio Raines Primary Care Provider: Dinh Hennessy Consulting Providers: Mickey Jones; Víctor Villafuerte Discharge Orders/Prescriptions Prescriptions: New metoprolol tartrate 50 mg Tablet 50 mg PO BID Qty: 60 0RF Eliquis 5 mg Tablet 5 mg PO BID Qty: 60 0RF No Action NK Referrals / Follow Up: [facility] [Provider Group] - Within 1 Month Dinh Hennessy MD [Primary Care Provider] - Within 2 Weeks Disposition Disposition (needs filled in before D/C Order can be placed): Home, Self Care Charges/Coding Visit Charges Inpatient E&M: 79956 Disch Hosp >30min 11/07/24 5236 <Electronically signed by Aurelio Raines DO> Cosigner Signature (if applicable): CC: Dr. Aurelio Raines DO; Dr. Dinh Hennessy MD~ Signed [facility] Work Phone: [phone] Consult note [facility] Medical Records Department [address] [place] [address] Consultation - Cardiology 11/07/24 0730 MR#: [id number] Acct: [id number] Name: AMALIA SERVIN Rep #:[id number] : 1965 59 From: Mickey Jonse MD PCP: Dr. Dinh Hennessy MD Status:A DM IN Location: [address] Assessment & Plan Assessment/Plan (1) Paroxysmal atrial fibrillation with RVR: PLAN: Patient presents with his second episode of atrial fibrillation with rapidventricular response rate. He was put on intravenous heparin as well as intravenous diltiazem and his rate is better controlled at this time. Recommendation will be to obtain an echocardiogram to assess his ventricular function Transition him to p.o. Eliquis Transition him to p.o. metoprolol and depending on what happens to his rate further recommendationswill be made as well as the results of the echocardiogram. Above has been explained to him. At some point he may need interval cardioversion or chance that anablation. HPI Consult Data Date of Consult: 11/07/24 HPI Narrative HPI Narrative: AMALIA SERVIN, is a 59 M who presents to the emergency room with palpitations and left arm discomfort. He says that he was fine until approximately a month ago when he started experiencing some palpitations as well as left arm discomfort. He waited for a few hours and this resolved and dissipated. Hesubsequently hadanother episode yesterday and so decided to present to the emergency room. In the emergency room he was noted to be in atrial fibrillation with a rapid ventricular response rate he was transferred [place] here. [facility] Home Medications ?Medication ?Instructions ?Recorded ?Last Taken ?Type NK 11/07/24 Unknown History Allergy/AdvReac Type Severity Reaction Status Date / Time Penicillins Allergy Severe Anaphylaxis Verified 11/07/24 04:07 Social History Smoking Status: Never smoker ROS Constitutional Constitutional: Denies fever(s) or weight loss Eyes Eyes: Reports systems reviewed and no addt'l complaints, except as documented ENT HEENT: Reports systems reviewed and no addt'l complaints, except as documented Cardiovascular Cardiovascular: Reports chest pain at rest, dyspnea at rest and palpitations; Denies chest pain with activity, dyspnea on exertion, edema or paroxysmal nocturnal dyspnea Respiratory/Chest Respiratory/Chest: Denies dyspnea on exertion, productive cough, shortness of breath at rest or shortness of breath with exertion Gastrointestinal Gastrointestinal: Denies change in bowel habits, nausea, vomiting or weight changes Genitourinary Genitourinary: Denies difficulty urinating Musculoskeletal Musculoskeletal: Denies joint stiffness or muscle weakness Integumentary Integumentary: Denies lesions Neurologic Neurologic: Denies dizziness or syncope Psychiatric Psychiatric: Denies anxiety Endocrine Endocrinology: Denies excessive sweating or fatigue Hematologic/Lymphatic Hematologic/Lymphatic: Denies anemia Allergic/Immunologic Allergic/Immunologic: Denies seasonal rhinorrhea Physical Exam Const alert, oriented x3 and no apparent distress General Appearance: cooperative HEENT hearing grossly normal bilaterally Head and Scalp: atraumatic Eyes EOMs intact bilaterally Neck General: normal visual inspection Chest inspection of chest normal and palpation of chest normal Resp normal respiratory effort Auscultation: clear to auscultation bilaterally Cardio S1 normal heart sound and S2 normal heart sound Jugular Venous Distention: JVD Rhythm: abnormal rhythm irregularly irregular GI normal to inspection, nondistended, normoactive bowel sounds Extremity normal capillary refill and no pedal edema Peripheral Pulses: Yes pulses 2+ throughout and femoral pulses present Skin no rashes or lesions noted Neuro oriented x3 and CN's II-XII intact bilaterally Psych Appearance: grossly normal and appropriate Risk Stratification Risk Stratification Applicable: No Objective Data Vital Signs: Vital Signs Temp Pulse Resp BP Pulse Ox O2 Del Method 98.2 F 88 25 H 102/73 97 Room Air 11/07/24 04:30 11/07/24 06:00 11/07/24 06:00 11/07/24 06:00 11/07/24 06:00 11/07/24 06:00 Oxygen Delivery Method Room Air Weight: 232 lb 2.348 oz Body Mass Index (BMI) 33.3 Intake & Output: Intake and Output for Last 24 Hours 11/05/24 11/06/24 11/07/24 23:59 23:59 23:59 Intake Total 35.67 / 35.67 Balance 35.67 / 35.67 Lab / Micro Data 11/07/24 04:25 11/07/24 04:25 Labs: Laboratory Results - last 24 hr 11/07/24 04:25: WBC 7.7, RBC 4.93, Hgb 15.3, Hct 45.2, MCV 91.7, MCH 31.0, MCHC 33.8, RDW Std Deviation 44.6 H, RDW Coeff of Tiffanie 13.2, Plt Count 222, MPV 11.9, Immature Gran % (Auto) 0.300, Neut % (Auto) 51.3, Lymph % (Auto) 38.4, [place] % (Auto) 6.8, Eos % (Auto) 2.0, Baso % (Auto) 1.2 H, Absolute Neuts (auto) 4.0, Absolute Lymphs (auto) 2.95, Nucleated RBC % 0, APTT 34.1, Sodium 140, Potassium4.0, Chloride 108, Carbon Dioxide 21.8, Anion Gap 11, BUN 16, Creatinine 0.86, Estim Creat Clear Calc 112.40, Est GFR (MDRD) Non-Af 100, BUN/Creatinine Ratio 18.3, Glucose 124 H, Calcium 9.3 Cardiology Labs/Tests 11/07/24 04:25: WBC 7.7, RBC 4.93, Hgb 15.3, Hct 45.2, MCV 91.7, MCH 31.0, MCHC 33.8, Plt Count 222, MPV 11.9, Immature Gran % (Auto) 0.300, Neut % (Auto) 51.3,Lymph % (Auto) 38.4, [place] % (Auto) 6.8,Eos % (Auto) 2.0, Baso % (Auto) 1.2 H, Absolute Neuts (auto) 4.0, Nucleated RBC % 0, APTT 34.1, Sodium 140, Potassium 4.0, Chloride 108, Carbon Dioxide 21.8, Anion Gap 11, BUN 16, Creatinine 0.86, Est GFR (MDRD) Non-Af 100, BUN/Creatinine Ratio 18.3, Glucose 124 H, Calcium 9.3 Rhythm: EKG: ECHO: Stress Test: Cardiac Cath: PCI: CT Surgery: Holter monitor: EPS: PPM: CXR: Chest CT Scan: 11/07/24 1716 Cosigner Signature (if applicable): CC: Dr. Dinh Hennessy MD~ Signed [facility]07-09-2025 Discharge summary [facility] Medical Records Department [address] [place] [address] Discharge Summary 11/07/24 1535 MR#: [id number] Acct: [id number] Name: AMALIA SERVIN Rep #:[id number] : 1965 59 From: Aurelio Raines DO PCP: Dr. Dinh Hennessy MD Status:A DM IN Location: [place] [address] Providers Date of Admission: 11/07/24 Primary Care Physician: Dr. Dinh Hennessy MD Consultations 11/07/24 05:47 Consult: Cardiology Routine Consulting Provider: Mickey Jones Reason for Consult: new onset afib w/ rvr, consider DCCV? EMERGENT Consult: No MD Notified: Yes Date Notified: 11/07/24 Time Notified: 05:47 Method of Notification: Text Method of Consult:: In-Person Reason For Visit: AFIB RVR Diagnosis Discharge Diagnosis (1) Paroxysmal atrial fibrillation with RVR: Status: Acute Code(s): I48.0 - Paroxysmal atrial fibrillation Plan: converted to NSR. Suspect he has likely had intermittent afib. cardiology consult. check echo on apixaban and metoprolol tartrate 50 BID. Plan Obesity class I: complicates care and recovery. VTE prophylaxis: not indicated as already anticoagulated. DW pt's at bedside. Medications at Discharge Home Medications NK 11/07/24 apixaban 5 mg tablet (Eliquis) 5 mg PO BID #60 tabs 11/07/24 metoprolol tartrate 50 mg tablet 50 mg PO BID #60 tabs 11/07/24 Hospital Course Operations None Procedures 2-D Echocardiogram Summary of Care Provided Minutes Spent on Discharge: 32 Weight / BMI Weight Weight: 105.3 kg Body Mass Index (BMI) 33.3 ABG / Lab / Microbiology Data 11/07/24 04:25 11/07/24 04:25 Laboratory: Laboratory Results - last 24 hr 11/07/24 04:25: WBC 7.7, RBC 4.93, Hgb 15.3, Hct 45.2, MCV 91.7, MCH 31.0, MCHC 33.8, RDW Std Deviation 44.6 H, RDW Coeff of Tiffanie 13.2, Plt Count 222, MPV 11.9, Immature Gran % (Auto) 0.300, Neut % (Auto) 51.3, Lymph % (Auto) 38.4, [place] % (Auto) 6.8, Eos % (Auto) 2.0, Baso % (Auto) 1.2 H, Absolute Neuts (auto) 4.0, Absolute Lymphs (auto) 2.95, Nucleated RBC % 0, APTT 34.1, Sodium 140, Potassium4.0, Chloride 108, Carbon Dioxide 21.8, Anion Gap 11, BUN 16, Creatinine 0.86, Estim Creat Clear Calc 112.40, Est GFR (MDRD) Non-Af 100, BUN/Creatinine Ratio 18.3, Glucose 124 H, Calcium 9.3 Radiography Diagnostic Testing: Radiology Impression Echocardiogram 11/07/24 07:30 Interpretation Summary Normal LV size. Left ventricular systolic function is normal. The left ventricular ejection fraction is 55 %. Moderate concentric left ventricular hypertrophy. Ordering Physician: Mickey Jones Performed By: Pedro Cartagena and Student D/C Instructions Discharge Diet: No restrictions Return to work on: 11/08/24 DC O2, CPAP, BIPAP Needs Home O2 Discharge instructions: No Meaningful Use Info Meaningful Use Meaningful Use Diagnoses (Choose all that apply): None applicable Ischemic Stroke Statin Dosing Therapy Reference: STATIN DOSE THERAPY REFERENCE: * Patients > 75 years receive moderate or high dose statin therapy. * Patients 75 years or YOUNGER should receive HIGH intensity statin dose unless contraindicated. You will be required to document reason for non-treatment if statin daily dose does not meet guidelines. HIGH DOSE STATIN THERAPY DAILY Atorvastatin > than or = to 40 mg Rosuvastatin > than or = to 20 mg Amlodipine + Atorvastatin > than or = to 2.5/40 mg Ezetimibe + Simvastatin 10/80 mg Simvastatin 80mg Discharge Plan Admission Admit Date/Time: 11/07/24 04:06 Primary Reason for Your Visit: atrial fibrillation Attending Provider: Aurelio Raines Primary Care Provider: Dinh Hennessy Consulting Providers: Mickey Jones; Víctor Villafuerte Discharge Orders/Prescriptions Prescriptions: New metoprolol tartrate 50 mg Tablet 50 mg PO BID Qty: 60 0RF Eliquis 5 mg Tablet 5 mg PO BID Qty: 60 0RF No Action NK Referrals / Follow Up: [facility] [Provider Group] - Within 1 Month Dinh Hennessy MD [Primary Care Provider] - Within 2 Weeks Disposition Disposition (needs filled in before D/C Order can be placed): Home, Self Care Charges/Coding Visit Charges Inpatient E&M: 59299 Disch Hosp >30min 11/07/24 1653 Cosigner Signature (if applicable): CC: Dr. Aurelio Raines DO; Dr. Dinh Hennessy MD~ Signed [facility]07-09-2025 Progress note Author Aurelio trini [facility] Note Date/Time November 07, 2024 2:30p m [facility] Medical Records Department [address] [place] [id number] Progress Note - Hospitalist 11/07/24 0741 MR#: [id number] Acct: [id number] Name: AMALIA SERVIN Rep #:[id number] : 1965 59 From: Aurelio Raines DO PCP: Dr. Dinh Hennessy MD Status:A DM IN Location: [place] [address] Reason for Visit Reason for Visit: Diagnoses Paroxysmal atrial fibrillation (11/07/24) Subjective Subjective Feeling well. Since converted to NSR. Objective Data Objective Data Vital Signs: Vital Signs Temp Pulse Resp BP Pulse Ox O2 Del Method 36.8 C 88 25 H 102/73 97 Room Air 11/07/24 04:30 11/07/24 06:00 11/07/24 06:00 11/07/24 06:00 11/07/24 06:00 11/07/24 06:00 Oxygen Delivery Method Room Air Weight: 105.3 kg Body Mass Index (BMI) 33.3 Intake & Output: Intake and Output for Last 24 Hours 11/05/24 11/06/24 11/07/24 23:59 23:59 23:59 Intake Total 35.67 / 35.67 Balance 35.67 / 35.67 Lab / Micro Data 11/07/24 04:25 11/07/24 04:25 Labs: Laboratory Results - last 24 hr 11/07/24 04:25: WBC 7.7, RBC 4.93, Hgb 15.3, Hct 45.2, MCV 91.7, MCH 31.0, MCHC 33.8, RDW Std Deviation 44.6 H, RDW Coeff of Tiffanie 13.2, Plt Count 222, MPV 11.9, Immature Gran % (Auto) 0.300, Neut % (Auto) 51.3, Lymph % (Auto) 38.4, [place] % (Auto) 6.8, Eos % (Auto) 2.0, Baso % (Auto) 1.2 H, Absolute Neuts (auto) 4.0, Absolute Lymphs (auto) 2.95, Nucleated RBC % 0, APTT 34.1, Sodium 140, Potassium4.0, Chloride 108, Carbon Dioxide 21.8, Anion Gap 11, BUN 16, Creatinine 0.86, Estim Creat Clear Calc 112.40, Est GFR (MDRD) Non-Af 100, BUN/Creatinine Ratio 18.3, Glucose 124 H, Calcium 9.3 Physical Exam Const alert and no apparent distress HEENT head/scalp atraumatic and moist oral mucous membranes Resp normal respiratory effort, no retractions, no use of accessory muscles and clearto auscultation bilaterally Cardio regular rate, regular rhythm, S1 normal heart sound and S2 normal heart sound GI normal to inspection, nondistended, normoactive bowel sounds, soft to palpation and non-tender Assessment & Plan Assessment/Plan (1) Paroxysmal atrial fibrillation with RVR: PLAN: converted to NSR. Suspect he has likely had intermittent afib. cardiology consult. check echo on apixaban and metoprolol tartrate 50 BID. PLAN: Plan Obesity class I: complicates care and recovery. VTE prophylaxis: not indicated as already anticoagulated. DW pt's at bedside. Charges/Coding Visit Charges Inpatient E&M: 25044 Subs Hosp L2 11/07/24 1430 <Electronically signed by Aurelio Raines DO> Cosigner Signature (if applicable): CC: ~ Signed [facility] Work Phone: 1(356) 493-155507-09-2025 [facility] Medical Records Department [address] [place] [address] Discharge Summary 11/07/24 1535 MR#: [id number] Acct: [id number] Name: AMALIA SERVIN Rep #: [id number] : 1965 59 From: Aurelio Raines DO PCP: Dr. Dinh Hennessy MD Status:ADM IN Location: [place] [id number] Providers Date of Admission: 11/07/24 Primary Care Physician: Dr. Dinh Hennessy MD Consultations 11/07/24 05:47 Consult: Cardiology Routine Consulting Provider: Mickey Jones Reason for Consult: new onset afib w/ rvr, consider DCCV? EMERGENT Consult: No MD Notified: Yes Date Notified: 11/07/24 Time Notified: 05:47 Method of Notification: Text Method of Consult:: In-Person Reason For Visit: AFIB RVR Diagnosis Discharge Diagnosis (1) Paroxysmal atrial fibrillation with RVR: Status: Acute Code(s): I48.0 - Paroxysmal atrial fibrillation Plan: converted to NSR. Suspect he has likely had intermittent afib. cardiology consult. check echo on apixaban and metoprolol tartrate 50 BID. Plan Obesity class I: complicates care and recovery. VTE prophylaxis: not indicated as already anticoagulated. DW pt's at bedside. Medications at Discharge Home Medications NK 11/07/24 apixaban 5 mg tablet (Eliquis) 5 mg PO BID #60 tabs 11/07/24 metoprolol tartrate 50 mg tablet 50 mg PO BID #60 tabs 11/07/24 Hospital Course Operations None Procedures 2-D Echocardiogram Summary of Care Provided Minutes Spent on Discharge: 32 Weight / BMI Weight Weight: 105.3 kg Body Mass Index (BMI) 33.3 ABG / Lab / Microbiology Data 11/07/24 04:25 11/07/24 04:25 Laboratory: Laboratory Results - last 24 hr 11/07/24 04:25: WBC 7.7, RBC 4.93, Hgb 15.3, Hct 45.2, MCV 91.7, MCH 31.0, MCHC 33.8, RDW Std Deviation 44.6 H, RDW Coeff of Tiffanie 13.2, Plt Count 222, MPV 11.9, Immature Gran % (Auto) 0.300, Neut % (Auto) 51.3, Lymph % (Auto) 38.4, [place] % (Auto) 6.8, Eos % (Auto) 2.0, Baso % (Auto) 1.2 H, Absolute Neuts (auto) 4.0, Absolute Lymphs (auto) 2.95, Nucleated RBC % 0, APTT 34.1, Sodium 140, Potassium 4.0, Chloride 108, Carbon Dioxide 21.8, Anion Gap 11, BUN 16, Creatinine 0.86, Estim Creat Clear Calc 112.40, Est GFR (MDRD) Non-Af 100, BUN/Creatinine Ratio 18.3, Glucose 124 H, Calcium 9.3 Radiography Diagnostic Testing: Radiology Impression Echocardiogram 11/07/24 07:30 Interpretation Summary Normal LV size. Left ventricular systolic function is normal. The left ventricular ejection fraction is 55 %. Moderate concentric left ventricular hypertrophy. Ordering Physician: Mickey Jones Performed By: Pedro Cartagena and Student D/C Instructions Discharge Diet: No restrictions Return to work on: 11/08/24 DC O2, CPAP, BIPAP Needs Home O2 Discharge instructions: No Meaningful Use Info Meaningful Use Meaningful Use Diagnoses (Choose all that apply): None applicable Ischemic Stroke Statin Dosing Therapy Reference: STATIN DOSE THERAPY REFERENCE: * Patients > 75 years receive moderate or high dose statin therapy. * Patients 75 years or YOUNGER should receive HIGH intensity statin dose unless contraindicated. You will be required to document reason for non-treatment if statin daily dose does not meet guidelines. HIGH DOSE STATIN THERAPY DAILY Atorvastatin > than or = to 40 mg Rosuvastatin > than or = to 20 mg Amlodipine + Atorvastatin > than or = to 2.5/40 mg Ezetimibe + Simvastatin 10/80 mg Simvastatin 80mg Discharge Plan Admission Admit Date/Time: 11/07/24 04:06 Primary Reason for Your Visit: atrial fibrillation Attending Provider: Aurelio Raines Primary Care Provider: Dinh Hennessy Consulting Providers: Mickey Jones; Víctor Villafuerte Discharge Orders/Prescriptions Prescriptions: New metoprolol tartrate 50 mg Tablet 50 mg PO BID Qty: 60 0RF Eliquis 5 mg Tablet 5 mg PO BID Qty: 60 0RF No Action NK Referrals / Follow Up: [facility] [Provider Group] - Within 1 Month Dinh Hennessy MD [Primary Care Provider] - Within 2 Weeks Disposition Disposition (needs filled in before D/C Order can be placed): Home, Self Care Charges/Coding Visit Charges Inpatient E M: 11900 Disch Hosp >30min 11/07/24 1653 Cosigner Signature (if applicable): CC: Dr. Aurelio Raines DO; Dr. Dinh Hennessy MD [facility]07-09-2025 Progress note [facility] Medical Records Department [address] [place] [address] Progress Note - Hospitalist 11/07/24 0741 MR#: [id number] Acct: [id number] Name: AMALIA SERVIN Rep #:[id number] : 1965 59 From: Aurelio Raines DO PCP: Dr. Dinh Hennessy MD Status:A DM IN Location: [place] [address]- Reason for Visit Reason for Visit: Diagnoses Paroxysmal atrial fibrillation (11/07/24) Subjective Subjective Feeling well. Since converted to NSR. Objective Data Objective Data Vital Signs: Vital Signs Temp Pulse Resp BP Pulse Ox O2 Del Method 36.8 C 88 25 H 102/73 97 Room Air 11/07/24 04:30 11/07/24 06:00 11/07/24 06:00 11/07/24 06:00 11/07/24 06:00 11/07/24 06:00 Oxygen Delivery Method Room Air Weight: 105.3 kg Body Mass Index (BMI) 33.3 Intake & Output: Intake and Output for Last 24 Hours 11/05/24 11/06/24 11/07/24 23:59 23:59 23:59 Intake Total 35.67 / 35.67 Balance 35.67 / 35.67 Lab / Micro Data 11/07/24 04:25 11/07/24 04:25 Labs: Laboratory Results - last 24 hr 11/07/24 04:25: WBC 7.7, RBC 4.93, Hgb 15.3, Hct 45.2, MCV 91.7, MCH 31.0, MCHC 33.8, RDW Std Deviation 44.6 H, RDW Coeff of Tiffanie 13.2, Plt Count 222, MPV 11.9, Immature Gran % (Auto) 0.300, Neut % (Auto) 51.3, Lymph % (Auto) 38.4, [place] % (Auto) 6.8, Eos % (Auto) 2.0, Baso % (Auto) 1.2 H, Absolute Neuts (auto) 4.0, Absolute Lymphs (auto) 2.95, Nucleated RBC % 0, APTT 34.1, Sodium 140, Potassium4.0, Chloride 108, Carbon Dioxide 21.8, Anion Gap 11, BUN 16, Creatinine 0.86, Estim Creat Clear Calc 112.40, Est GFR (MDRD) Non-Af 100, BUN/Creatinine Ratio 18.3, Glucose 124 H, Calcium 9.3 Physical Exam Const alert and no apparent distress HEENT head/scalp atraumatic and moist oral mucous membranes Resp normal respiratory effort, no retractions, no use of accessory muscles and clearto auscultation bilaterally Cardio regular rate, regular rhythm, S1 normal heart sound and S2 normal heart sound GI normal to inspection, nondistended, normoactive bowel sounds, soft to palpation and non-tender Assessment & Plan Assessment/Plan (1) Paroxysmal atrial fibrillation with RVR: PLAN: converted to NSR. Suspect he has likely had intermittent afib. cardiology consult. check echo on apixaban and metoprolol tartrate 50 BID. PLAN: Plan Obesity class I: complicates care and recovery. VTE prophylaxis: not indicated as already anticoagulated. DW pt's at bedside. Charges/Coding Visit Charges Inpatient E&M: 83070 Subs Hosp L2 11/07/24 1430 Cosigner Signature (if applicable): CC: ~ Signed [facility]07-09-2025 Consult note Author Mickey Jones [facility] Note Date/Time November 07, 2024 5:16p m [facility] Medical Records Department [address] [place] [address] Consultation - Cardiology 11/07/24 0730 MR#: [id number] Acct: [id number] Name: AMALIA SERVIN Rep #:[id number] : 1965 59 From: Mickey Jones MD PCP: Dr. Dinh Hennessy MD Status:A DM IN Location: [place] [address] Assessment & Plan Assessment/Plan (1) Paroxysmal atrial fibrillation with RVR: PLAN: Patient presents with his second episode of atrial fibrillation with rapidventricular response rate. He was put on intravenous heparin as well as intravenous diltiazem and his rate is better controlled at this time. Recommendation will be to obtain an echocardiogram to assess his ventricular function Transition him to p.o. Eliquis Transition him to p.o. metoprolol and depending on what happens to his rate further recommendations will be made as well as the results of the echocardiogram. Above has been explained to him. At some point he may need interval cardioversion or chance that an ablation. HPI Consult Data Date of Consult: 11/07/24 HPI Narrative HPI Narrative: AMALIA SERVIN, is a 59 M who presents to the emergency room with palpitations and left arm discomfort. He says that he was fine until approximately a month ago when he started experiencing some palpitations as well as left arm discomfort. He waited for a few hours and this resolved and dissipated. He subsequently hadanother episode yesterday and so decided to present to the emergency room. In the emergency room he was noted to be in atrial fibrillation with a rapid ventricular response rate he was [place]. [facility] Home Medications ?Medication ?Instructions ?Recorded ?Last Taken ?Type NK 11/07/24 Unknown History Allergy/AdvReac Type Severity Reaction Status Date / Time Penicillins Allergy Severe Anaphylaxis Verified 11/07/24 04:07 Social History Smoking Status: Never smoker ROS Constitutional Constitutional: Denies fever(s) or weight loss Eyes Eyes: Reports systems reviewed and no addt'l complaints, except as documented ENT HEENT: Reports systems reviewed and no addt'l complaints, except as documented Cardiovascular Cardiovascular: Reports chest pain at rest, dyspnea at rest and palpitations; Denies chest pain with activity, dyspnea on exertion, edema or paroxysmal nocturnal dyspnea Respiratory/Chest Respiratory/Chest: Denies dyspnea on exertion, productive cough, shortness of breath at rest or shortness of breath with exertion Gastrointestinal Gastrointestinal: Denies change in bowel habits, nausea, vomiting or weight changes Genitourinary Genitourinary: Denies difficulty urinating Musculoskeletal Musculoskeletal: Denies joint stiffness or muscle weakness Integumentary Integumentary: Denies lesions Neurologic Neurologic: Denies dizziness or syncope Psychiatric Psychiatric: Denies anxiety Endocrine Endocrinology: Denies excessive sweating or fatigue Hematologic/Lymphatic Hematologic/Lymphatic: Denies anemia Allergic/Immunologic Allergic/Immunologic: Denies seasonal rhinorrhea Physical Exam Const alert, oriented x3 and no apparent distress General Appearance: cooperative HEENT hearing grossly normal bilaterally Head and Scalp: atraumatic Eyes EOMs intact bilaterally Neck General: normal visual inspection Chest inspection of chest normal and palpation of chest normal Resp normal respiratory effort Auscultation: clear to auscultation bilaterally Cardio S1 normal heart sound and S2 normal heart sound Jugular Venous Distention: JVD Rhythm: abnormal rhythm irregularly irregular GI normal to inspection, nondistended, normoactive bowel sounds Extremity normal capillary refill and no pedal edema Peripheral Pulses: Yes pulses 2+ throughout and femoral pulses present Skin no rashes or lesions noted Neuro oriented x3 and CN's II-XII intact bilaterally Psych Appearance: grossly normal and appropriate Risk Stratification Risk Stratification Applicable: No Objective Data Vital Signs: Vital Signs Temp Pulse Resp BP Pulse Ox O2 Del Method 98.2 F 88 25 H 102/73 97 Room Air 11/07/24 04:30 11/07/24 06:00 11/07/24 06:00 11/07/24 06:00 11/07/24 06:00 11/07/24 06:00 Oxygen Delivery Method Room Air Weight: 232 lb 2.348 oz Body Mass Index (BMI) 33.3 Intake & Output: Intake and Output for Last 24 Hours 11/05/24 11/06/24 11/07/24 23:59 23:59 23:59 Intake Total 35.67 / 35.67 Balance 35.67 / 35.67 Lab / Micro Data 11/07/24 04:25 11/07/24 04:25 Labs: Laboratory Results - last 24 hr 11/07/24 04:25: WBC 7.7, RBC 4.93, Hgb 15.3, Hct 45.2, MCV 91.7, MCH 31.0, MCHC 33.8, RDW Std Deviation 44.6 H, RDW Coeff of Tiffanie 13.2, Plt Count 222, MPV 11.9, Immature Gran % (Auto) 0.300, Neut % (Auto) 51.3, Lymph % (Auto) 38.4, [place] % (Auto) 6.8, Eos % (Auto) 2.0, Baso % (Auto) 1.2 H, Absolute Neuts (auto) 4.0, Absolute Lymphs (auto) 2.95, Nucleated RBC % 0, APTT 34.1, Sodium 140, Potassium4.0, Chloride 108, Carbon Dioxide 21.8, Anion Gap 11, BUN 16, Creatinine 0.86, Estim Creat Clear Calc 112.40, Est GFR (MDRD) Non-Af 100, BUN/Creatinine Ratio 18.3, Glucose 124 H, Calcium 9.3 Cardiology Labs/Tests 11/07/24 04:25: WBC 7.7, RBC 4.93, Hgb 15.3, Hct 45.2, MCV 91.7, MCH 31.0, MCHC 33.8, Plt Count 222, MPV 11.9, Immature Gran % (Auto) 0.300, Neut % (Auto) 51.3,Lymph % (Auto) 38.4, [place] % (Auto) 6.8, Eos % (Auto) 2.0, Baso % (Auto) 1.2 H, Absolute Neuts (auto) 4.0, Nucleated RBC % 0, APTT 34.1, Sodium 140, Potassium 4.0, Chloride 108, Carbon Dioxide 21.8, Anion Gap 11, BUN 16, Creatinine 0.86, Est GFR (MDRD) Non- Af 100, BUN/Creatinine Ratio 18.3, Glucose 124 H, Calcium 9.3 Rhythm: EKG: ECHO: Stress Test: Cardiac Cath: PCI: CT Surgery: Holter monitor: EPS: PPM: CXR: Chest CT Scan: 11/07/24 1816 <Electronically signed by Mickey Jones MD> Cosigner Signature (if applicable): CC: Dr. Dinh Hennessy MD~ Signed [facility] Work Phone: [phone]) 510-339307-09-2025 History and physical note Author Víctor Villafuerte [facility] Note Date/Time November 07, 2024 5:47a m [facility] Medical Records Department [address] [place] [address] H&P Exam - Hospitalist 11/07/24 0404 MR#: [id number] Acct: [id number] Name: AMALIA SERVIN Rep #:[id number] : 1965 59 From: Víctor Pagan chinedu SINGH PCP: Dr. Dinh Hennessy MD Status:A DM IN Location: [place] [address] HPI - General General Date of Admission: 11/07/24 Date of Service: 11/07/24 Chief Complaint: A-fib with RVR HPI Narrative AMALIA SERVIN, is a 59 M who presented initially to [facility] ED on the evening of 11/06 with chest discomfort and palpitations. He was found there to have new onset A-fib with RVR with rate in the 140s to 150s. Started on Cardizem drip with improvement in rate to the 90s to 100s but remained in A-fib. No cardiology services available there so patient was transferred here on the mold filler of 11/07 for further management. I saw the patient at bedside this morning. Patient was laying back comfortably in bed, conversing normally, in noacute distress. He does report mild chest discomfort with palpitations currently and on the monitor he remains in A-fib with rate in the 90s to 100s. He is currently on the Cardizem drip at 5. Patient has no significant past medical history, is on no medications at home. He reports an episode similar tothis about 1 month ago that lasted for 10 to 15 minutes and then resolved on itsown. He denies any alcohol or tobacco use. At outside ED, his lab workup was benign with troponins negative x 2, normal BNP and normal TSH. CBC and BMP wereunremarkable. PFSH Home Medications ?Medication ?Instructions ?Recorded ?Last Taken ?Type NK 11/07/24 Unknown History Allergy/AdvReac Type Severity Reaction Status Date / Time Penicillins Allergy Severe Anaphylaxis Verified 11/07/24 04:07 Social History Smoking Status: Never smoker ROS Constitutional Constitutional: Denies chills, fatigue, fever(s) or weakness Eyes Eyes: Denies change in vision Cardiovascular Cardiovascular: Reports chest pain, palpitations and rapid heart rate; Denies dyspnea on exertion, edema, lightheadedness or orthopnea Respiratory/Chest Respiratory/Chest: Denies cough, shortness of breath at rest or wheezing Gastrointestinal Gastrointestinal: Denies abdominal pain Neurologic Neurologic: Denies dizziness Vital Signs Vital Signs Vital Signs: Weight Weight: 105.3 kg Body Mass Index (BMI) 33.3 Physical Exam Const alert, oriented x3 and no apparent distress Constitutional Narrative: Pleasant middle-age male, class I obesity, sitting back comfortably in bed, conversing normally, in no acute distress. General Appearance: cooperative and comfortable HEENT normocephalic, head/scalp atraumatic, hearing grossly normal bilaterally, nasal mucous membranes and turbinates normal and moist oral mucous membranes Eyes PERRL, EOMs intact bilaterally and conjunctivae normal Neck full ROM Chest inspection of chest normal Resp normal respiratory effort, normal air movement, no use of accessory muscles and clear to auscultation bilaterally Cardio no murmurs and peripheral pulses 2+ throughout Cardio Narrative: A-fib, rate controlled. GI normal to inspection, nondistended, normoactive bowel sounds, soft to palpation,non-tender and non-distended Back/Spine normal ROM Extremity normal to inspection, full ROM and no pedal edema Skin no rashes or lesions noted Psych mental status grossly normal Results Lab / Micro Data 11/07/24 04:25 11/07/24 04:25 Assessment & Plan Assessment/Plan (1) Paroxysmal atrial fibrillation with RVR: PLAN: Plan Patient is a 59-year-old male who initially presented to [facility] ED on 11/06/2024 with chest discomfort and palpitations. Was found to have new onset A- fib with RVR and was transferred to [facility] on 11/07 for further management. 1. New onset A-fib with RVR ? Admit under inpatient status to PCU. Cardiology consulted. No significant past medical history. Presented with A-fib with RVR with rate to the 140s 150s. Rate improved to the 90s to 100s on Cardizem drip but remains in A-fib. Episode of chest discomfort with palpitations started about 30 minutes prior to his arrival to their ED. Appears patient may be a good cardioversion candidate but will defer this to cardiology. Will keep patient n.p.o. for now. Will continue Cardizem and heparin drips. 2. Class I obesity ? BMI 33 on admit. Complicates hospital course, care and prognosis. DVT prophylaxis: Not indicated, on heparin drip CODE STATUS: Full code, verified Expected disposition: Home, TBD Total clinical time spent by myself addressing the patient's medical issues, reviewing all the data, and collaborating with patient's care team: 55 minutes. Charges/Coding Visit Charges Inpatient E&M: 28689 Init Hosp L2 11/07/24 0547 <Electronically signed by Víctor Villafuerte DO> Cosigner Signature (if applicable): CC: Dr. Víctor Villafuerte DO; Dr. Dinh Hennessy MD~ Signed [facility] Work Phone: [phone]) 630-940307-09-2025 Evaluation note* Diagnosis Onset Date Resolution Status Admit Date Paroxysmal atrial fibrillati on with RVR acute November 07, 2024 4 :06am [facility] Work Phone: [phone]) [phone] Evaluation note* Diagnosis Onset Date Resolution Status Admit Date Paroxysmal atrial fibrillati on with RVR resolved November 07, 2024 4 :06am Paroxysmal atrial fibrillation acute December 03, 2024 1:48pm [facility] Work Phone: [phone]) [phone] History and physical note [facility] Medical Records Department [address] [place] [address] H&P Exam - Hospitalist 11/07/24 0404 MR#: [id number] Acct: [id number] Name: AMALIA SERVIN Rep #:[id number] : 1965 59 From: Víctor hernadez DO PCP: Dr. Dinh Hennessy MD Status:A DM IN Location: [place] [id number] HPI - General General Date of Admission: 11/07/24 Date of Service: 11/07/24 Chief Complaint: A-fib with RVR HPI Narrative AMALIA SERVIN, is a 59 M who presented initially to [facility] ED on the evening of 11/06 with chest discomfort and palpitations. He was found there to have new onset A-fib with RVR with ratein the 140s to 150s. Started on Cardizem drip with improvement in rate to the 90s to 100s but remained in A-fib. No cardiology services available there so patient was transferred here on the mold filler of 11/07 for further management. I saw the patient at bedside this morning. Patient was laying back comfortably in bed, conversing normally, in noacute distress. He does report mild chest discomfort with palpitations currently and on the monitor he remains in A-fib with rate in the 90s to 100s. Catrina rios is currently on the Cardizem drip at 5. Patient has no significant past medical history, is on nomedications at home. He reports an episode similar tothis about 1 month ago that lasted for 10 to 15 minutes and then resolved on itsown. He denies any alcohol or tobacco use. At outside ED, his lab workup was benign with troponins negative x 2, normal BNP and normal TSH. CBC and BMP wereunremarkable. [facility] Home Medications ?Medication ?Instructions ?Recorded ?Last Taken ?Type NK 11/07/24 Unknown History Allergy/AdvReac Type Severity Reaction Status Date / Time Penicillins Allergy Severe Anaphylaxis Verified 11/07/24 04:07 Social History Smoking Status: Never smoker ROS Constitutional Constitutional: Denies chills, fatigue, fever(s) or weakness Eyes Eyes: Denies change in vision Cardiovascular Cardiovascular: Reports chest pain, palpitations and rapid heart rate; Denies dyspnea on exertion, edema, lightheadedness or orthopnea Respiratory/Chest Respiratory/Chest: Denies cough, shortness of breath at rest or wheezing Gastrointestinal Gastrointestinal: Denies abdominal pain Neurologic Neurologic: Denies dizziness Vital Signs Vital Signs Vital Signs: Weight Weight: 105.3 kg Body Mass Index (BMI) 33.3 Physical Exam Const alert, oriented x3 and no apparent distress Constitutional Narrative: Pleasant middle-age male, class I obesity, sitting back comfortably in bed, conversing normally, inno acute distress. General Appearance: cooperative and comfortable HEENT normocephalic, head/scalp atraumatic, hearing grossly normal bilaterally, nasal mucous membranes and turbinates normal and moist oral mucous membranes Eyes PERRL, EOMs intact bilaterally and conjunctivae normal Neck full ROM Chest inspection of chest normal Resp normal respiratory effort, normal air movement, no use of accessory muscles and clear to auscultation bilaterally Cardio no murmurs and peripheral pulses 2+ throughout Cardio Narrative: A-fib, rate controlled. GI normal to inspection, nondistended, normoactive bowel sounds, soft to palpation,non-tender and non-distended Back/Spine normal ROM Extremity normal to inspection, full ROM and no pedal edema Skin no rashes or lesions noted Psych mental status grossly normal Results Lab / Micro Data 11/07/24 04:25 11/07/24 04:25 Assessment & Plan Assessment/Plan (1) Paroxysmal atrial fibrillation with RVR: PLAN: Plan Patient is a 59-year-old male who initially presented to [facility] ED on 11/06/2024 withchest discomfort and palpitations. Was found to have new onset A-fib with RVR and was transferred to [facility] on 11/07 for further management. 1. New onset A-fib with RVR ? Admit under inpatient status to PCU. Cardiology consulted. No significant past medical history. Presented with A-fib with RVR with rate to the 140s 150s. Rate improved to the 90s to 100s on Cardizem drip but remains in A-fib. Episode of chest discomfort with palpitations started about 30 minutes prior to his arrival to their ED. Appears patient may be a good cardioversion candidate but will defe r this to cardiology. Will keep patient n.p.o. for now. Will continue Cardizem and heparin drips. 2. Class I obesity ? BMI 33 on admit. Complicates hospital course, care and prognosis. DVT prophylaxis: Not indicated, on heparin drip CODE STATUS: Full code, verified Expected disposition: Home, TBD Total clinical time spent by myself addressing the patient's medical issues, reviewing all the data, and collaborating with patient's care team: 55 minutes. Charges/Coding Visit Charges Inpatient E&M: 93625 Init Hosp L2 11/07/24 0552 Cosigner Signature (if applicable): CC: Dr. Víctor Villafuerte DO; Dr. Dinh Hennessy MD~ [facility] (narrative)No reason for referral information availableWParma Community [facility] Work Phone: Summary Purpose Family History No Family History Records Found Father Status:Active Comments:[facility]. Mother Status:Active Comments: d. cancer Father Status:Active Comments:In [facility]. Mother Status:Active Comments: d. cancer Father Status:Active Comments:In [facility]. Mother Status:Active Comments: d. cancer Father Status:Active Comments:In [facility]. Mother Status:Active Comments: d. cancer Father Status:Active Comments:In [facility]. Mother Status:Active Comments: d. cancer Father Status:Active Comments:In [facility]. Mother Status:Active Comments: d. cancer Father Status:Active Comments:In [facility]. Mother Status:Active Comments: d. cancer Father Status:Active Comments:In [facility]. Mother Status:Active Comments: d. cancer Father Status:Active Comments:In [facility]. Mother Status:Active Comments: d. cancer Father Status:Active Comments:In [facility]. Mother Status:Active Comments: d. cancer Father Status:Active Comments:In [facility]. Mother Status:Active Comments: d. cancer Father Status:Active Comments:In [facility]. Mother Status:Active Comments: d. cancer Father Status:Active Comments:In [facility]. Mother Status:Active Comments: d. cancer Father Status:Active Comments:In [facility]. Mother Status:Active Comments: d. cancer Relationship Condition Age at Onset Recorded Date/T real mother Malignant neoplasm Unknown Congestive heart failure Unknown grandfather Myocardial infarction Unknown grandmother Cardiac disease Unknown Myocardial infarction Unknown Cerebrovascular accident (CVA) Unknown sister Cardiomyopathy Unknown Advance Directives No Advanced Directives Records Found Advance Directive Response Recorded Date/ Time Do you have a Healthcare Power of Hand Umbrella Tipper? No November 07, 2024 3:45am Chief Complaint and Reason for Visit Chief Complaint Admit Date AFIB RVR November 07, 2024 4:06a m Reason for Visit Admit Date Paroxysmal atrial fibrillation with RVR November 07, 2024 4:06am Chief Complaint Admit Date AFIB RVR November 07, 2024 4:06a m Amb Documentation November 08, 2024 1:04 pm S/P [facility] 11/07December 03, 2024 1:4 8pm Reason for Visit Admit Date Paroxysmal atrial fibrillation with RVR November 07, 2024 4:06am Paroxysmal atrial fibrillation November 1:48pm Additional Source Comments (unrecognized sect ion and content) No Status Records FoundNo Status Records FoundNo Status Records FoundNo Status Records FoundNo Status Records FoundNo Status Records FoundNo Status Records Found INFORMATION SOURCE (unrecogn ized section and content) DATE CREATED AUTHOR 03/16/2018 [facility] [place] DATE CREATED AUTHOR AUTHOR'S ORGANIZ ATION 07/25/2018 [facility] DATE CREATED AUTHOR AUTHOR'S ORGANIZ ATION 07/30/2018 [facility] DATE CREATED AUTHOR AUTHOR'S ORGANIZ ATION 10/26/2022 [facility] DATE CREATED AUTHOR AUTHOR'S ORGANIZ ATION 11/11/2024 [facility] DATE CREATED AUTHOR AUTHOR'S ORGANIZ ATION 11/25/2024 [facility] DATE CREATED AUTHOR AUTHOR'S ORGANIZ ATION [facility] Care Teams (unrecognized sec tion and content) Team Status: Active Member Role/Relationship Status Dates Dr. Dinh Hennessy MD Primary Care Provider Active Team Status: Inactive Member Role/Relationship Status Dates Dr. Dinh Hennessy MD Primary Care Provider Active Start: November 07, 2024 End: November 07, 2024 Dr. Víctor Villafuerte DO Admit Provider Active Start: November 07, 2024 End: November 07, 2024 Dr. Víctor Villafuerte DO Other Provider Active Start: November 07, 2024 End: November 07, 2024 Dr. Mickey Jones MD Other Provider Active Start : November 07, 2024 End: November 07, 2024 Dr. Aurelio Raines DO Attending Provider Active Start: November 07, 2024 End: November 07, 2024 Team Status: Active Member Role/Relationship Status Dates Dr. Dinh Hennessy MD Primary Care Provider Active Start: November 07, 2024 Dr. Mickey Jones MD Attending Provider Active S tart: November 07, 2024 Team Status: Active Member Role/Relationship Status Dates ALBERTO Flores Primary Care Provider Active Team Status: Active Member Role/Relationship Status Dates Dr. Dinh Hennessy MD Primary Care Provider Active Start: November 08, 2024 Kallie Patricia NP, [facility] Attending Provider Active Start: November 08, 2024 Team Status: Inactive Member Role/Relationship Status Dates Dr. Dinh Hennessy MD Referring Provider Active Start: December 03, 2024 End: December 03, 2024 Dinh Cabrales NP, [facility] Attending Provider Active S tart: December 03, 2024 End: December 03, 2024 ALBERTO Flores Primary Care Provider Active Start: December 03, 2024 End: December 03, 2024 FOR RECORDS PERTAINING TO PATIENTS WHO ARE OR HAVE BEEN ENROLLED IN A CHEMICAL DEPENDENCY/SUBSTANCEABUSE PROGRAM, SOME INFORMATION MAY BE OMITTED. This clinical summary was aggregated from multiple sources. Caution should be exercised in using it in the provision of clinical care. This summary normalizes information from multiple sources, and as a consequence, information in this document may materially change the coding, format and clinical context of patient data. In addition, data may be omitted in some cases. CLINICAL DECISIONS SHOULD BE BASED ON THE PRIMARY CLINICAL RECORDS. [facility] [employer] provides no warranty or guarantee of the accuracy or completeness of information in this document.
--- NOTE | 2024-12-31 14:37 | STRESSREP_ITS ---
Stress Test Report Exercise myocardial perfusion stress test. 59-year-old man with a history of chest pain. Stress protocol: Resting EKG demonstrates normal sinus rhythm with a rate of 54 bpm resting blood pressure is 130/88 mmHg. The patient exercised according to the regular Ad protocol for a total duration of 6 minutes attaining a maximum heart rate of 157 bpm which was 97% of maximum predicted heart rate; the maximum workload was 7.2 metabolic equivalents. At rest there were no ST or T wave changes noted to suggest ischemia and at peak exercise upsloping ST changes only were noted which did not meet the criteria for ischemia. No clinical angina was noted the test was terminated due to the target heart rate being achieved/fatigue. The peak blo od pressure was 158/70 mmHg. Rate-pressure product was 24,008. Myocardial perfusion protocol. 14 point mCi of technetium 99m sestamibi was injected at rest. The patient exercised according to regular Ad protocol for total duration of 6 minutes and at peak exercise 45 mCi of technetium 99m sestamibi was injected stress images were obtained stress and rest images were reconstructed in comparing the short axis vertical long and horizontal long axis. Gated images were also obtained. Perfusion SPECT analysis: Review of the stress images demonstrate normal uptake of tracer noted in all areas of the myocardium. The resting images similarly demonstrate normal uptake of tracer noted in all areas of the myocardium. No areas of reversibility are noted to suggest ischemia no previous infarct was noted. Gated SPECT analysis: The gated ejection fraction is 65%. Conclusion: Normal exercise myocardial perfusion stress test at a moderate workload.
== END | disposition home or self-care (01) ==
LOC: CVS 06:47
PROVIDERS: PCP Physician Assistant; Referring Provider Nurse Practitioner Family; Visit Provider Nurse Practitioner Family
DX: I48.0 Paroxysmal atrial fibrillation (principal)
CPT/HCPCS: 78452; 93017; A9500; A4216